=== PATIENT | female | born 1985 | race Caucasian/White ===

== ENCOUNTER 2023-07-28 20:56 | Observation (INO) ==
[2023-07-28] MEDS: SODIUM CHLORIDE 0.9% 1,000 ML IV SCH (21:16)
[2023-07-28 21:44] LABS: Basophils # (auto) 0.07 K/uL (0.00-0.20); Basophils % (auto) 0.7 %; Eosinophils # (auto) 0.03 K/uL (0.00-0.50); Eosinophils % (auto) 0.3 %; Hematocrit (blood only) 46.3 % (37.0-47.0); Hemoglobin 15.8 g/dl (12.0-16.0); Immature Granulocytes # (auto) 0.03 K/uL (0.01-0.20); Immature Granulocytes % (auto) 0.3 %; Lymphocytes # (auto) 2.48 K/uL (1.20-3.40); Lymphocytes % (auto) 24.8 %; Mean Corpuscular Hemoglobin 28.6 pg (25.0-34.0); Mean Corpuscular Hgb Conc 34.1 g/dL (32.0-36.0); Mean Corpuscular Volume 83.9 fL (80.0-100.0); Mean Platelet Volume 11.1 fL (9.4-12.4); Monocytes # (auto) 0.72 K/uL (0.11-0.59); Monocytes % (auto) 7.2 %; Neutrophils # (auto) 6.68 K/uL (1.40-6.50); Neutrophils % (auto) 66.7 %; Platelet Count 379 K/uL (130-400); RDW Coefficient of Variation 11.9 % (11.5-14.5); RDW Standard Deviation 36.1 fL (36.4-46.3); Red Blood Count 5.52 M/uL (4.20-5.40); White Blood Count 10.01 K/ul (4.8-10.8)
[2023-07-28 21:52] LABS: Pregnancy Test, Serum Negative (Negative)
[2023-07-28 21:56] LABS: Albumin Globulin Ratio 1.3 (0.9-2); Albumin Level 4.5 gm/dl (3.4-5.0); BUN Creatinine Ratio 8.9 (10-20); Bilirubin,Total 1.5 mg/dl (0.2-1.0); Calcium 9.7 mg/dl (8.6-10.3); Creatinine Clr Calc Pharmacy 82.9 ml/min; Est GFR (African American) 82.4 ml/min; Est GFR (Non-African American) 71.1 ml/min; Globulin 3.5 gm/dl (2.5-4.0); Potassium 3.5 mmol/L (3.5-5.1)
[2023-07-28] MEDS: ONDANSETRON INJ 2 MG/ML 2 ML VIAL IV STA (22:04)
[2023-07-28] MEDS: LACTATED RINGER'S 1,000 ML IV ONE (23:13)
[2023-07-28] MEDS: diphenhydrAMINE 50 MG/ML VIAL IV STA (23:13)
[2023-07-28] MEDS: METOCLOPRAMIDE HCL INJ 5 MG/ML 2 ML VIAL IV STA (23:13)
--- NOTE | 2023-07-28 23:13 | Emergency Department Note ---
Impression & Plan Nausea & vomiting, Acute epigastric pain, H/O gastric sleeve ED Provider Note Provider: Wei Herrera MD DATE OF SERVICE: 07/28/2023 CHIEF COMPLAINT: Recurrent nausea and vomiting, slight upper abdominal HISTORY OF PRESENT ILLNESS: Patient is a 38-year-old female past medical history of hypothyroidism and gastric sleeve presenting here with family today for evaluation of ongoing issues with recurrent nausea and vomiting. States he had her first episode about a month ago on June 28. He just started several days prior Wegovtyler. States had her last weekly injection this past Sunday. The initial event in June was seen at [facility] acquired medication but was able to go home. Followed up with GI on Sunday and put together that her symptoms were likely secondary to the medication. Seen at [facility] on Sunday and given multiple medications including Zofran, Reglan, and Compazine by her report. Had abdominal ultrasound possibly with some pancreatic inflammation. Low potassium this was repleted and she was sent home. Last several days she was using Zofran but minimally effective. Continues to vomit. Thus came here for evaluation today. Little bit of epigastric discomfort. Denies chest pain. Lightheaded and weak. No diarrhea. No blood in the vomit has been having some chills. PAST MEDICAL HISTORY: As noted above MEDICATIONS: Reviewed home medications SOCIAL HISTORY: No tobacco use reported. PHYSICAL EXAM: GENERAL: alert and oriented in no acute distress on stretcher Head: normocephalic and atraumatic EYES: No injection, discharge or icterus. NECK: Trachea midline. ENT: Mucous membranes pink and moist. LUNGS: Airway patent. No retractions. Breath sounds clear with good air entry bilaterally. HEART: Regular rate and rhythm. No chest wall tenderness ABDOMEN: Soft very slight deep epigastric tenderness. No guarding. No peritonitis. No lower abdominal tenderness. SKIN: Acyanotic, warm, dry, without rashes EXTREMITIES: Without swelling, tenderness or deformity NEUROLOGICAL: No focal deficits. No aphasia. No facial droop or slurred speech. EK bpm. Normal sinus rhythm. No PVC or PAC. No acute ST segment elevation or depression with a QTc of 434. CONTINUOUS CARDIAC MONITORING: was ordered and showed a heart rate of 70s to 80s bpm in normal sinus rhythm 1 view chest x-ray per my interpretation: No evidence of free air. No pneumonia or pneumothorax. Normal cardiac silhouette. Patient's laboratory studies and imaging reviewed. Differential includes Appendicitis, infections, diverticulitis, UTI, obstruction, mesenteric ischemia, aortic pathology, inflammatory bowel disease, renal colic, PUD, pancreatitis, biliary pathology, hernia, volvulus, constipation, as well as other pathologies. IMPRESSION/MEDICAL DECISION MAKING: Blood work from triage obtained. Negative . Evidence of hepatitis or pancreatitis. Slight anion gap likely dehydrational but no evidence of severe hypokalemia or hyponatremia. No leukocytosis. No anemia. Very slight deep tenderness but given her history of gastric sleeve will obtain a CT abdomen pelvis. Given some IV fluid here. Zofran minimally effective for nausea after dose here and will try some Reglan and Benadryl which has been more effective by her report. Seems likely this is secondary to Wegovy and not having diarrheal symptoms. Some of the tremor she reports likely more from dehydration and the continued vomiting. Do not feel antibiotics are indicated. CT of the abdomen pelvis completed and review of report without significant abnormality noted. She has had mild improvement with Reglan. Will bring into the hospital given her failure of outpatient therapy with antiemetics. Patient in agreement this plan. Hospitalist contacted. DIAGNOSIS: Intractable nausea and vomiting, history of gastric sleeve DISPOSITION: Hospitalist will evaluate Patient was agreeable with this plan. Past Med/Surg History Social History Smoking Status: Never smoker Preferred Language: Montserratian Feels Safe at Home: Yes Allergies Allergies Allergy/AdvReac Type Severity Reaction Status Date / Time semaglutide [From Wegovy] AdvReac Severe Vomiting Verified 07/29/23 00:19 Home Meds Home Medications Medication Instructions Recorded Confirmed cyanocobalamin (vitamin B-12) 1,000 mcg IM MONTHLY 07/29/23 07/29/23 1,000 mcg/mL injection solution fluoxetine 20 mg capsule 20 mg PO HS 07/29/23 07/29/23 gabapentin 300 mg capsule 300 mg PO [facility] 07/29/23 07/29/23 levothyroxine 50 mcg tablet 50 mcg PO DAILYBB 07/29/23 07/29/23 norethindrone (contraceptive) 0.35 0.35 mg PO HS 07/29/23 07/29/23 mg tablet omeprazole 40 mg capsule,delayed 40 mg PO [facility] 07/29/23 07/29/23 release ondansetron 4 mg disintegrating 4 mg PO Q8 PRN Nausea 07/29/23 07/29/23 tablet spironolactone 50 mg tablet 50 mg PO HS 07/29/23 07/29/23 Results & Data (ED) Vital Signs Vital Signs - 24 hr 07/28/23 20:59 07/28/23 21:13 07/28/23 21:13 Temperature 36.8 C Temperature Source Temporal Artery Scan Pulse Rate 97 H Respiratory Rate 18 Respiratory Effort / Characteristics Non-Labored Spontaneous Respiratory Depth Normal Respiratory Pattern Regular Blood Pressure 157/83 H Blood Pressure Mean 107 Pulse Oximetry 99 Oxygen Delivery Method Room Air Room Air Sepsis Recent Fever Within 48 Hours No Sepsis New/Unexplained Change in Mental Status No Sepsis Action Taken by Nursing No Action Required 07/28/23 21:13 Temperature Temperature Source Pulse Rate 87 Respiratory Rate Respiratory Effort / Characteristics Respiratory Depth Respiratory Pattern Blood Pressure Blood Pressure Mean Pulse Oximetry Oxygen Delivery Method Sepsis Recent Fever Within 48 Hours Sepsis New/Unexplained Change in Mental Status Sepsis Action Taken by Nursing Laboratory Data 07/28/23 21:14 07/28/23 21:14 Lab Results 07/28/23 Range/Units 21:14 WBC 10.01 (4.8-10.8) K/ul RBC 5.52 H (4.20-5.40) M/uL Hgb 15.8 (12.0-16.0) g/dl Hct 46.3 (37.0-47.0) % MCV 83.9 (80.0-100.0) fL MCH 28.6 (25.0-34.0) pg MCHC 34.1 (32.0-36.0) g/dL RDW Std Deviation 36.1 L (36.4-46.3) fL RDW Coeff of Marycarmen 11.9 (11.5-14.5) % Plt Count 379 (130-400) K/uL MPV 11.1 (9.4-12.4) fL Immature Gran % (Auto) 0.3 % Neut % (Auto) 66.7 % Lymph % (Auto) 24.8 % [place] % (Auto) 7.2 % Eos % (Auto) 0.3 % Baso % (Auto) 0.7 % Neut # (Auto) 6.68 H (1.40-6.50) K/uL Lymph # (Auto) 2.48 (1.20-3.40) K/uL [place] # (Auto) 0.72 H (0.11-0.59) K/uL Eos # (Auto) 0.03 (0.00-0.50) K/uL Baso # (Auto) 0.07 (0.00-0.20) K/uL Immature Gran # (Auto) 0.03 (0.01-0.20) K/uL Sodium 137 (136-145) mmol/L Potassium 3.5 (3.5-5.1) mmol/L Chloride 104 (98-107) mmol/L Carbon Dioxide 20 L (21-32) mmol/L Anion Gap 13 H (3-11) BUN 9 (6-23) mg/dl Creatinine 1.01 (0.6-1.2) mg/dl Est Cr Clr Drug Dosing 82.9 ml/min Est GFR ( Amer) 82.4 ml/min Est GFR (Non-Af Amer) 71.1 ml/min BUN/Creatinine Ratio 8.9 L (10-20) Glucose 98 (70-99(Fasting)) mg/dl Calcium 9.7 (8.6-10.3) mg/dl Total Bilirubin 1.5 H (0.2-1.0) mg/dl AST 14 (13-39) U/L ALT 6 L (7-52) U/L Alkaline Phosphatase 59 (34-104) U/L Total Protein 8.0 (6.0-8.3) gm/dl Albumin 4.5 (3.4-5.0) gm/dl Globulin 3.5 (2.5-4.0) gm/dl Albumin/Globulin Ratio 1.3 (0.9-2) Lipase 51 (11-82) U/L HCG, Qual Negative (Negative) Administered Medications Discontinued Medications Diphenhydramine HCl (Diphenhydramine 50 Mg/Ml Vial) 25 mg IV NOW STA Stop: 07/28/23 22:59 Last Admin: 07/28/23 23:13 Dose: 25 mg Documented By: [facility] Sodium Chloride (Nss) 1,000 mls @ 999 mls/hr IV .Q1H1M VIOLET Stop: 07/28/23 22:15 Last Infusion: 07/28/23 22:32 Dose: Infused Documented By: [facility] Admin: 07/28/23 21:16 Dose: 999 mls/hr Documented By: Burt Lactated Ringer's (Lr) 1,000 mls @ 999 mls/hr IV .Q1H1M ONE Stop: 07/28/23 23:58 Last Infusion: 07/29/23 00:41 Dose: Infused Documented By: Admin: 07/28/23 23:13 Dose: 999 mls/hr Documented By: ELYSIA Ioversol (Optiray 320 500ml) 88 ml IV ONCE ONE Stop: 07/28/23 23:29 Last Admin: 07/28/23 23:28 Dose: 88 ml Documented By: BONNY Metoclopramide HCl (Metoclopramide Hcl Inj 5 Mg/Ml 2 Ml Vial) 10 mg IV NOW STA Stop: 07/28/23 22:59 Last Admin: 07/28/23 23:13 Dose: 10 mg Documented By: ELYSIA Ondansetron HCl (Ondansetron Inj 2 Mg/Ml 2 Ml Vial) 4 mg IV NOW STA Stop: 07/28/23 22:00 Last Admin: 07/28/23 22:04 Dose: 4 mg Documented By: [facility] Imaging Data Radiologist's Impression: Abdomen/Pelvis CT 07/28/23 22:58 Exam(s): CT ABDOMEN + PELVIS With Contrast IV Amt: 88 ML EXAM: CT Abdomen and Pelvis With Intravenous Contrast CLINICAL HISTORY: Reason for exam: epigastric pain, n/v, hx gastric sleeve. TECHNIQUE: Axial computed tomography images of the abdomen and pelvis with intravenous contrast. CTDI is 26 mGy and DLP is 1309 mGy-cm. Automated exposure control was utilized for the study. A dose lowering technique was utilized adhering to the principles of ALARA. CONTRAST: Patient received 88 ML of IV contrast COMPARISON: No relevant prior studies available. FINDINGS: Mediastinum: Small hiatal hernia. ABDOMEN: Liver: Unremarkable. Gallbladder and bile ducts: Unremarkable. Pancreas: Unremarkable. Spleen: Unremarkable. Adrenals: Unremarkable. Kidneys and ureters: Unremarkable. No obstructing stones. No hydronephrosis. Stomach and bowel: Status post sleeve gastrectomy without acute abnormality. PELVIS: Appendix: No findings to suggest acute appendicitis. Bladder: Unremarkable. Reproductive: Unremarkable as visualized. ABDOMEN and PELVIS: Intraperitoneal space: Unremarkable. No free air. No significant fluid collection. Bones/joints: No acute fracture. Soft tissues: Unremarkable. Vasculature: Unremarkable. Lymph nodes: Unremarkable. IMPRESSION: 1. No acute abnormality. 2. Status post sleeve gastrectomy without acute abnormality. 3. Small hiatal hernia. Electronically signed by: Kerwin Yepez MD 07/28/23 23:56 PM Discharge Plan Visit Data Chief Complaint: Shortness of Breath/Dyspnea Stated Complaint: VOMITING SINCE SUNDAY, SOB, LIGHTHEADED ED Provider: Wei Herrera Discharge Problem: Nausea & vomiting, Acute epigastric pain, H/O gastric sleeve Patient Disposition: Being Evaluated by Hospitalist Forms Stand Alone Forms: [facility] Prescriptions Prescriptions: No Action omeprazole 40 mg capsule,delayed release(DR/EC) 40 mg PO [facility] levothyroxine 50 mcg tablet 50 mcg PO DAILYBB gabapentin 300 mg capsule 300 mg PO [facility] cyanocobalamin (vitamin B-12) 1,000 mcg/mL solution 1,000 mcg IM MONTHLY fluoxetine 20 mg capsule 20 mg PO HS norethindrone (contraceptive) 0.35 mg tablet 0.35 mg PO HS ondansetron 4 mg tablet,disintegrating 4 mg PO Q8 PRN (Reason: Nausea) spironolactone 50 mg tablet 50 mg PO HS Referrals Referrals: PCP,NO [Physician] -
[2023-07-28] MEDS: OPTIRAY 320 500ml IV ONE (23:28)
--- NOTE | 2023-07-28 23:57 | CT Scan Report ---
Exam(s): CT ABDOMEN + PELVIS With Contrast IV Amt: 88 ML EXAM: CT Abdomen and Pelvis With Intravenous Contrast CLINICAL HISTORY: Reason for exam: epigastric pain, n/v, hx gastric sleeve. TECHNIQUE: Axial computed tomography images of the abdomen and pelvis with intravenous contrast. CTDI is 26 mGy and DLP is 1309 mGy-cm. Automated exposure control was utilized for the study. A dose lowering technique was utilized adhering to the principles of ALARA. CONTRAST: Patient received 88 ML of IV contrast COMPARISON: No relevant prior studies available. FINDINGS: Mediastinum: Small hiatal hernia. ABDOMEN: Liver: Unremarkable. Gallbladder and bile ducts: Unremarkable. Pancreas: Unremarkable. Spleen: Unremarkable. Adrenals: Unremarkable. Kidneys and ureters: Unremarkable. No obstructing stones. No hydronephrosis. Stomach and bowel: Status post sleeve gastrectomy without acute abnormality. PELVIS: Appendix: No findings to suggest acute appendicitis. Bladder: Unremarkable. Reproductive: Unremarkable as visualized. ABDOMEN and PELVIS: Intraperitoneal space: Unremarkable. No free air. No significant fluid collection. Bones/joints: No acute fracture. Soft tissues: Unremarkable. Vasculature: Unremarkable. Lymph nodes: Unremarkable. IMPRESSION: 1. No acute abnormality. 2. Status post sleeve gastrectomy without acute abnormality. 3. Small hiatal hernia. Electronically signed by: Kerwin Yepez MD 07/28/23 23:56 PM
[2023-07-29 01:20] LABS: Influenza A virus by PCR Negative (Neg); Influenza B virus by PCR Negative (Neg); RSV by PCR Negative (Neg); SARS CoV2 RNA(COVID-19) Ceph NEGATIVE (Negative)
--- NOTE | 2023-07-29 03:30 | History & Physical Report ---
Date of Service July 29, 2023 Assessment & Plan (1) Nausea & vomiting: Plan: 38-year-old female with past med history significant for GERD, iron deficiency anemia following bariatric surgery, depression, presents with persistent nausea vomiting since last Sunday. Patient states having nausea vomiting since last 1 month but persistent since last Sunday. Saw GI last Sunday and her symptoms thought to be from Wegvoy and it was stopped. Last dose of wegvoy was last Sunday and she is taking it since last January. She also was in the [facility] ER on Sunday and was given fluids and Zofran and Reglan. Patient said Reglan worked better for her. And she did okay and was discharged. Patient says again since last Sunday she is having persistent nausea vomiting and yesterday she could not eat anything and came back to the ER . Has mild abdominal discomfort. [place] shortness of breath earlier but that resolved now. Denies any chest pain. No fevers. No headache. No runny nose or sore throat. No cough. Normal bowel movements. Normal bladder movements. Resting comfortably currently. Persistent nausea vomiting Thought to be from wegvoy which is currently stopped CT abdomen pelvis okay Lipase is okay Will place her on n.p.o., IV fluids, IV antiemetics as needed IV Pepcid Consult GI in a.m. for further recommendations Hypothyroidism On Synthyroid Depression On paroxetine DVT prophylaxis Lovenox Disposition Observation medical floor Full code History of Present Illness Chief Complaint: Persistent nausea and vomiting Primary Care Provider: Wei Laughlin PA-C 38-year-old female with past med history significant for GERD, iron deficiency anemia following bariatric surgery, depression, presents with persistent nausea vomiting since last Sunday. Patient states having nausea vomiting since last 1 month but persistent since last Sunday. Saw GI last Sunday and her symptoms thought to be from Wegvoy and it was stopped. Last dose of wegvoy was last Sunday and she is taking it since last January. She also was in the [facility] ER on Sunday and was given fluids and Zofran and Reglan. Patient said Reglan worked better for her. And she did okay and was discharged. Patient says again since last Sunday she is having persistent nausea vomiting and yesterday she could not eat anything and came back to the ER . Has mild abdominal discomfort. [place] shortness of breath earlier but that resolved now. Denies any chest pain. No fevers. No headache. No runny nose or sore throat. No cough. Normal bowel movements. Normal bladder movements. Resting comfortably currently. Past medical history. As mentioned above Past surgical history. EGD. Injection of lumbosacral spine. Laparoscopic sleeve gastrectomy Social history. No smoking. No alcohol use. No drug use. Family history. Paternal grandfather had bone cancer. Skin cancer. Paternal grandmother had breast cancer. Bladder cancer. Father has hypertension. Allergies Allergy/AdvReac Type Severity Reaction Status Date / Time semaglutide [[facility]] AdvReac Severe Vomiting Verified 07/29/23 00:19 Home Medications Medication Instructions Recorded Confirmed Type cyanocobalamin (vitamin B-12) 1,000 mcg IM MONTHLY 07/29/23 07/29/23 History 1,000 mcg/mL injection solution fluoxetine 20 mg capsule 20 mg PO HS 07/29/23 07/29/23 History gabapentin 300 mg capsule 300 mg PO [facility] 07/29/23 07/29/23 History levothyroxine 50 mcg tablet 50 mcg PO DAILYBB 07/29/23 07/29/23 History norethindrone (contraceptive) 0.35 0.35 mg PO HS 07/29/23 07/29/23 History mg tablet omeprazole 40 mg capsule,delayed 40 mg PO [facility] 07/29/23 07/29/23 History release ondansetron 4 mg disintegrating 4 mg PO Q8 PRN Nausea 07/29/23 07/29/23 History tablet spironolactone 50 mg tablet 50 mg PO HS 07/29/23 07/29/23 History Past Med/Surg History Social History Smoking Status: Never smoker Second Hand Exposure: No; Do You Dip or Chew Tobacco: No; Hx Alcohol Use: No Hx Substance Use: No Preferred Language: Slovak Communication Ability: Effective Maintenance Chief Required: No Beliefs That Will Affect Care: None Current Living Situation: Alone Other Information That Helps Us Care for You: No Feels Safe at Home: Yes Safety Concerns: Feels Safe At This Time Assistive Devices: None Review of Systems Review of Systems: All systems reviewed & are unremarkable except as noted in HPI & below Physical Exam Physical Exam: General- Not in distress Head- atraumatic Eyes- PERRL. ENT- oropharynx clear Neck- supple, no JVD. Lungs- clear to auscultation no wheezing or crackles. Heart- regular rhythm; no murmur, no gallop. Abdomen- normal bowel sounds, soft, nontender, no distension Extremities- no pretibial edema, no erythema Neuro- alert, oriented PERRL, no facial palsy; no dysarthria; moves extremities. Results & Data Results & Data Vital Signs (Past 12 Hours) Vital Signs Temp Pulse Resp BP Pulse Ox O2 Del Method 07/29/23 01:15 85 07/29/23 00:00 76 13 136/76 98 Room Air 07/28/23 22:00 75 16 140/97 98 Room Air 07/28/23 21:13 87 07/28/23 21:13 Room Air 07/28/23 20:59 36.8 C 97 H 18 157/83 H 99 Room Air Diagnostic Findings Laboratory Results WBC 10.01 K/ul (4.8-10.8) 07/28/23 21:14 RBC 5.52 M/uL (4.20-5.40) H 07/28/23 21:14 Hgb 15.8 g/dl (12.0-16.0) 07/28/23 21:14 Hct 46.3 % (37.0-47.0) 07/28/23 21:14 MCV 83.9 fL (80.0-100.0) 07/28/23 21:14 MCH 28.6 pg (25.0-34.0) 07/28/23 21:14 MCHC 34.1 g/dL (32.0-36.0) 07/28/23 21:14 RDW Std Deviation 36.1 fL (36.4-46.3) L 07/28/23 21:14 RDW Coeff of Marycarmen 11.9 % (11.5-14.5) 07/28/23 21:14 Plt Count 379 K/uL (130-400) 07/28/23 21:14 MPV 11.1 fL (9.4-12.4) 07/28/23 21:14 Immature Gran % (Auto) 0.3 % 07/28/23 21:14 Neut % (Auto) 66.7 % 07/28/23 21:14 Lymph % (Auto) 24.8 % 07/28/23 21:14 [place] % (Auto) 7.2 % 07/28/23 21:14 Eos % (Auto) 0.3 % 07/28/23 21:14 Baso % (Auto) 0.7 % 07/28/23 21:14 Neut # (Auto) 6.68 K/uL (1.40-6.50) H 07/28/23 21:14 Lymph # (Auto) 2.48 K/uL (1.20-3.40) 07/28/23 21:14 [place] # (Auto) 0.72 K/uL (0.11-0.59) H 07/28/23 21:14 Eos # (Auto) 0.03 K/uL (0.00-0.50) 07/28/23 21:14 Baso # (Auto) 0.07 K/uL (0.00-0.20) 07/28/23 21:14 Immature Gran # (Auto) 0.03 K/uL (0.01-0.20) 07/28/23 21:14 Sodium 137 mmol/L (136-145) 07/28/23 21:14 Potassium 3.5 mmol/L (3.5-5.1) 07/28/23 21:14 Chloride 104 mmol/L (98-107) 07/28/23 21:14 Carbon Dioxide 20 mmol/L (21-32) L 07/28/23 21:14 Anion Gap 13 (3-11) H 07/28/23 21:14 BUN 9 mg/dl (6-23) 07/28/23 21:14 Creatinine 1.01 mg/dl (0.6-1.2) 07/28/23 21:14 Est Cr Clr Drug Dosing 82.9 ml/min 07/28/23 21:14 Est GFR ( Amer) 82.4 ml/min 07/28/23 21:14 Est GFR (Non-Af Amer) 71.1 ml/min 07/28/23 21:14 BUN/Creatinine Ratio 8.9 (10-20) L 07/28/23 21:14 Glucose 98 mg/dl (70-99(Fasting)) 07/28/23 21:14 Calcium 9.7 mg/dl (8.6-10.3) 07/28/23 21:14 Total Bilirubin 1.5 mg/dl (0.2-1.0) H 07/28/23 21:14 AST 14 U/L (13-39) 07/28/23 21:14 ALT 6 U/L (7-52) L 07/28/23 21:14 Alkaline Phosphatase 59 U/L (34-104) 07/28/23 21:14 Total Protein 8.0 gm/dl (6.0-8.3) 07/28/23 21:14 Albumin 4.5 gm/dl (3.4-5.0) 07/28/23 21:14 Globulin 3.5 gm/dl (2.5-4.0) 07/28/23 21:14 Albumin/Globulin Ratio 1.3 (0.9-2) 07/28/23 21:14 Lipase 51 U/L (11-82) 07/28/23 21:14 HCG, Qual Negative (Negative) 07/28/23 21:14 SARS-CoV-2 (PCR) NEGATIVE (Negative) 07/29/23 Unknown Influenza Type A (PCR) Negative (Neg) 07/29/23 Unknown Influenza Type B (PCR) Negative (Neg) 07/29/23 Unknown RSV (RT-PCR) Negative (Neg) 07/29/23 Unknown Impressions Abdomen/Pelvis CT 07/28/23 22:58 Exam(s): CT ABDOMEN + PELVIS With Contrast IV Amt: 88 ML EXAM: CT Abdomen and Pelvis With Intravenous Contrast CLINICAL HISTORY: Reason for exam: epigastric pain, n/v, hx gastric sleeve. TECHNIQUE: Axial computed tomography images of the abdomen and pelvis with intravenous contrast. CTDI is 26 mGy and DLP is 1309 mGy-cm. Automated exposure control was utilized for the study. A dose lowering technique was utilized adhering to the principles of ALARA. CONTRAST: Patient received 88 ML of IV contrast COMPARISON: No relevant prior studies available. FINDINGS: Mediastinum: Small hiatal hernia. ABDOMEN: Liver: Unremarkable. Gallbladder and bile ducts: Unremarkable. Pancreas: Unremarkable. Spleen: Unremarkable. Adrenals: Unremarkable. Kidneys and ureters: Unremarkable. No obstructing stones. No hydronephrosis. Stomach and bowel: Status post sleeve gastrectomy without acute abnormality. PELVIS: Appendix: No findings to suggest acute appendicitis. Bladder: Unremarkable. Reproductive: Unremarkable as visualized. ABDOMEN and PELVIS: Intraperitoneal space: Unremarkable. No free air. No significant fluid collection. Bones/joints: No acute fracture. Soft tissues: Unremarkable. Vasculature: Unremarkable. Lymph nodes: Unremarkable. IMPRESSION: 1. No acute abnormality. 2. Status post sleeve gastrectomy without acute abnormality. 3. Small hiatal hernia. Electronically signed by: Kerwin Yepez MD 07/28/23 23:56 PM ECG Additional Comments: ECG. Normal sinus rhythm rate of 73. No acute ST changes seen. Code Status & VTE Plan VTE Prophylaxis Plan VTE Prophylaxis will be ordered: Yes
--- OUTSIDE RECORDS SUMMARY | 2023-07-29 04:48 | External Medical Summary | Summary of Care ---
Author Name Unknown Organization [facility] Address [address] [place] [address] Phone [phone] Care Team Providers Care Rail Equipment Operator Name Role Phone Wei Laughlin PA-C Primary Care Provider [phone] Reason for Visit * Reason Comments Vomiting * Auth/Cert Specialty Diagnoses / Procedures Referred By Conttiffany t Referred To Contact [facility] [address] [place] [address] Phone: [phone] Emergency Medicine [facility] [address] [place] [address] Referral ID Status Reason Start Date Expiration Date Visits Re quested Visits Authorized [id number] Encounter Details Date Type Department Care Team (Late st Contact Info) Description 07/25/2023 8:23 AM EST - 07/25/2023 2:52 PM [facility] Emergency [facility] ([facility]) [address] [facility] [place] [address] Kevin Davidson, DO [address] [place] [address] Nausea and vomiting, unspecified vomiting type (Primary Dx); Weakness; Dehydration Discharge Disposition: Home - Self Care Allergies No known active allergiesdocumented as of this encounter (statuses as of 07/26/2023) Medications Medication Sig Dispensed Refills Start Date End Date Status Clindamycin Phosphate 1 % External Lotion Apply to face every morning 180 mL 3 09/09/2021 Active valACYclovir HCl 500 MG Oral Tablet (Valtrex) TAKE 1 TAB BY MOUTH DAILY. UNTIL FINISHED INDICATIONS: NEEDED FOR COLD SORES. 30 Tablet 5 10/12/2021 Active Tretinoin 0.025 % External CreamIndications:Acn e vulgaris Apply to clean and moisturized face every other night x 2-3 weeks and then increase to nightly as tolerated; apply to dry skin 135 g 3 04/19/2022 Active tiZANidine HCl 4 MG Oral Tablet (Zanaflex)Indication s:Myofascial pain syndrome, cervical Take 1 Tablet by mouth every 8 hours as needed for Muscle spasms. 90 Tablet 3 09/18/2022 Active Additional Information Patient not taking.Reported on 07/24/2023 Gabapentin 300 MG Oral Capsule (Neurontin) Take by mouth 1 Capsule in by mouth 2 times per day 180 Capsule 3 10/03/2022 Active Omeprazole 40 MG Oral Capsule Delayed Release (PriLOSEC)Indication s:Gastroesophageal reflux disease without esophagitis TAKE 1 CAPSULE BY MOUTH IN THE MORNING AND 1 CAPSULE BEFORE BEDTIME 180 Capsule 3 10/03/2022 Active FLUoxetine HCl 20 MG Oral Capsule (PROzac)Indications: Depression with anxiety Take 1 Capsule by mouth in the morning. 90 Capsule 3 10/03/2022 Active Levothyroxine Sodium 50 MCG Oral Tablet (Levoxyl) Take 1 Tablet by mouth in the morning. 90 Tablet 3 10/03/2022 Active Spironolactone 50 MG Oral Tablet (Aldactone)Indicatio ns:Acne vulgaris Take 1 Tablet by mouth in the morning. 90 Tablet 1 10/30/2022 Active Syringe Luer Lock 25G X 5/8" 3 MLIndications:Intest inal postoperative nonabsorption For vitamin B12 injections 50 Each 0 01/16/2023 Active NovoFine 32G X 6 MM (NOVOFINE 32G PEN NEEDLE)Indications:O besity, Class II, BMI 35-39.9, isolated Use with Saxenda pen 50 Each 2 01/17/2023 Active Additional Information Patient not taking.Reported on 07/24/2023 Cyanocobalamin 1000 MCG/ML Injection Solution (Cyanocobalamin)Sanna cations:Vitamin B12 deficiency (dietary) anemia Inject 1,000 mcg into a large muscle every 30 days. 1 mL 11 01/22/2023 Active traMADol HCl 50 MG Oral Tablet (Ultram)Indications: Kidney stone Take 1 Tablet by mouth every 8 hours as needed for Pain, Severe. 15 Tablet 0 02/28/2023 Active Phenazopyridine HCl 200 MG Oral Tablet (Pyridium)Indication s:Acute cystitis with hematuria Take 1 Tablet by mouth 3 times a day as needed for Pain, Moderate. After meals for pain with urination 10 Tablet 0 03/08/2023 Active Additional Information Patient not taking.Reported on 07/24/2023 Norethindrone 0.35 MG Oral TabletIndications:Me norrhagia with irregular cycle,Primary dysmenorrhea,Encount er for surveillance of contraceptive pills Take 1 Tablet by mouth every evening. 84 Tablet 4 05/07/2023 Active Ondansetron 4 MG Oral Tablet Disintegrating (Zofran) Place 1 Tablet on tongue every 8 hours as needed for Nausea. dissolve on tongue. 2 Tablet 0 2023 Active Ondansetron HCl 4 MG Oral Tablet Take 1 Tablet by mouth every 8 hours as needed for Nausea. 12 Tablet 0 2023 Active Wegovy 1.7 MG/0.75ML Subcutaneous Solution Auto-injector (Semaglutide-Weight Management) Inject 1.7 mg (1 pen) under the skin once a week for 28 days. 4 mL 0 07/24/2023 4 Active Ondansetron 4 MG Oral Tablet Disintegrating (Zofran) Place 1 Tablet on tongue every 8 hours as needed for Nausea or Vomiting for up to 15 doses. dissolve on tongue. 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 Possibly increased risk of point development of Malignant Melanoma within such a lesion Although the true risk is likely low Prophylactic excision is a consideration But would probably be quite mutilating Could have evaluated and get opinion from Plastic Surgeon Jamie Reynolds MD 01/12/2016 11:26 PM Family history of breast cancer 01/09/2012 Family history of bladder cancer 01/09/2012 documented as of this encounter (statuses as of 07/26/2023) Resolved Problems Problem Noted Date Diagnosed Date Resolved Date Chronic obstructive pulmonary disease 08/25/2021 12/16/2021 Major depressive disorder, r ecurrent episode, moderate 06/26/2020 06/26/2020 Overview: per PCP notes Opioid dependence, uncomplicated 07/18/2018 07/18/2018 Paronychia 06/26/2016 09/05/2019 Pneumonia due to organism 01/09/2011 Overview: ICD-10 update of inactive term Body mass index (BMI) of 45.0-49.9 in adult 09/28/2010 03/07/2017 Overview: ICD-10 update of inactive term Major depressive disorder 09/28/2010 Overview: ICD-10 update of inactive term Calculus of kidney 12/15/2008 Overview: 12/10/08: bilat renal stones Other specified adjustment reaction 01/07/2008 03/07/2016 documented as of this encounter (statuses as of 07/26/2023) Immunizations Name Administration Dates Next Due H1N1 2009 Influenza, IM 06/22/2009 HPV Vaccine, 4-Valent 01/14/2008,09/16/2007,06/28 Seasonal Influenza, PF, 6 M & above, IM , (FluLaval or Fluzone) 04/17/2023,04/12/2022,03/22/2021 Seasonal Influenza, Quadriva lent, No Preserve, IM 05/07/2020,04/14/2020,03/17/2019 Seasonal Influenza, Split, I IV3, With Preserve, Inj 04/17/2014,02/03/2013,03/08/2012,2009,04/15/2008 TD, Preservative Free 03/17/2019 TDAP (age 11 and older)(Adacel) 11/21/2007 documented as of this encounter Social History Tobacco Use Types Packs/Day Years Used Date Smoking Tobacco: Never Smokeless Tobacco: Never Alcohol Use Standard Drinks/Week Comments No 0 (1 standard drink = 0.6 oz pur e alcohol) PHQ-2 Answer Date Recorded PHQ Adult Total Score 0 11/06/2022 Hunger Vital Sign Answer Date Recorded Within the past 12 months, y ou worried that your food would run out before you got the money to buy more. Never true 11/07/19 23 Within the past 12 months, t he food you bought just didn't last and you didn't have money to get more. Never true 11/06/2022 Sex and Gender Information Value Date Recorded Sex Assigned at Female 06/10/2019 11:01 AM EST Gender Identity Female 06/10/2019 11:01 AM EST Sexual Orientation Straight 06/10/2019 11 :01 AM EST Job Start Date Occupation Industry Not on file Not on file Not on file documented as of this encounter Last Filed Vital Signs Vital Sign Reading Time Taken Comments Blood Pressure 127/74 07/25/2023 2:30 PM EST Pulse 81 07/25/2023 2:30 PM EST Temperature 36.5 C (97.7 F) 07/25/2023 8:20 AM ES T Respiratory Rate 20 07/25/2023 2:30 PM EST Oxygen Saturation 98% 07/25/2023 8:20 AM EST Inhaled Oxygen Concentration - - Weight - - Height - - Body Mass Index - - documented in this encounter Discharge Instructions * Discharge Instructions* Kevin Davidson DO - 07/25/2023 2:34 PM EST Your labs revealed signs of dehydration. You improved here in the ER. Please take the Zofran as prescribed and follow-up with your GI doctors and your primary care doctor. It is likely that medication is causing your symptoms. Please discuss a different medication to take instead of that 1. If you develop any new or concerning symptoms such as chest pain, difficulty breathing, fevers, persistent nausea/vomiting, inability to tolerate oral hydration, severe abdominal pain, or any other concerning symptoms please return to the emergency department for evaluation. documented in this encounter ED Notes * Kevin Davidson, - 07/25/2023 11:17 AM EST HISTORY OF PRESENT ILLNESS Trisha Arias is a 38 year old female who presents to the ED for evaluation of Vomiting. The patient was seen at 07/25/23 0917. 38-year-old female with a history of reflux, gastric sleeve, presenting to the emergency department with nausea and vomiting. She denies any abdominal pain. She denies any abnormal bowel movements or urine output. She only feels short of breath because she has chills. She denies any chest pain. She feels weak and ill. They believe it is the Wegovy shots she is gettingthat are contributing as she saw GI on Sunday when she started having the nausea and vomiting. It has persisted and worsened. The Zofran at home has not helped. She did have an episode about a week ago but thought she may have had food poisoning and now does believe it is the medication as well. History provided by: patient clinical specialist vascular used: No Vomiting Review of Systems Gastrointestinal: Positive for vomiting. The patient's allergies, past history, and medications were reviewed. PHYSICAL EXAM Initial Vitals (see all): BP 154/79 | Pulse 75 | Resp 24 | Temp 97.7 | O2 98 %Weight 85.73 kg | Height 165.1 cm | BMI 31.45 kg/m2 Initial Pain Assessment (see all): 0 (no pain)/10 ([facility] Adult Scale 0-10) Physical Exam Vitals and nursing note reviewed. Constitutional: General: She is not in acute distress. Appearance: Normal appearance. She is well-developed. She is ill-appearing. She is not diaphoretic. HENT: Head: Normocephalic and atraumatic. Nose: Nose normal. Mouth/Throat: Mouth: Mucous membranes are moist. Pharynx: Oropharynx is clear. Eyes: Extraocular Movements: Extraocular movements intact. Cardiovascular: Rate and Rhythm: Normal rate and regular rhythm. Pulmonary: Effort: Pulmonary effort is normal. No respiratory distress. Breath sounds: Normal breath sounds. No wheezing or rales. Abdominal: General: Bowel sounds are normal. There is no distension. Palpations: Abdomen is soft. Tenderness: There is no abdominal tenderness. There is no guarding. Musculoskeletal: General: Normal range of motion. Cervical back: Normal range of motion. Skin: General: Skin is warm. Neurological: General: No focal deficit present. Mental Status: She is alert. PROCEDURES AND TREATMENTS ED Orders | ED Results MEDICAL DECISION MAKING Nursing notes and vital signs were reviewed. ED Course as of 07/25/23 1437 Wed Jul 25, 2023 1137 Lactate is 4.3 and this is after a fluid bolus. Patient's lipase is 78. I have ordered an ultrasound. I have also added on a direct bilirubin which is normal. She did start to have more nausea but for a time had improved after the Reglan. I gave her Tigan and I am going to evaluate an EKG to be sure her QT segment is not prolonging. [AT] 1144 Patient's EKG reveals normal intervals. I am going to order her more antiemetics if needed. [AT] 1424 Patient is feeling better. Her lactate has improved. No acute findings on ultrasound. I will send her a prescription for Zofran. Since her lactate is cleared I am going to discharge her with return precautions and follow-up to her doctors. She understands she may need to return if her symptomscome back. [AT] ED Course User Index [AT] Kevin Davidson, Differential Diagnoses Based on my history, physical exam, and evaluation, the differential includes, but is not limited, to the following diagnoses: Dehydration, electrolyte abnormality, medication side effect, pancreatitis, cholecystitis, choledocholithiasis, peptic ulcer disease, reflux, gastritis, bowel obstruction less likely, UTI less likely, viral illness, food poisoning. 38-year-old female presenting to the emergency department with persistent nausea and vomiting. Likely a side effect from her Wegovy injections. Patient appears ill and tired. Her vitals are overall reassuring thankfully. She does have a leukocytosis on labs ordered from triage. She also has hypokalemia. An anion gap and decreased bicarb. I will send a lactate. She is being provided fluids. She has not responded to the Zofran. I will give her a dose of Reglan. She has no tenderness on exam. Amount and/or Complexity of Data Reviewed Labs: ordered. Radiology: ordered. ECG/medicine tests: ordered. Risk Prescription drug management. Clinical Impressions Nausea and vomiting, unspecified vomiting type Dehydration Disposition Discharged. The patient's condition at disposition was: stable. Discharge Medications Disp Refills Start End Ondansetron 4 MG Oral Tablet Disintegrating (Zofran) 15 Tablet 0 07/25/2023 -- Sig - Route: Place 1 Tablet on tongue every 8 hours as needed for Nausea or Vomiting for up to 15 doses. dissolve on tongue. - On Tongue Class: ePrescribing Renewals Renewal requests to authorizing provider (Kevin Davidson DO) <b>prohibited</b> Kevin Davidson * Jo Ann Givens RN - 07/25/2023 8:21 AM EST Patient comes in with vomiting and dry heaving since Sunday. Was recently started on who told her to come to Ed if it continued. documented in this encounter Miscellaneous Notes * ED Inspector Motor Vehicles Note - Ritesh Santamaria RN - 07/25/2023 2:52 PM EST Discharge instructions provided and pt verbalized understanding. Pt to take medication as prescribed and f/u with PCP. * Pt Handout (on AVS) - Kevin Davidson DO - 07/25/2023 2:36 PM EST Images from the original note were not included. [id number] Dehydration The human body is comprised largely of water. If you lose more fluids than you take in, you can become dehydrated. This means there is not enough fluid in your body for it to function right. Mild dehydration can cause thirst, fatigue, weakness, confusion, and muscle cramps. In severe cases, it can lead to kidney damage, brain damage, and even . That's why getting treatment right away is crucial. Risk factors Anyone can become dehydrated. But babies, children, and older adults are at the greatest risk. Older adults who must stay in one place are at especially high risk. They are unable to get up to get something to drink. It can be a bigger problem if they can't communicate. You are most likely to lose fluids with severe vomiting, diarrhea, or a fever. Exercising or working hard?especially in hot weather?can also cause extra fluid loss. Using certain medicines such as water pills (diuretics) that make you pee more can also raise your risk. The risk can be higher in thehot summer months. What to do Drinking liquids is the best way to prevent dehydration. Water is best. But juice or frozen pops can also help. For adults, don't drink liquids that contain caffeine or alcohol to rehydrate. These drinks will cause you to pee more. This raises your risk for more fluid loss. Your healthcare providermay suggest drinking electrolyte solutions. These put back electrolytes that may be lost along withthe fluid. When to go to the emergency room (ER) Go to an ER right away for these symptoms: Adults Very dark urine and little or no urine output Dizziness, weakness, confusion, or fainting Children Sunken eyes For babies, sunken soft spot (fontanelle) on the head Little or no urine output. For babies, no wet diaper in 8 hours. Very dark urine Skin that doesn't bounce back quickly when pinched Crying without tears Lethargy, decreased activity, or increased sleepiness What to expect in the ER Your blood pressure, temperature, and heart rate will be checked. You may have blood or urine testsdone. The main treatment for dehydration is fluids. You may be given these to drink. Or you may getthem through a vein in your arm. You also may be treated for diarrhea, vomiting, or a high fever. Last Reviewed Date: 12/26/202119996474-2698 [employer]. All rights reserved. This information is not intended as a substitute for professional medical care. Always follow your healthcare professional's instructions. documented in this encounter Plan of Treatment Upcoming Encounters Date Type Department Care Team (Late st Contact Info) Description 10/09/2023 4:[address] PM [address] [place] [phone] Wei Laughlin PA-C [address] [place] [address] 10/24/2023 10:00 AM EDT Nutrition Services Nutrition & Weight Management, [facility] [address] [facility] [place] [address] Lorelei Munoz RDN [address] [facility] [place] [address] 11/13/2023 1:10 PM EDT Office Visit Dermatology [facility] [place] [address] [place] [address] Ruth Ann Teran PA-C [address] [facility] [address] 02/06/2024 11:20 AM EDT Office Visit Nutrition & Weight Management, [facility] [address] [facility] [place] [address] Rachele Mike PA-C [address] [facility] [place] [address] 05/08/2024 9:20 AM EST Office Visit [place] [address] [place] [address] Stefanie Avila PA-C [address] [place] [address] [place] [id number] Scheduled Orders Name Type Priority Associated Diagnoses Orde r Schedule URINALYSIS, REFLEX TO MICROSCOPIC Lab STAT One Time for 1 Occurrences starting 07/25/2023 until 07/25/2023 Health Maintenance Due Date Last Done Comments Hepatitis B (1 of 3 - 19+ 3-dose series) 2005 COVID-19 Vaccine ( - 2022-24 season) 2023 TSH 09/27/2023 09/26/2022, 08/26, 08/31/2020, Additional history exists Depression Screening 11/07/2023 11/06/2022 Pap Smear 05/07/2026 05/07/2023, 02/0 11/2018, 01/26/2015, Additional history exists Diabetes Screening 07/25/2026 07/25/2023, 0 07/25/2023, 07/24/2023, Additional history exists Cervical Cancer Screening 05/07/2028 HPV/Co-Test 05/07/2028 05/07/2023 DTaP,Tdap,and Td Vaccines (3 - Td or Tdap) 03/17/2029 03/17/2019, 11/21/2007 GARDASIL-HPV IMMUNIZATION SERIES Completed 01/14/2008, 09/16/2007, 07/16/2007 Influenza Vaccine (FLU shot) Completed , 04/12/2022, 03/22/2021, Additional history exists MENINGOCOCCAL (MENACTRA/MENVEO) Aged Out No longer eligible based on patient's age to complete this topic Pneumococcal Vaccine: Pediatrics (0 to 5 Years) and At-Risk Patients (6 to 64 Years) Aged Out No longer eligible based on patient's age to complete this topic documented as of this encounter Medical Devices Not on filedocumented as of this encounter Procedures Procedure Name Priority Date/Time Associated Diagnosis Comments US ABDOMEN LIMITED STAT 07/25/2023 1: 47 PM EST LACTATE STAT 07/25/2023 1:45 PM EST RESPIRATORY PATHOGEN PANEL, PCR STAT 07/25/2023 10:58 AM EST LACTATE WITH REFLEX IF ABNORMAL STAT 07/25/2023 10:09 AM EST BETA-HCG, QUANTITATIVE STAT 10:09 AM EST XR CHEST 1 VIEW STAT 07/25/2023 10:06 AM EST GLUCOSE METER, POINT OF CARE KIMBERLY 07/25/2023 8:42 AM EST DIFFERENTIAL, AUTOMATED STAT 07/25/2023 8:38 AM EST TROPONIN T, HIGH SENSITIVITY STAT 07/25/2023 8:38 AM EST BILIRUBIN, DIRECT Add-on 07/25/2023 8:3 8 AM EST COMPREHENSIVE METABOLIC PANEL STAT 07/25/2023 8:38 AM EST CBC STAT 07/25/2023 8:38 AM EST LIPASE Add-on 07/25/2023 8:38 AM EST CBC STAT 07/25/2023 8:38 AM EST documented in this encounter Results * US ABDOMEN LIMITED (07/25/2023 1:47 PM EST) Anatomical Region Laterality Modality Abdomen, Body Ultrasound 07/25/2023 1:04 PM EST Impressions 07/25/2023 2:03 PM EST IMPRESSION: 1.8 cm simple appearing cyst upper pole right kidney for which no follow-up is required. Otherwise unremarkable right upper quadrant ultrasound. THIS DOCUMENT HAS BEEN ELECTRONICALLY SIGNED BY CAT FINE MD Narrative 07/25/2023 2:03 PM EST PROCEDURE INFORMATION: Exam: US Abdomen, Limited; Right Upper Quadrant Exam date and time: 07/25/2023 1:04 PM Age: 38 years old Clinical indication: Nausea and vomiting; Additional info: Evaluate for cholelcystitis TECHNIQUE: Imaging protocol: Real time ultrasound of the abdomen with image documentation. Limited exam focused on the right upper quadrant. COMPARISON: CT ABD/PELVIS W IV CONTRAST - WO ORAL CONTRAST 06/28/2023 9:59 PM FINDINGS: Liver: Normal. No masses. Gallbladder: The gallbladder is seen and unremarkable. Biliary ducts: The common bile duct measures 3 mm. Pancreas: Visualized pancreas is unremarkable. Right kidney: The right kidney measures 11.6 x 4.9 x 3.6 cm. No evidence of hydronephrosis or stones. 1.8 cm simple appearing cyst upper pole right kidney. Procedure Note Cat Fine MD - 07/25/2023 PROCEDURE INFORMATION: Exam: US Abdomen, Limited; Right Upper Quadrant Exam date and time: 07/25/2023 1:04 PM Age: 38 years old Clinical indication: Nausea and vomiting; Additional info: Evaluate for cholelcystitis TECHNIQUE: Imaging protocol: Real time ultrasound of the abdomen with imagedocumentation. Limited exam focused on the right upper quadrant. COMPARISON: CT ABD/PELVIS W IV CONTRAST - WO ORAL CONTRAST 06/28/2023 9:59 PM FINDINGS: Liver: Normal. No masses. Gallbladder: The gallbladder is seen and unremarkable. Biliary ducts: The common bile duct measures 3 mm. Pancreas: Visualized pancreas is unremarkable. Right kidney: The right kidney measures 11.6 x 4.9 x 3.6 cm. No evidenceof hydronephrosis or stones. 1.8 cm simple appearing cyst upper pole rightkidney. IMPRESSION IMPRESSION: 1.8 cm simple appearing cyst upper pole right kidney for which nofollow-up is required. Otherwise unremarkable right upper quadrant ultrasound. THIS DOCUMENT HAS BEEN ELECTRONICALLY SIGNED BY CAT FINE MD Kevin Davidson RAD ULTRASOUND * LACTATE (07/25/2023 1:45 PM EST) Pathologist [facility] [place] Lactate 1.9 0.4 - 2.0 mmol/L 07/25/2023 2:[address] [facility] Blood Venous blood specimen / Unknown Venipuncture / Unknown 07/25/2023 1:45 PM EST 07/25/2023 1:51 PM EST [facility] S LABORATORY [address] [address] * RESPIRATORY PATHOGEN PANEL, PCR (07/25/2023 10:58 AM EST) Adenovirus by PCR Negative Negative 024 12:[address] [facility] Coronavirus 229E by PCR Negative Negative 07/25/2023 12:[address] [facility] Coronavirus HKU1 by PCR Negative Negative 07/25/2023 12:[address] [facility] Coronavirus NL63 by PCR Negative Negative 07/25/2023 12:[address] [facility] Coronavirus OC43 by PCR Negative Negative 07/25/2023 12:[address] [facility] Coronavirus SARS-CoV-2 by PCR Negative Negative 07/25/2023 12:[address] [facility] Human Metapneumovirus by PCR Negative Negative 07/25/2023 12:[address] [facility] Rhinovirus/Enterovi chelsi by PCR Negative Negative 07/25/2023 12:14 PM EST LABORATORY [facility] Influenza A Virus by PCR Negative Negative 07/25/2023 12:[address] [facility] Influenza B Virus by PCR Negative Negative 07/25/2023 12:[address] [facility] Parainfluenza Virus 1 by PCR Negative Negative 07/25/2023 12:[address] [facility] Parainfluenza Virus 2 by PCR Negative Negative 07/25/2023 12:[address] [facility] Parainfluenza Virus 3 by PCR Negative Negative 07/25/2023 12:[address] [facility] Parainfluenza Virus 4 by PCR Negative Negative 07/25/2023 12:[address] [facility] [place] Respiratory Syncytial Virus by PCR Negative Negative 07/25/2023 12:[address] [facility] Bordetella pertussis by PCR Negative Negative 07/25/2023 12:[address] [facility] Chlamydia pneumoniae by PCR Negative Negative 07/25/2023 12:[address] [facility] Mycoplasma pneumoniae by PCR Negative Negative 07/25/2023 12:[address] [facility] [place] Bordetella parapertussis by PCR Negative Negative 07/25/2023 12:[address] [facility] Comment: The primers that detect Rhinovirus may cross react with some Enterorviruses. The validation of bronchial specimens, tracheal aspirates, and throats for this assay was developed and performance characteristics determined by [employer] The validation of alternate specimen types has not been cleared or approved by the U.S. Food and Drug Administration (FDA). It has been determined that such clearance or approval is not necessary. Upper Respiratory Mid-turbinate nasal swab / Unknown Non-blood Collection / Unknown 07/25/2023 10:58 AM EST 07/25/2023 11:02 AM EST Kevin MORALES MICRO - GENERAL ORDERABLES Performing Organization Address [facility] Co de Phone Number LABORATORY [address] [address] * (ABNORMAL) LACTATE WITH REFLEX IF ABNORMAL (07/25/2023 10:09 AM EST) Pathologist [facility] [place] Lactate 4.3(HH) 0.4 - 2.0 mmol/L 07/25/2023 10:[address] [facility] [place] Blood Venous blood specimen / Unknown Venipuncture / Unknown 07/25/2023 10:09 AM EST 07/25/2023 10:12 AM EST Kevin Adams [facility] LAB BLOOD ORDERABLE S Performing Organization Address [facility] de Phone Number LABORATORY [address] [address] * BETA-HCG, QUANTITATIVE (07/25/2023 10:09 AM EST) [facility] Beta-HCG, Quantitative <0.1 <=1.0 mIU/mL 07/25/2023 10:[address] [facility] [place] Blood Venous blood specimen / Unknown Venipuncture / Unknown 07/25/2023 10:09 AM EST 07/25/2023 10:12 AM EST Narrative [facility]ATORY [facility] [place] - 07/25/2023 10:49 AM EST hCG can serve as a screening assay for . However, early may not give a positive hCG test result. In addition, some non- women may have a hCG result slightly higher than the reference limit. Careful interpretation of the hCG with clinical history is required to determine whether the patient may be . Kevin Adams [facility] LAB BLOOD ORDERABLE S Performing Organization Address [facility] Co de Phone Number LABORATORY [address] [address] * XR CHEST 1 VIEW (07/25/2023 10:06 AM EST) Anatomical Region Laterality Modality Chest Digital Radiogra phy 07/25/2023 9:56 AM EST Impressions 07/25/2023 10:29 AM EST IMPRESSION: 1. No evidence of active cardiopulmonary disease. 2. Small hiatal hernia. THIS DOCUMENT HAS BEEN ELECTRONICALLY SIGNED BY ANA ROSA PERRY MD Narrative 07/25/2023 10:29 AM EST PROCEDURE INFORMATION: Exam: XR Chest Exam date and time: 07/25/2023 9:56 AM Age: 38 years old Clinical indication: Other: Chills, SOB, vomiting; Additional info: SOB due to chills TECHNIQUE: Imaging protocol: Radiologic exam of the chest. Views: 1 view. COMPARISON: CT ABD/PELVIS W IV CONTRAST - WO ORAL CONTRAST 06/28/2023 9:59 PM FINDINGS: Lungs: Unremarkable. No consolidation. Pleural spaces: Unremarkable. No pleural effusion. No pneumothorax. Heart/Mediastinum: Small hiatal hernia. Bones/joints: Unremarkable. Procedure Note Ana Rosa Perry MD - 07/25/2023 PROCEDURE INFORMATION: Exam: XR Chest Exam date and time: 07/25/2023 9:56 AM Age: 38 years old Clinical indication: Other: Chills, SOB, vomiting; Additional info: SOBdue to chills TECHNIQUE: Imaging protocol: Radiologic exam of the chest. Views: 1 view. COMPARISON: CT ABD/PELVIS W IV CONTRAST - WO ORAL CONTRAST 06/28/2023 9:59 PM FINDINGS: Lungs: Unremarkable. No consolidation. Pleural spaces: Unremarkable. No pleural effusion. No pneumothorax. Heart/Mediastinum: Small hiatal hernia. Bones/joints: Unremarkable. IMPRESSION IMPRESSION: 1. No evidence of active cardiopulmonary disease. 2. Small hiatal hernia. THIS DOCUMENT HAS BEEN ELECTRONICALLY SIGNED BY ANA ROSA PERRY MD [facility] RADIOLOGY (RAD GENE RAL) * GLUCOSE METER, POINT OF CARE (07/25/2023 8:42 AM EST) Glucose Meter 115 70 - 120 mg/dL 07/25/2023 8:43 AM EST [facility] Blood Whole blood specimen / Unknown 07/25/2023 8:42 AM EST 07/25/2023 8:43 AM EST No Physician Data Unknown LAB POINT OF C ARE TEST DOCKED DEVICE UNSOLICITED RESULTS [facility] [address] [place] [address] * BILIRUBIN, DIRECT (07/25/2023 8:38 AM EST) Bilirubin, Direct 0.2 0.0 - 0.3 mg/dL 07/25/2023 10:[address] [facility] [place] Blood Venous blood specimen / Unknown Venipuncture / Unknown 07/25/2023 8:38 AM EST 07/25/2023 8:45 AM EST [facility] ORDER[facility] S Performing Organization Address City/[facility]/ZIP Co de Phone Number LABORATORY [facility] [place] [address] [place] [address] * (ABNORMAL) LIPASE (07/25/2023 8:38 AM EST) Lipase 78(H) 13 - 60 U/L 07/25/2023 10:[address] [facility] [place] Blood Venous blood specimen / Unknown Venipuncture / Unknown 07/25/2023 8:38 AM EST 07/25/2023 8:45 AM EST [facility] S Performing Organization Address City/[facility]/ZIP Co de Phone Number LABORATORY [address] [address] * (ABNORMAL) DIFFERENTIAL, AUTOMATED (07/25/2023 8:38 AM EST) WBC 12.72(H) 4.00 - 10.80 K/uL 07/25/2023 8:57 AM EST LABORATORY GL Neutrophils % 76.8(H) 40.0 - 75.0 % 07/25/2023 8:57 AM EST LABORATORY GL Lymphocytes % 15.7(L) 18.0 - 42.0 % 07/25/2023 8:57 AM EST LABORATORY GL Monocytes % 6.8 1.0 - 11.0 % 07/25/2023 8:57 AM EST LABORATORY [facility] Eosinophils % 0.1 0.0 - 6.0 % 07/25/2023 8:57 AM EST LABORATORY [facility] Basophils % 0.4 0.0 - 2.0 % 07/25/2023 8:57 AM EST LABORATORY GL Immature Granulocytes % 0.2 0.0 - 2.0 % 07/25/2023 8:57 AM EST LABORATORY GL Absolute Neutrophils 9.76(H) 1.80 - 7.70 K/uL 07/25/2023 8:57 AM EST LABORATORY GL Absolute Lymphocytes 2.00 1.00 - 4.80 K/ul 07/25/2023 8:57 AM EST LABORATORY GL Absolute Monocytes 0.87 0.00 - 1.10 K/uL 07/25/2023 8:57 AM EST LABORATORY GL Absolute Eosinophils 0.01 0.00 - 0.70 K/uL 07/25/2023 8:57 AM EST LABORATORY GL Absolute Basophils 0.05 0.00 - 0.20 K/uL 07/25/2023 8:57 AM EST LABORATORY GL Absolute Immature Granulocytes 0.03 0.00 - 0.20 K/uL 07/25/2023 8:57 AM EST LABORATORY GL Blood Venous blood specimen / Unknown Venipuncture / Unknown 07/25/2023 8:38 AM EST 07/25/2023 8:45 AM EST Kevin Davidson LAB BLOOD ORDERABLE S Performing Organization Address City/State/[facility] Co de Phone Number LABORATORY [address] [address] * (ABNORMAL) CBC (07/25/2023 8:38 AM EST) Pathologist [facility] [place] WBC 12.72(H) 4.00 - 10.80 K/uL 07/25/2023 8:57 AM EST LABORATORY [facility] RBC 5.49 3.85 - 5.15 M/uL 07/25/2023 8:57 AM EST LABORATORY GL HGB 16.1(H) 12.0 - 15.3 g/dL 07/25/2023 8:57 AM EST LABORATORY GL HCT 46.3(H) 36.0 - 45.2 % 07/25/2023 8:[address] [facility] MCV 84.3 81.5 - 97.5 fL 07/25/2023 8:[address] [facility] MCH 29.3 27.0 - 34.0 pg 07/25/2023 8:[address] [facility] MCHC 34.8 32.0 - 36.0 g/dL 07/25/2023 8:[address] [facility] RDW 12.2 11.5 - 15.5 % 07/25/2023 8:[address] [facility] PLT 385 140 - 400 K/uL 07/25/2023 8:[address] [facility] MPV 11.0 6.6 - 11.1 fL 07/25/2023 8:[address] [facility] nRBCs 0 <=0 /100 WBCs 07/25/2023 8:[address] [facility] [place] Blood Venous blood specimen / Unknown Venipuncture / Unknown 07/25/2023 8:38 AM EST 07/25/2023 8:45 AM EST Kevin Adams [facility] LAB BLOOD ORDERABLE S Performing Organization Address City/[facility]/ZIP Co de Phone Number LABORATORY [address] [address] * TROPONIN T, HIGH SENSITIVITY (07/25/2023 8:38 AM EST) Troponin T, High Sensitivity <6 <=14 ng/L 07/25/2023 9:[address] [facility] Blood Venous blood specimen / Unknown Venipuncture / Unknown 07/25/2023 8:38 AM EST 07/25/2023 8:45 AM EST Kevin [facility] LAB BLOOD ORDERABLE S Performing Organization Address City/[facility]/ZIP Co de Phone Number LABORATORY [address] [phone] * (ABNORMAL) COMPREHENSIVE METABOLIC PANEL (07/25/2023 8:38 AM EST) BUN 26(H) 6 - 20 mg/dL 07/25/2023 9:12 AM EST LABORATORY [facility] Creatinine 1.3(H) 0.5 - 1.0 mg/dL 07/25/2023 9:12 AM EST LABORATORY [facility] Estimated Glomerular Filtration Rate 55(L) >=60 mL/min 07/25/2023 9:12 AM EST LABORATORY [facility] Comment:eGFR is calculated b ased on the CKD-EPI 2020 equation Sodium 135 135 - 146 mmol/L 07/25/2023 9:12 AM EST LABORATORY [facility] Potassium 3.3(L) 3.5 - 5.1 mmol/L 07/25/2023 9:12 AM EST LABORATORY [facility] Chloride 100 98 - 107 mmol/L 07/25/2023 9:12 AM EST LABORATORY [facility] CO2 16(L) 22 - 32 mmol/L 07/25/2023 9:12 AM EST LABORATORY [facility] Anion Gap 19(H) 7 - 15 mmol/L 07/25/2023 9:12 AM EST LABORATORY [facility] Glucose 108 70 - 120 mg/dL 07/25/2023 9:12 AM EST LABORATORY [facility] Albumin 4.5 3.8 - 5.0 g/dL 07/25/2023 9:12 AM EST LABORATORY [facility] AST 23 10 - 35 U/L 07/25/2023 9:12 AM EST LABORATORY [facility] Alkaline Phosphatase 68 35 - 130 U/L 07/25/2023 9:12 AM EST LABORATORY [facility] Bilirubin, Total 1.5(H) <=1.2 mg/dL 07/25/2023 9:12 AM EST LABORATORY [facility] Calcium 9.8 8.4 - 10.2 mg/dL 07/25/2023 9:12 AM EST LABORATORY [facility] Protein 8.2 6.0 - 8.3 g/dL 07/25/2023 9:12 AM EST LABORATORY [facility] ALT 7(L) 10 - 35 U/L 07/25/2023 9:12 AM EST LABORATORY [facility] Blood Venous blood specimen / Unknown Venipuncture / Unknown 07/25/2023 8:38 AM EST 07/25/2023 8:45 AM EST Kevin Davidson DO LAB BLOOD ORDERABLE S LABORATORY [facility] [address] [place] [address] documented in this encounter Visit Diagnoses Diagnosis Nausea and vomiting, unspecified vomiting type- Primary Weakness Other malaise and fatigue Dehydration documented in this encounter Administered Medications Inactive Administered Medications - up to 3 most recent administrations Medication Order MAR Action Action Date Dose Rate Site diphenhydrAMINE (Benadryl) inj 25 mg 25 mg, Intravenous, ONCE, On Sun07/25/23 at 1230, For 1 dose Given 07/25/2023 11:56 AM EST 25 mg droPERidol (Inapsine) inj 1.25 mg 1.25 mg, IV Push, ONCE, On Sun07/25/23 at 1230, For 1 dose Given 07/25/2023 11:57 AM EST 1.25 mg metoclopramide (Reglan) inj 10 mg 10 mg, IV Push, ONCE, On Sun07/25/23 at 1030, For 1 dose Given 07/25/2023 9:56 AM EST 10 mg NSS 0.9% 1,000 mL bolus infusion Intravenous, at 1,000 mL/hr Administer over 60 Minutes, Wide open, This infusion may be completed in less than 1 hour, since it will be a wide open rate, ONCE, 1 dose, On Sun07/25/23 at 0900 New Bag 07/25/2023 8:38 AM EST 1,000 mL 1000 mL/hr NSS 0.9% 1,000 mL bolus infusion Peripheral IV, at 1,000 mL/hr Administer over 60 Minutes, Administer entire volume within 60 minutes or less. Warm fluids, ONCE, 1 dose, On Sun07/25/23 at 1030 New Bag 07/25/2023 9:56 AM EST 1,000 mL 1000 mL/hr NSS 0.9% 500 mL bolus infusion Peripheral IV, at 500 mL/hr Administer over 60 Minutes, Administer entire volume within 60 minutes or less., ONCE, 1 dose, On Sun07/25/23 at 1230 New Bag 07/25/2023 12:05 PM EST 500 mL 500 mL/hr ondansetron (Zofran) inj 4 mg 4 mg, IV Push, ONCE, On Sun07/25/23 at 0900, For 1 dose Given 07/25/2023 8:37 AM EST 4 mg potassium chloride 10 mEq in 100 mL ivpb LOCKED DOSE 10 mEq, Peripheral IV, Q1H, 2 doses, First dose on Sun07/25/23 at 1030, Last dose on Sun07/25/23 at 1200, Administer over 60 Minutes, Standard infusion duration is 60 minutes. Restarted 07/25/2023 12:03 PM EST 10 mEq/hr 100 mL/hr New Bag 07/25/2023 11:02 AM EST 10 mEq 100 mL/hr New Bag 07/25/2023 10:00 AM EST 10 mEq 100 mL/hr potassium chloride ER tab 40 mEq 40 mEq, Oral, ONCE, On Sun07/25/23 at 1230, For 1 dose, This med should NOT be Crushed or Chewed Given 07/25/2023 2:50 PM EST 40 mEq trimethobenzamide (Tigan) inj 100 mg 100 mg, Intramuscular, ONCE, On Sun07/25/23 at 1200, For 1 dose Given 07/25/2023 11:23 AM EST 100 mg Deltoid Right Upper documented in this encounter Active and Recently Administered Medications Times are shown in EST. Scheduled Medication Order 07/23/2023 07/24/2023 07/25/2023 diphenhydrAMINE (Benadryl) inj 25 mg (COMPLETED) 25 mg, Intravenous, ONCE, On Sun07/25/23 at 1230, For 1 dose 1156 (Given - Provid er: Ritesh Santamaria RN) droPERidol (Inapsine) inj 1.25 mg (COMPLETED) 1.25 mg, IV Push, ONCE, On Sun07/25/23 at 1230, For 1 dose 1157 (Given - Provid er: Ritesh Santamaria RN) metoclopramide (Reglan) inj 10 mg (COMPLETED) 10 mg, IV Push, ONCE, On Sun07/25/23 at 1030, For 1 dose 0956 (Given - Provid er: Ritesh Santamaria RN) NSS 0.9% 1,000 mL bolus infusion (COMPLETED) Intravenous, at 1,000 mL/hr Administer over 60 Minutes, Wide open, This infusion may be completed in less than 1 hour, since it will be a wide open rate, ONCE, 1 dose, On Sun07/25/23 at 0900 0838 (New Bag - Prov ider: Jo Ann Givens RN)0952 (Stopped - Provider: Ritesh Santamaria RN) NSS 0.9% 1,000 mL bolus infusion (COMPLETED) Peripheral IV, at 1,000 mL/hr Administer over 60 Minutes, Administer entire volume within 60 minutes or less. Warm fluids, ONCE, 1 dose, On Sun07/25/23 at 1030 0956 (New Bag - Prov ider: Ritesh Santamaria RN)1208 (Stopped - Provider: Ritesh Santamaria RN) NSS 0.9% 500 mL bolus infusion (COMPLETED) Peripheral IV, at 500 mL/hr Administer over 60 Minutes, Administer entire volume within 60 minutes or less., ONCE, 1 dose, On Sun07/25/23 at 1230 1205 (New Bag - Prov ider: Ritesh Santamaria RN)1309 (Stopped - Provider: Ritesh Santamaria RN) ondansetron (Zofran) inj 4 mg (COMPLETED) 4 mg, IV Push, ONCE, On Sun07/25/23 at 0900, For 1 dose 0837 (Given - Provid er: Jo Ann Givens RN) potassium chloride 10 mEq in 100 mL ivpb LOCKED DOSE (COMPLETED) 10 mEq, Peripheral IV, Q1H, 2 doses, First dose on Sun07/25/23 at 1030, Last dose on Sun07/25/23 at 1200, Administer over 60 Minutes, Standard infusion duration is 60 minutes. 1000 (New Bag - Prov ider: Ritesh Santamaria RN)1059 (Paused - Provider: Ritesh Santamaria RN)1102 (New Bag - Provider: Ritesh Santamaria RN)1159 (Paused - Provider: Ritesh Santamaria RN)1203 (Restarted - Provider: Ritesh Santamaria RN)1209 (Stopped - Provider: Ritesh Santamaria RN) potassium chloride ER tab 40 mEq (COMPLETED) 40 mEq, Oral, ONCE, On Sun07/25/23 at 1230, For 1 dose, This med should NOT be Crushed or Chewed 1450 (Given - Provid er: Ritesh Santamaria RN) trimethobenzamide (Tigan) inj 100 mg (COMPLETED) 100 mg, Intramuscular, ONCE, On Sun07/25/23 at 1200, For 1 dose 1123 (Given - Provid er: Ritesh Santamaria RN) documented in this encounter Additional Health Concerns Infection Onset Date Last Indicated Resolved Time Respiratory Rule-Out 07/25/2023 07/25/2023 024 12:14 PM EST COVID-19 Rule-Out 07/25/2023 07/25/2023 07/25/2023 12:14 PM EST documented as of this encounter Care Teams Rail Equipment Operator Relationship Specialty Start Date End Date Wei Laughlin PA-C [address] [phone] PCP - General Physician Jewel Bearing Broacher 03/07/16 documented as of this encounter
--- OUTSIDE RECORDS SUMMARY | 2023-07-29 04:49 | External Medical Summary ---
Author Name Unknown Address Unknown Organization [id number]:LABORATORY [facility] - [address] [place] [address] Laboratory Report Ordering Provider Test Date Status KATE HARO 07/24/2023 11:48:38 Final Deficient: <20 ng/mL
Ins ufficient: 20-29 ng/mL
Recommended/Optimum:30-50 ng/mL

Vitamin D intoxication is rare. If suspicious of Vitamin D toxicity, evaluation of serum Calcium and PTH is recommended. Observation Date Value Abnormality Reference (Units ) Status 25-OH Vitamin D total 07/24/2023 11:48:38 45 >19 (ng/mL) Final Performing Location LABORATORY C - [address] [place] [address]
--- OUTSIDE RECORDS SUMMARY | 2023-07-29 04:49 | External Medical Summary ---
Author Name Unknown Address Unknown Organization [id number]:LABORATORY [facility] [address] - [address] [place] [address] Laboratory Report Ordering Provider Test Date Status KAET HARO 07/24/2023 11:48:38 Final Observation Date Value Abnormality Reference (Units ) Status WBC, Total 07/24/2023 11:48:38 12.24 Above high normal 4 .00-10.80 (K/uL) Final RBC 07/24/2023 11:48:38 5.14 3.85-5.15 (M/uL) Final Hemoglobin 07/24/2023 11:48:38 15.1 12.0-15.3 (g/dL) Final HCT 07/24/2023 11:48:38 45.0 36.0-45.2 (%) Final MCV 07/24/2023 11:48:38 87.5 81.5-97.5 (fL) Final MCH 07/24/2023 11:48:38 29.4 27.0-34.0 (pg) Final MCHC 07/24/2023 11:48:38 33.6 32.0-36.0 (g/dL) Final RDW 07/24/2023 11:48:38 13.0 11.5-15.5 (%) Final Platelets 07/24/2023 11:48:38 361 140-400 (K /uL) Final MPV 07/24/2023 11:48:38 11.2 6.6-11.1 ( fL) Final Performing Location LABORATORY [facility] [place] [address] - [address] [place] [address]
--- OUTSIDE RECORDS SUMMARY | 2023-07-29 04:49 | External Medical Summary ---
Author Name Unknown Address Unknown Organization [id number]:LABORATORY [facility] - [address] [place] [address] Laboratory Report Ordering Provider Test Date Status [place] 07/25/2023 10:09:00 Final hCG can serve as a screening assay for . However, early may not give a positive hCG test result. In addition, some non- women may have a hCG result slightly higher than the reference limit. Careful interpretation of the hCG with clinical history is required to determine whether the patient may be . Observation Date Value Abnormality Reference (Units ) Status Choriogonadotropin.intact +Beta subunit [Units/volume] in Serum or Plasma 07/25/2023 10:09:00 <0.1 <=1.0 (mIU/mL) Final Performing Location LABORATORY [facility] - [address] [place] [address]
--- OUTSIDE RECORDS SUMMARY | 2023-07-29 04:49 | External Medical Summary | Summary of Care ---
Author Name Unknown Organization [facility] Address [address] [address] Phone [phone] Care Team Providers Care Vp Business Development Name Role Phone Wei Laughlin PA-C Primary Care Provider [phone] Reason for Referral * Evaluate & Treat - Unlimited Visits (Within 10 days (routine)) - Pending Review Specialty Diagnoses / Procedures Referred By Yuliana t Referred To Contact Gastroenterology Diagnoses Nausea and vomiting, unspecified vomiting type Wei Lee PA-C [address] [place] [address] Referral ID Status Reason Start Date Expiration Date Visits Requested Visits Authorized [id number] Pending Review Specialty Services Required [phone] Question Answer Referral Priority Within 10 days (routine) Where should this appointment be scheduled? [facility] For what condition is the patient being referred? All Gastro Conditions Comments Discharge Order Reason for Visit * Reason Comments Vomiting * Auth/Cert Specialty Diagnoses / Procedures Referred By Contac t Referred To Contact Referral ID Status Reason Start Date Expiration Date Visits Re quested Visits Authorized [id number] Encounter Details Date Type Department Care Team (Late st Contact Info) Description 06/28/2023 8:23 PM EST - 2023 12:46 AM EST Emergency [facility] [address] [facility] [place] [address] Ricky Stubbs [facility] [address] [facility] [address] Nausea and vomiting, unspecified vomiting type (Primary Dx) Discharge Disposition: Home - Self Care Allergies No known active allergiesdocumented as of this encounter (statuses as of 2023) Medications Medication Sig Dispensed Refills Start Date End Date Status Clindamycin Phosphate 1 % External Lotion Apply to face every morning 180 mL 3 09/09/2021 Active valACYclovir HCl 500 MG Oral Tablet (Valtrex) TAKE 1 TAB BY MOUTH DAILY. UNTIL FINISHED INDICATIONS: NEEDED FOR COLD SORES. 30 Tablet 5 10/12/2021 Active Tretinoin 0.025 % External CreamIndications:Ac ne vulgaris Apply to clean and moisturized face every other night x 2-3 weeks and then increase to nightly as tolerated; apply to dry skin 135 g 3 04/19/2022 Active tiZANidine HCl 4 MG Oral Tablet (Zanaflex)Indicatio ns:Myofascial pain syndrome, cervical Take 1 Tablet by mouth every 8 hours as needed for Muscle spasms. 90 Tablet 3 09/18/2022 Active Gabapentin 300 MG Oral Capsule (Neurontin) Take by mouth 1 Capsule in by mouth 2 times per day 180 Capsule 3 10/03/2022 Active Omeprazole 40 MG Oral Capsule Delayed Release (PriLOSEC)Indicatio ns:Gastroesophageal reflux disease without esophagitis TAKE 1 CAPSULE BY MOUTH IN THE MORNING AND 1 CAPSULE BEFORE BEDTIME 180 Capsule 3 10/03/2022 Active FLUoxetine HCl 20 MG Oral Capsule (PROzac)Indications :Depression with anxiety Take 1 Capsule by mouth in the morning. 90 Capsule 3 10/03/2022 Active Levothyroxine Sodium 50 MCG Oral Tablet (Levoxyl) Take 1 Tablet by mouth in the morning. 90 Tablet 3 10/03/2022 Active Spironolactone 50 MG Oral Tablet (Aldactone)Indicati ons:Acne vulgaris Take 1 Tablet by mouth in the morning. 90 Tablet 1 10/30/2022 Active Syringe Luer Lock 25G X 5/8" 3 MLIndications:Intes tinal postoperative nonabsorption For vitamin B12 injections 50 Each 0 01/16/2023 Active NovoFine 32G X 6 MM (NOVOFINE 32G PEN NEEDLE)Indications: Obesity, Class II, BMI 35-39.9, isolated Use with Saxenda pen 50 Each 2 01/17/2023 Active Cyanocobalamin 1000 MCG/ML Injection Solution (Cyanocobalamin)Ind ications:Vitamin B12 deficiency (dietary) anemia Inject 1,000 mcg into a large muscle every 30 days. 1 mL 11 01/22/2023 Active traMADol HCl 50 MG Oral Tablet (Ultram)Indications :Kidney stone Take 1 Tablet by mouth every 8 hours as needed for Pain, Severe. 15 Tablet 0 02/28/2023 Active Phenazopyridine HCl 200 MG Oral Tablet (Pyridium)Indicatio ns:Acute cystitis with hematuria Take 1 Tablet by mouth 3 times a day as needed for Pain, Moderate. After meals for pain with urination 10 Tablet 0 03/08/2023 Active Norethindrone 0.35 MG Oral TabletIndications:M enorrhagia with irregular cycle,Primary dysmenorrhea,Encoun ter for surveillance of contraceptive pills Take 1 [...] for Nausea. 12 Tablet 0 2023 Active Ondansetron 4 MG Oral Tablet Disintegrating (Zofran) Place 1 Tablet on tongue every 8 hours as needed for Nausea. dissolve on tongue. 20 Tablet 0 02/14/2023 06/29/19 24 Discontinu ed(Medicat ion/Dose Changed) documented as of this encounter (statuses as of 2023) Active Problems Problem Noted Date Diagnosed Date [...] and get opinion from Plastic Surgeon Jamie Reynodls MD 01/12/2016 11:26 PM Family history of breast cancer 01/09/2012 Family history of bladder cancer 01/09/2012 documented as of this encounter (statuses as of 2023) Resolved Problems Problem Noted Date Diagnosed Date [...] as of this encounter (statuses as of 2023) Immunizations Name Administration Dates Next Due H1N1 [...] Sign Reading Time Taken Comments Blood Pressure 129/76 2023 12:00 AM EST Pulse 73 2023 12:00 AM EST Temperature 36.3 C (97.3 F) 06/28/2023 8:30 PM ES T Respiratory Rate 18 2023 12:00 AM EST Oxygen Saturation 100% 06/28/2023 8:21 PM EST Inhaled Oxygen Concentration - - Weight 90.7 kg (200 lb) 06/28/2023 8:21 PM EST Height 165.1 cm (5' 5") 06/28/2023 8:21 PM EST Body Mass Index 33.28 06/28/2023 8:21 PM EST documented in this encounter Discharge Instructions * Discharge Instructions* Wei Lee PA-C - 2023 12:18 AM EST Patient was seen on 06/28/2023 for nausea and vomiting. At this time no acute cause for her nausea and vomiting could be identified. Patient was given nausea and pain medication in the emergency department which did improve her symptoms. Patient should monitor symptoms and return back to the ER if they are not managed at home, worsen. Patient was given to go Zofran in the emergency department. Prescription sent to her pharmacy for Zofran as well. Patient uses as needed for any nausea at home. Encouraged patient to eat soft foods such as bananas, rice, applesauce, pudding, chicken broth, soups, mashed potatoes into her symptoms improved. Patient should avoid spicy foods, coffee, smoking. GI referral was placed for the patient. Patient should follow up with him on outpatient basis. documented in this encounter ED Notes * Ricky Stubbs MD - 06/28/2023 8:28 PM EST HISTORY OF PRESENT ILLNESS Trisha Arias is a 37 year old female who presents to the ED for evaluation of Vomiting. The patient was seen at 06/28/232025. Patient is a 37-year-old female who is currently menstruating with a past medical history of sleeve gastrectomy, GERD, COPD, iron deficiency anemia presenting today with vomiting. Patient reports she ate a hoagie around 4:00 p.m. today and then at 5:30 p.m. she began tofeel nauseous. She states that she has been vomiting consistently since 5:30 p.m. this evening. Shestates that she was visiting friends in [place] and has been in the car for the last 2 hours. She denies any blood in the vomit. She states that no one else around her who ate similar food felt nauseous or had episodes of vomiting. She states that yesterday evening she did have 1 episode of right flank pain which went away within minutes. She states that she does have a history of kidney stones and states that she has had similar symptoms to what she has now then. She denies trying anything forher symptoms.. Patient denies any chest pain, shortness of breath, abdominal pain, diarrhea, constip ation, urinary symptoms such as urinary frequency, pain with urination, blood in the urine. She denies any vaginal bleeding, vaginal discharge, vaginal orders. Vomiting Review of Systems Gastrointestinal: Positive for vomiting. The patient's allergies, past history, and medications were reviewed. PHYSICAL EXAM Initial Vitals (see all): BP 132/86 | Pulse 85 | Resp 18 | Temp 97.3 | O2 100 %Weight 90.72 kg | Height 165.1 cm | BMI 33.28 kg/m2 Initial Pain Assessment (see all): 0 (no pain)/10 ([facility] Adult Scale 0-10) Physical Exam Vitals reviewed. Constitutional: General: She is not in acute distress. Appearance: Normal appearance. She is diaphoretic. She is not ill-appearing or toxic-appearing. HENT: Head: Normocephalic and atraumatic. Mouth/Throat: Pharynx: Oropharynx is clear. No oropharyngeal exudate or posterior oropharyngeal erythema. Eyes: Extraocular Movements: Extraocular movements intact. Conjunctiva/sclera: Conjunctivae normal. Pupils: Pupils are equal, round, and reactive to light. Cardiovascular: Rate and Rhythm: Normal rate and regular rhythm. Heart sounds: Normal heart sounds. Pulmonary: Effort: Pulmonary effort is normal. No respiratory distress. Breath sounds: Normal breath sounds. No wheezing, rhonchi or rales. Abdominal: General: Bowel sounds are normal. Palpations: Abdomen is soft. Tenderness: There is no abdominal tenderness. There is no right CVA tenderness or left CVA tenderness. Musculoskeletal: General: No tenderness. Normal range of motion. Cervical back: Normal range of motion. No rigidity. Right lower leg: No edema. Left lower leg: No edema. Lymphadenopathy: Cervical: No cervical adenopathy. Skin: General: Skin is warm. Capillary Refill: Capillary refill takes less than 2 seconds. Coloration: Skin is pale. Skin is not jaundiced. Findings: No erythema or rash. Neurological: General: No focal deficit present. Mental Status: She is alert and oriented to person, place, and time. Sensory: No sensory deficit. Motor: No weakness. Psychiatric: Mood and Affect: Mood normal. Behavior: Behavior normal. PROCEDURES AND TREATMENTS ED Orders | ED Results MEDICAL DECISION MAKING Nursing notes and vital signs were reviewed. ED Course as of 06/29/23 0055 Noris Jun 28, 20232052 CBC with WBC Differential(!) New leukocytosis [BK] 2052 Was alerted by the nursing staff with the patient did not have any relief of her nausea with Zofran. I will put an order in for Compazine at this time [BK] 2129 Lactate(!!): 5.1 [BK] 2130 Procalcitonin [BK] 2130 Beta-hCG, Quantitative [BK] 213 Lipase(!): 102 [BK] 2155 Respiratory Pathogen Panel, PCR [BK] 2214 Upon re-evaluation of the patient, patient reports her nausea has somewhat improved. She stillcontinues to deny any abdominal pain. She did finish 1 L bolus normal saline. I will order another bolus due to elevated lactate [BK] 2243 CT Abd/Pelvis with IV contrast - without oral contrast IMPRESSION: 1. No hydronephrosis .There is no evidence of renal or ureteral calcifications. 2. Nonobstructive bowel gas pattern 3. Stable postoperative changes of the epigastric region. 4. Overall nonobstructive bowel gas pattern. 5. Bilateral ovarian cyst, if further imaging required consider ultrasound [BK] 2310 Nursing staff alerted me that the patient ran twice for concerns for continual nausea. For this reason, we will try droperidol [BK] 2315 Urinalysis, Reflex to Culture(!) [BK] 2316 Upon change of shift, patient's care has been transitioned to Wei Lee who has been updated on the patient's case. [BK] 2327 Acute onset of nausea, vomiting today while eating a hoagie. Patient has associated chills, night sweats. 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 EGD done 2 years ago to hiatal hernia. No abdominal pain, tender to palpation epigastric area. No guarding, rigidity, rebound tenderness. No active vomiting but nausea is still present. Given patient's droperidol, repeat lactate pending. [AL] 2347 Repeat lactate pending [MM] SunJun 29, 2023 0014 Lactate(!): 3.7 [MM] ED Course User Index [AL] Wei Lee PA-C [BK] Sofia Hernandez PA-C [MM] Ricky Stubbs MD Differential Diagnoses Based on my history, physical exam, and evaluation, the differential includes, but is not limited, to the following diagnoses: Viral syndrome, viral gastroenteritis, food-borne illness. Patient is a 37 year old female presenting with vomiting that began at 5:30 p.m. this evening. Labsreviewed, and significant for elevated lactate, elevated lipase, leukocytosis, decreased phosphorus, slightly hypokalemic. Neck negative respiratory panel. Urinalysis shows bacteriuria but no nitrates, esterase, pyuria.. CT of the abdomen and pelvis was ordered due to concern for possible nephrolithiasis or evidence of pancreatitis, which demonstrated bilateral ovarian cysts, nonobstructive bowelgas pattern, no hydronephrosis or evidence of renal or ureteral calcifications as interpreted by myself/Radiology. IV Zofran was given for nausea which did not improve her nausea. She continues to dry heave. For this reason I gave Compazine, Benadryl which did not improve her nausea. For this reason I trialed Tigan for her nausea. I allowed about an hour to let this medication try to work and shecontinued to report nausea and dry heaving. I discussed this with Dr. Stubbs who is comfortable trialing droperidol. She received 2 L of IV fluids and I am awaiting for that to finish and then we willrepeat lactate. Upon change of shift, patient's care has been transitioned to Wei Lee PA-C. He has been made aware of the patient's case. Patient was signed out to me by Sofia Hernandez. My assessment/physical exam described above. Patient was given droperidol and another L of normal saline. Repeat lactate is downtrending. Patient's nausea and pain did improve after administration of droperidol. At this time she is agreeing for outpatient management and she will return back to the ER if her nausea returns. Patient was given to goZofran in the emergency department in addition to a prescription to her pharmacy. Patient was able to eat crackers and drink water in the emergency department before leaving GI referral placed for the patient due to her history of hiatal hernia and gastric bypass. Patient will follow up with them on an outpatient basis. Patient is agreeing with the plan, I answered all questions, stable be discharged home at this time. Amount and/or Complexity of Data Reviewed Labs: ordered. Decision-making details documented in ED Course. Radiology: ordered. Decision-making details documented in ED Course. Risk Prescription drug management. Clinical Impressions Nausea and vomiting, unspecified vomiting type Disposition Discharged. The patient's condition at disposition was: stable. Discharge Medications Disp Refills Start End Ondansetron 4 MG Oral Tablet Disintegrating (Zofran) 2 Tablet 0 2023 -- Sig - Route: Place 1 Tablet on tongue every 8 hours as needed for Nausea. dissolve on tongue. - On Tongue Class: Site Administration Renewals Renewal requests to authorizing provider (Wei Lee PA-C) <b>prohibited</b> Ondansetron HCl 4 MG Oral Tablet 12 Tablet 0 2023 -- Sig - Route: Take 1 Tablet by mouth every 8 hours as needed for Nausea. - Oral Class: ePrescribing Renewals Renewal requests to authorizing provider (Wei Lee PA-C) <b>prohibited</b> I have personally dispensed to go medications to the patient for home use. These to go mediations are listed above with a class of site administration. These medications were labeled with the patient's name and instructions for use. Ricky Stubbs was the attending physician who supervised the care of this patient. Sofia Hernandez PA-C ATTENDING ATTESTATION I was readily available and reviewed care of this patient. I was available for immediate [id number] consultation and assistance. I have reviewed the care of the patient with the provider listed above. * Yasmeen Perez RN - 06/28/2023 8:18 PM EST Pt states that she ate at 1600 and at 1730 developed n/v. Denies diarrhea. States that she ate a hoagie at a restaurant, no one else that was with her got sick. documented in this encounter Miscellaneous Notes * ED Pocket Secretary Assembler Note - Elisabet Peterson RN - 2023 12:44 AM EST Reviewed patient discharge instructions with patient who verbalized understanding. Patient denies any needs at this time. Ambulated to the exit without difficulty. * Pt Handout (on AVS) - Wei Lee PA-C - 2023 12:25 AM EST [id number] Vomiting (Adult) Vomiting is a common symptom that may be due to different causes. These include gastroenteritis (stomach flu), food poisoning, and gastritis. Other more serious causes of vomiting may be hard to diagnose early in the illness. That's why it's important to watch for the warning signs listed below. The main danger from repeated vomiting is dehydration. This is because of the loss of water and minerals from the body. When this occurs, your body fluids must be replaced. Home care If symptoms are severe, rest at home for the next 24 hours. Because your symptoms may be from an infection, wash your hands often and well. Use soap and clean, running water or alcohol-based sorter operator to keep from spreading the infection to others. Wash your hands for at least 20 seconds. Scrub all surfaces of your hands, including between your fingers and under your fingernails each time you wash. Humming the Happy Birthday song twice whileyou wash is an easy way to make sure you've washed for 20 seconds. Wash your hands after using the toilet, before and after preparing food, before eating food, after changing a diaper, cleaning a wound, caring for a sick person, and blowing your nose, coughing, or sneezing. You should also wash your hands after caring for someone who is sick, touching pet food,or treats, and touching an animal, or animal waste. You may use acetaminophen or NSAID medicines such as ibuprofen or naproxen to control fever, unless another medicine was prescribed. Talk with your provider before using these medicines if you have chronic liver or kidney disease or ever had a stomach ulcer or digestive bleeding. Never give aspirin to anyone younger than 18 who is ill with a fever. It may cause severe liver damage. Don't use NS AID medicines if you are already taking one for another condition such as arthritis or take aspirinfor heart disease or after a stroke. Don't use tobacco or drink alcohol. These may make your symptoms worse. If you have trouble stopping either substance, ask your provider for treatment resources. If medicines for vomiting were prescribed, take as directed. Tell your provider if they don't work within the expected time period. Once vomiting stops, then follow these guidelines: During the first 12 to 24 hours, follow the diet below: Fruit juices. Apple, grape juice, clear fruit drinks, and electrolyte replacement drinks. Beverages. Water, soft drinks without caffeine; mineral water (plain or flavored), and decaffeinated tea and coffee. Soups. Clear broth and bouillon. Desserts. Plain gelatin, ice pops, and fruit juice bars. As you feel better, you may add 6 to 8 ounces of yogurt per day. During the next 24 hours you may add the following to the above: Hot cereal, plain toast, bread, rolls, and crackers Plain noodles, rice, mashed potatoes, and chicken noodle or rice soup Unsweetened canned fruit such as applesauce, bananas. Don't have pineapple or citrus. Limit caffeine and chocolate. No spices or seasonings except salt. During the next 24 hours: Gradually go back to your normal diet, as you feel better and your symptoms lessen. Follow-up care Follow up with your healthcare provider as advised. When to seek medical advice Call your healthcare provider right away if any of these occur: Constant right-sided lower belly pain or increasing general belly pain Continued vomiting (unable to keep liquids down) for 24 hours Vomiting blood or what looks like coffee grounds Swollen belly Frequent diarrhea (more than 5 times a day), or blood (red or black color) or mucus in diarrhea Peeing less than usual or extreme thirst Weakness, dizziness, or fainting Unusually drowsy or confused Fever of 100.4F (38C) oral or higher, or as directed by your provider Yellow color of the eyes or skin Other symptoms get worse or you have new symptoms Last Reviewed Date: 03/28/202119994756-4626 [employer]. All rights reserved. This information is not intended as a substitute for professional medical care. Always follow your healthcare professional's instructions. * ED Pocket Secretary Assembler Note - Jocelin Flanagan RN - 06/28/2023 9:09 PM EST Pt states that she ate around 1600. Around 1700 she started vomiting. Pt reports that she has not stopped vomiting since. Pt states that she also feels very cold. Pt is pale. Respirations even and unlabored. Abdomen is soft, non-tender, bowel sounds hyperactive in all quadrants. Skin is cool and wet to touch. 2052: Pt continues to vomit. ANGY Black made aware. New orders placed. documented in this encounter Plan of Treatment Upcoming Encounters Date Type Department Care Team (Late st Contact Info) Description 07/10/2023 3:15 PM EST Appointment Radiology, [place] [address] [place] [id number] 07/24/2023 11:00 AM EST Office Visit Nutrition & Weight Management, [facility] [address] [facility] [place] [address] Rachele Mike PA-C [address] [facility] [place] [address] 10/09/2023 4:20 PM EDT Office Visit [place] [address] [place] [phone] Wei Laughlin PA-C [address] [place] [address] 11/13/2023 1:10 PM EDT Office Visit Dermatology [facility] [address] [place] [address] Ruth Ann Teran PA-C [address] [place] [address] 05/08/2024 9:20 AM EST Office Visit [place] [address] [address] [place] [address] Stefanie Avila PA-C [facility] [address] [place] [address] Pending Results Name Type Priority Associated Diagnoses Date /Time CULTURE, URINE, QUANTITATIVE Lab STAT 06/28/2023 10:30 PM EST Scheduled Orders Name Type Priority Associated Diagnoses Orde r Schedule CULTURE, URINE, QUANTITATIVE Lab STAT One Time for 1 Occurrences starting 06/28/2023 until 06/28/2023 Scheduled Referrals Name Type Priority Associated Diagnoses Order Schedule ADULT GASTROENTEROLOGY REFERRAL OP Referral Within 10 days (routine) Nausea and vomiting, unspecified vomiting type Ordered: 2023 Health Maintenance Due Date Last Done Comments Hepatitis B (1 of 3 - 3-dose series) 1985 COVID-19 Vaccine (#1) 1985 TSH 09/27/2023 09/26/2022, 08/26, 08/31/2020, Additional history exists Depression Screening 11/07/2023 11/06/2022 Pap Smear 05/07/2026 05/07/2023, 11/2018, 01/26/2015, Additional history exists Diabetes Screening 06/28/2026 06/28/2023, 0 01/16/2023, 01/16/2023, Additional history exists Cervical Cancer Screening 05/07/2028 [...] Procedure Name Priority Date/Time Associated Diagnosis Comments LACTATE STAT 06/28/2023 11:46 PM EST URINALYSIS, REFLEX TO CULTURE STAT 06/28/2023 10:30 PM EST URINALYSIS, REFLEX TO CULTURE (CUP ONLY) STAT 06/28/2023 10:30 PM EST URINALYSIS, REFLEX TO CULTURE (NOT FOR NEUTROPENIC PATIENTS) STAT 06/28/2023 10:[address] ABD/PELVIS W IV CONTRAST - WO ORAL CONTRAST STAT 06/28/2023 10:08 PM EST RESPIRATORY PATHOGEN PANEL, PCR STAT 06/28/2023 8:52 PM EST DIFFERENTIAL, AUTOMATED STAT 06/28/2023 8:45 PM EST PROCALCITONIN STAT 06/28/2023 8:45 PM EST BETA-HCG, QUANTITATIVE STAT 8:45 PM EST COMPREHENSIVE METABOLIC PANEL STAT 06/28/2023 8:45 PM EST CBC STAT 06/28/2023 8:45 PM EST PHOSPHORUS STAT 06/28/2023 8:45 PM EST LIPASE STAT 06/28/2023 8:45 PM EST LACTATE STAT 06/28/2023 8:45 PM EST CBC STAT 06/28/2023 8:45 PM EST MAGNESIUM STAT 06/28/2023 8:45 PM EST documented in this encounter Results * (ABNORMAL) LACTATE (06/28/2023 11:46 PM EST) Lactate 3.7(H) 0.4 - 2.0 mmol/L 2023 12:05 AM EST LABORATORY [facility] Blood Venous blood specimen / Unknown Venipuncture / Unknown 06/28/2023 11:46 PM EST 06/28/2023 11:49 PM EST Wei Lee PA-C LAB BLOOD ORDERA [facility] [address] [place] [address] * (ABNORMAL) URINALYSIS, REFLEX TO CULTURE (06/28/2023 10:30 PM EST) Color, Urine Yellow Light Yellow, Yellow, Dark Yellow 06/28/2023 11:00 PM EST LABORATORY [facility] Clarity, Urine Clear Clear 06/28/2023 11:00 PM EST LABORATORY [facility] Glucose, Urine Negative Negative mg/dL 06/28/2023 11:00 PM EST LABORATORY GL Bilirubin, Urine Negative Negative 06/28/2023 11:00 PM EST LABORATORY GL Ketone, Urine >=80(A) Negative mg/dL 06/28/2023 11:00 PM EST LABORATORY GL Specific [place], Urine 1.058(H) 1.003 - 1.030 06/28/2023 11:00 PM EST LABORATORY GL Blood, Urine Large(A) Negative 06/28/2023 11:00 PM EST LABORATORY GL pH, Urine 6.0 5.0 - 7.5 Units 06/28/2023 11:00 PM EST LABORATORY GL Protein, Urine Trace(A) Negative mg/dL 06/28/2023 11:00 PM EST LABORATORY GL Urobilinogen, Urine 0.2 0.2, 1.0 mg/dL 06/28/2023 11:00 PM EST LABORATORY GL Nitrite, Urine Negative Negative 06/28/2023 11:00 PM EST LABORATORY GL Esterase, Urine Negative Negative 06/28/2023 11:00 PM EST LABORATORY GL RBC, Urine 20-29(A) 0 - 2 /HPF 06/28/2023 11:00 PM EST LABORATORY GL WBC, Urine 0-2 0 - 2 /HPF 06/28/2023 11:00 PM EST LABORATORY GL Bacteria, Urine 26-50(A) 0 - 25 /HPF 06/28/2023 11:00 PM EST LABORATORY GL Squamous Epithelial Cells, Urine Many(A) None /HPF 06/28/2023 11:00 PM EST LABORATORY GL Culture, Urine 06/28/2023 11:00 PM EST LABORATORY [facility] Comment:Quantitative urine c ulture to be performed Urine Urine specimen obtained by clean catch procedure / Unknown Non-blood Collection / Unknown 06/28/2023 10:30 PM EST 06/28/2023 10:36 PM EST Sofia Hernandez PA-C LAB URINE O RDERABLES Performing Organization Address [facility] Co de Phone Number LABORATORY [address] [address] * URINALYSIS, REFLEX TO CULTURE (CUP ONLY) (06/28/2023 10:30 PM EST) Urinalysis, Reflex to Culture Specimen Specimen collected and received 2023 12:01 AM EST LABORATORY [facility] Urine Urine specimen obtained by clean catch procedure / Unknown Non-blood Collection / Unknown 06/28/2023 10:30 PM EST 06/28/2023 10:36 PM EST Sofia Hernandez PA-C LAB URINE O RDERABLES Performing Organization Address [facility] de Phone Number LABORATORY [address] [address] * CT ABD/PELVIS W IV CONTRAST - WO ORAL CONTRAST (06/28/2023 10:08 PM EST) Anatomical Region Laterality Modality Body, Abdomen, Pelvis Computed T omography 06/28/2023 9:59 PM EST Impressions 06/28/2023 10:38 PM EST IMPRESSION: 1. No hydronephrosis .There is no evidence of renal or ureteral calcifications. 2. Nonobstructive bowel gas pattern 3. Stable postoperative changes of the epigastric region. 4. Overall nonobstructive bowel gas pattern. 5. Bilateral ovarian cyst, if further imaging required consider ultrasound THIS DOCUMENT HAS BEEN ELECTRONICALLY SIGNED BY BETO KISER MD Narrative 06/28/2023 10:38 PM EST PROCEDURE INFORMATION: Exam: CT Abdomen And Pelvis With Contrast Exam date and time: 06/28/2023 9:59 PM Age: 37 years old Clinical indication: Abdominal pain; Generalized; Patient HX: Elevated lipase, one episode of right flank pain yesterday, HX of kidney stones. Neg preg test in er TECHNIQUE: Imaging protocol: Computed tomography of the abdomen and pelvis with contrast. Radiation optimization: All CT scans at this facility use at least one of these dose optimization techniques: automated exposure control; mA and/or kV adjustment per patient size (includes targeted exams where dose is matched to clinical indication); or iterative reconstruction. Contrast material: OPTIRAY 350; Contrast volume: 100 ml; Contrast route: INTRAVENOUS (IV); COMPARISON: CT ABD/PELVIS WO IV/ORAL CONTRAST 03/06/2023 3:43 PM FINDINGS: Lungs: No acute abnormality. Liver: Normal. No mass. Gallbladder and bile ducts: Normal. No calcified stones. No ductal dilation. Pancreas: Normal. No ductal dilation. Spleen: Normal. No splenomegaly. Adrenal glands: Normal. No mass. Kidneys and ureters: 1.7 cm cyst upper pole right kidney grossly stable.Scarring and cortical thinning of both kidneys. 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 There is no evidence of renal or ureteral calcifications. Stomach and bowel: Stable postoperative changes of the paraesophageal region and stomach. Fluid-filled nonspecific loops of small bowel. Appendix: No evidence of appendicitis. Intraperitoneal space: Unremarkable. No free air. No significant fluid collection. Vasculature: Unremarkable. No abdominal aortic aneurysm. Lymph nodes: There are multiple nonspecific nonpathologic but prominent lymph nodes in the mesentery. There are no mesenteric lymph nodes of pathologic dimensions. Urinary bladder: Unremarkable as visualized. Reproductive: Small bilateral ovarian cysts. Bones/joints: Unremarkable. No acute fracture. Soft tissues: Unremarkable. Procedure Note Beto Kiser MD - 06/28/2023 PROCEDURE INFORMATION: Exam: CT Abdomen And Pelvis With Contrast Exam date and time: 06/28/2023 9:59 PM Age: 37 years old Clinical indication: Abdominal pain; Generalized; Patient HX: Elevatedlipase, one episode of right flank pain yesterday, HX of kidney stones. Neg pregtest in er TECHNIQUE: Imaging protocol: Computed tomography of the abdomen and pelvis withcontrast. Radiation optimization: All CT scans at this facility use at least one ofthese dose optimization techniques: automated exposure control; mA and/or kV adjustment per patient size (includes targeted exams where dose is matchedto clinical indication); or iterative reconstruction. Contrast material: OPTIRAY 350; Contrast volume: 100 ml; Contrast route: INTRAVENOUS (IV); COMPARISON: CT ABD/PELVIS WO IV/ORAL CONTRAST 03/06/2023 3:43 PM FINDINGS: Lungs: No acute abnormality. Liver: Normal. No mass. Gallbladder and bile ducts: Normal. No calcified stones. No ductaldilation. Pancreas: Normal. No ductal dilation. Spleen: Normal. No splenomegaly. Adrenal glands: Normal. No mass. Kidneys and ureters: 1.7 cm cyst upper pole right kidney grossly stable.Scarring and cortical thinning of both kidneys. 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 There is no evidence of renal or ureteral calcifications. Stomach and bowel: Stable postoperative changes of the paraesophagealregion and stomach. Fluid-filled nonspecific loops of small bowel. Appendix: No evidence of appendicitis. Intraperitoneal space: Unremarkable. No free air. No significant fluid collection. Vasculature: Unremarkable. No abdominal aortic aneurysm. Lymph nodes: There are multiple nonspecific nonpathologic but prominentlymph nodes in the mesentery. There are no mesenteric lymph nodes of pathologic dimensions. Urinary bladder: Unremarkable as visualized. Reproductive: Small bilateral ovarian cysts. Bones/joints: Unremarkable. No acute fracture. Soft tissues: Unremarkable. IMPRESSION IMPRESSION: 1. No hydronephrosis .There is no evidence of renal or ureteral calcifications. 2. Nonobstructive bowel gas pattern 3. Stable postoperative changes of the epigastric region. 4. Overall nonobstructive bowel gas pattern. 5. Bilateral ovarian cyst, if further imaging required considerultrasound THIS DOCUMENT HAS BEEN ELECTRONICALLY SIGNED BY BETO KISER MD Sofia Hernadnez PA-C RAD CT * RESPIRATORY PATHOGEN PANEL, PCR (06/28/2023 8:52 PM EST) Adenovirus by PCR Negative Negative 024 9:44 PM EST LABORATORY [facility] Coronavirus 229E by PCR Negative Negative 06/28/2023 9:44 PM EST [facility] Coronavirus HKU1 by PCR Negative Negative 06/28/2023 9:44 PM EST [facility] Coronavirus NL63 by PCR Negative Negative 06/28/2023 9:44 PM EST LABORATORY [facility] Coronavirus OC43 by PCR Negative Negative 06/28/2023 9:44 PM EST LABORATORY [facility] Coronavirus SARS-CoV-2 by PCR Negative Negative 06/28/2023 9:44 PM EST LABORATORY [facility] Human Metapneumovirus by PCR Negative Negative 06/28/2023 9:44 PM EST LABORATORY [facility] Rhinovirus/Enterovi chelsi by PCR Negative Negative 06/28/2023 9:44 PM EST LABORATORY [facility] Influenza A Virus by PCR Negative Negative 06/28/2023 9:44 PM EST LABORATORY [facility] Influenza B Virus by PCR Negative Negative 06/28/2023 9:44 PM EST LABORATORY [facility] Parainfluenza Virus 1 by PCR Negative Negative 06/28/2023 9:44 PM EST LABORATORY [facility] Parainfluenza Virus 2 by PCR Negative Negative 06/28/2023 9:44 PM EST LABORATORY [facility] Parainfluenza Virus 3 by PCR Negative Negative 06/28/2023 9:44 PM EST LABORATORY [facility] Parainfluenza Virus 4 by PCR Negative Negative 06/28/2023 9:44 PM EST LABORATORY [facility] Respiratory Syncytial Virus by PCR Negative Negative 06/28/2023 9:44 PM EST LABORATORY [facility] Bordetella pertussis by PCR Negative Negative 06/28/2023 9:44 PM EST LABORATORY [facility] Chlamydia pneumoniae by PCR Negative Negative 06/28/2023 9:44 PM EST LABORATORY [facility] Mycoplasma pneumoniae by PCR Negative Negative 06/28/2023 9:44 PM EST LABORATORY [facility] Bordetella parapertussis by PCR Negative Negative 06/28/2023 9:44 PM EST LABORATORY [facility] Comment: The primers that detect Rhinovirus may cross react with some Enterorviruses. The validation of bronchial specimens, tracheal aspirates, and throats for this assay was developed and performance characteristics determined by [employer] The validation of alternate specimen types has not been cleared or approved by the U.S. Food and Drug Administration (FDA). It has been determined that such clearance or approval is not necessary. Upper Respiratory Mid-turbinate nasal swab / Unknown Non-blood Collection / Unknown 06/28/2023 8:52 PM EST 06/28/2023 8:55 PM EST Sofia Hernandez PA-C LAB MICRO - GENERAL ORDERABLES LABORATORY [facility] [address] [place] [address] * (ABNORMAL) DIFFERENTIAL, AUTOMATED (06/28/2023 8:45 PM EST) WBC 18.07(H) 4.00 - 10.80 K/uL 06/28/2023 8:52 PM EST LAB[facility]ATORY [facility] Neutrophils % 83.2(H) 40.0 - 75.0 % 06/28/2023 8:52 PM EST LAB[facility] Lymphocytes % 11.4(L) 18.0 - 42.0 % 06/28/2023 8:52 PM EST LAB[facility] Monocytes % 4.4 1.0 - 11.0 % 06/28/2023 8:52 PM EST LAB[facility] Eosinophils % 0.1 0.0 - 6.0 % 06/28/2023 8:52 PM EST LAB[facility] Basophils % 0.5 0.0 - 2.0 % 06/28/2023 8:52 PM EST LAB[facility] Immature Granulocytes % 0.4 0.0 - 2.0 % 06/28/2023 8:52 PM EST LAB[facility] Absolute Neutrophils 15.03(H) 1.80 - 7.70 K/uL 06/28/2023 8:52 PM EST LAB[facility] Absolute Lymphocytes 2.06 1.00 - 4.80 K/ul 06/28/2023 8:52 PM EST LAB[facility] Absolute Monocytes 0.80 0.00 - 1.10 K/uL 06/28/2023 8:52 PM EST [facility] Absolute Eosinophils 0.02 0.00 - 0.70 K/uL 06/28/2023 8:52 PM EST [facility] Absolute Basophils 0.09 0.00 - 0.20 K/uL 06/28/2023 8:52 PM EST LAB[facility] Absolute Immature Granulocytes 0.07 0.00 - 0.20 K/uL 06/28/2023 8:52 PM EST [facility] Blood Venous blood specimen / Unknown Venipuncture / Unknown 06/28/2023 8:45 PM EST 06/28/2023 8:49 PM EST Sofia Hernandez PA-C LAB BLOOD O RDERABLES LABORATORY [address] [address] * (ABNORMAL) CBC (06/28/2023 8:45 PM EST) WBC 18.07(H) 4.00 - 10.80 K/uL 06/28/2023 8:52 PM EST LABORATORY GL RBC 5.49 3.85 - 5.15 M/uL 06/28/2023 8:52 PM EST LAB[facility] HGB 16.2(H) 12.0 - 15.3 g/dL 06/28/2023 8:52 PM EST LAB[facility] HCT 47.4(H) 36.0 - 45.2 % 06/28/2023 8:52 PM EST LABORATORY GL MCV 86.3 81.5 - 97.5 fL 06/28/2023 8:52 PM EST LAB[facility] MCH 29.5 27.0 - 34.0 pg 06/28/2023 8:52 PM EST LABORATORY GL MCHC 34.2 32.0 - 36.0 g/dL 06/28/2023 8:52 PM EST LABORATORY GL RDW 12.6 11.5 - 15.5 % 06/28/2023 8:52 PM EST LABORATORY GL PLT 383 140 - 400 K/uL 06/28/2023 8:52 PM EST LABORATORY GL MPV 10.8 6.6 - 11.1 fL 06/28/2023 8:52 PM EST LAB[facility] nRBCs 0 <=0 /100 WBCs 06/28/2023 8:52 PM EST [facility] Blood Venous blood specimen / Unknown Venipuncture / Unknown 06/28/2023 8:45 PM EST 06/28/2023 8:49 PM EST Sofia Hernandez PA-C LAB BLOOD O RDERABLES LABORATORY [address] [address] * PROCALCITONIN (06/28/2023 8:45 PM EST) Procalcitonin <0.02 <0.10 ng/mL 06/28/2023 9:20 PM EST LABORATORY [facility] Blood Venous blood specimen / Unknown Venipuncture / Unknown 06/28/2023 8:45 PM EST 06/28/2023 8:49 PM EST Narrative LABORATORY [facility] - 06/28/2023 9:20 PM EST Less than 0.5 ng/mL: Low risk for progression to sepsis. Review patients condition for localized infections. 0.5 to 2.0 ng/mL: Intermediate risk for progresion to sepsis. Review underlying conditions. Recommend repeat PCT after 6 hours has elapsed. Greater than 2.0 ng/mL: high risk for progression to sepsis unless other causes are known. Sofia Hernandez PA-C LAB BLOOD O RDWILSON Performing Organization Address City/[facility]/ZIP Co de Phone Number LABORATORY [address] [address] * (ABNORMAL) PHOSPHORUS (06/28/2023 8:45 PM EST) Pathologist [facility] Phosphorus 1.7(L) 2.5 - 4.8 mg/dL 06/28/2023 9:32 PM EST LABORATORY [facility] Blood Venous blood specimen / Unknown Venipuncture / Unknown 06/28/2023 8:45 PM EST 06/28/2023 8:49 PM EST Sofia Hernandez PA-C LAB BLOOD O RDERABRYAN LABORATORY [address] [address] * MAGNESIUM (06/28/2023 8:45 PM EST) Pathologist [facility] Magnesium 1.8 1.5 - 2.6 mg/dL 06/28/2023 9:32 PM EST LABORATORY [facility] Blood Venous blood specimen / Unknown Venipuncture / Unknown 06/28/2023 8:45 PM EST 06/28/2023 8:49 PM EST Sofia Hernandez PA-C LAB BLOOD O RDERABLES Performing Organization Address [facility]/ZIP Co de Phone Number LABORATORY [address] [address] * (ABNORMAL) LIPASE (06/28/2023 8:45 PM EST) Lipase 102(H) 13 - 60 U/L 06/28/2023 9:32 PM EST LABORATORY [facility] Blood Venous blood specimen / Unknown Venipuncture / Unknown 06/28/2023 8:45 PM EST 06/28/2023 8:49 PM EST Sofia Hernandez PA-C LAB BLOOD O RDERABLES Performing Organization Address [facility] Co de Phone Number LABORATORY [address] [address] * (ABNORMAL) LACTATE (06/28/2023 8:45 PM EST) Lactate 5.1(HH) 0.4 - 2.0 mmol/L 06/28/2023 9:14 PM EST LABORATORY [facility] Blood Venous blood specimen / Unknown Venipuncture / Unknown 06/28/2023 8:45 PM EST 06/28/2023 8:49 PM EST Sofia Hernandez PA-C LAB BLOOD O RDERABLES Performing Organization Address [facility]/ZIP Co de Phone Number LABORATORY [address] [address] * (ABNORMAL) COMPREHENSIVE METABOLIC PANEL (06/28/2023 8:45 PM EST) BUN 12 6 - 20 mg/dL 06/28/2023 9:32 PM EST LABORATORY GL Creatinine 0.9 0.5 - 1.0 mg/dL 06/28/2023 9:32 PM EST LABORATORY GL Estimated Glomerular Filtration Rate 86 >=60 mL/min 06/28/2023 9:32 PM EST LAB[facility] Comment:eGFR is calculated b ased on the CKD-EPI 2020 equation Sodium 137 135 - 146 mmol/L 06/28/2023 9:32 PM EST LAB[facility] Potassium 3.3(L) 3.5 - 5.1 mmol/L 06/28/2023 9:32 PM EST [facility] Chloride 99 98 - 107 mmol/L 06/28/2023 9:32 PM EST [facility] CO2 14(L) 22 - 32 mmol/L 06/28/2023 9:32 PM EST [facility] Anion Gap 24(H) 7 - 15 mmol/L 06/28/2023 9:32 PM EST [facility] Glucose 140(H) 70 - 120 mg/dL 06/28/2023 9:32 PM EST [facility] Albumin 4.5 3.8 - 5.0 g/dL 06/28/2023 9:32 PM EST [facility] AST 28 10 - 35 U/L 06/28/2023 9:32 PM EST [facility] Comment:Result may be falsel y elevated due to hemolysis. Alkaline Phosphatase 76 35 - 130 U/L 06/28/2023 9:32 PM EST [facility] Bilirubin, Total 1.2 <=1.2 mg/dL 06/28/2023 9:32 PM EST [facility] Calcium 10.1 8.4 - 10.2 mg/dL 06/28/2023 9:32 PM EST [facility] Protein 8.3 6.0 - 8.3 g/dL 06/28/2023 9:32 PM EST [facility] ALT 8(L) 10 - 35 U/L 06/28/2023 9:32 PM EST [facility] Blood Venous blood specimen / Unknown Venipuncture / Unknown 06/28/2023 8:45 PM EST 06/28/2023 8:49 PM EST Sofia Hernandez PA-C LAB BLOOD O RDERABLES LAB[facility] [address] [place] [address] * BETA-HCG, QUANTITATIVE (06/28/2023 8:45 PM EST) Beta-HCG, Quantitative <0.1 <=1.0 mIU/mL 06/28/2023 9:16 PM EST LABORATORY [facility] Blood Venous blood specimen / Unknown Venipuncture / Unknown 06/28/2023 8:45 PM EST 06/28/2023 8:49 PM EST [facility] LABORATORY [facility] - 06/28/2023 9:16 PM EST hCG can serve as a screening assay for . However, early may not give a positive hCG test result. In addition, some non- women may have a hCG result slightly higher than the reference limit. Careful interpretation of the hCG with clinical history is required to determine whether the patient may be . Sofia Hernandez PA-C LAB BLOOD O RDERABLES LABORATORY [address] [address] documented in this encounter Visit Diagnoses Diagnosis Nausea and vomiting, unspecified vomiting type- Primary documented in this encounter Administered Medications Inactive Administered Medications - up to 3 most recent administrations Medication Order MAR Action Action Date Dose Rate Site diphenhydrAMINE (Benadryl) inj 25 mg 25 mg, IV Push, ONCE, On Sun06/28/23 at 2215, For 1 dose Given 06/28/2023 9:40 PM EST 25 mg droPERidol (Inapsine) inj 0.625 mg 0.625 mg, IV Push, ONCE, On Sun06/28/23 at 2345, For 1 dose Given 06/28/2023 11:24 PM EST 0.625 mg Ioversol (Optiray 350) 74 % inj 100 mL 100 mL, Intravenous, ONCE, On Noris 06/28/23 at 2245, For 1 dose, Radiology Medication Routing (Non-IR) Given 06/28/2023 10:45 PM EST 100 mL NSS 0.9% 1,000 mL bolus infusion IV Piggyback, at 1,000 mL/hr Administer over 60 Minutes, Administer entire volume within 60 minutes or less., ONCE, 1 dose, On Sun06/28/23 at 2115 Restarted 06/28/2023 8:59 PM EST 1000 mL/hr New Bag 06/28/2023 8:52 PM EST 1,000 mL 1000 mL/hr NSS 0.9% 1,000 mL bolus infusion IV Piggyback, at 1,000 mL/hr Administer over 60 Minutes, Administer entire volume within 60 minutes or less., ONCE, 1 dose, On Noris 06/28/23 at 2245 New Bag 06/28/2023 10:35 PM EST 1,000 mL 1000 mL/hr ondansetron (Zofran) inj 4 mg 4 mg, Intravenous, ONCE, On Noris 06/28/23 at 2115, For 1 dose Given 06/28/2023 8:45 PM EST 4 mg prochlorperazine (Compazine) inj 5 mg 5 mg, IV Push, ONCE, On Noris 06/28/23 at 2130, For 1 dose Given 06/28/2023 9:01 PM EST 5 mg trimethobenzamide (Tigan) inj 100 mg 100 mg, Intramuscular, ONCE, On Noris 06/28/23 at 2215, For 1 dose Given 06/28/2023 9:39 PM EST 100 mg Deltoid Left Upper documented in this encounter Active and Recently Administered Medications Times are shown in EST. Scheduled Medication Order 06/27/2023 06/28/2023 2023 diphenhydrAMINE (Benadryl) inj 25 mg (COMPLETED) 25 mg, IV Push, ONCE, On Noris 06/28/23 at 2215, For 1 dose 2140 (Given - Provider: Marlena Peterson RN) droPERidol (Inapsine) inj 0.625 mg (COMPLETED) 0.625 mg, IV Push, ONCE, On Noris 06/28/23 at 2345, For 1 dose 2324 (Given - Provider: Marlena Peterson RN) Ioversol (Optiray 350) 74 % inj 100 mL (COMPLETED) 100 mL, Intravenous, ONCE, On Noris 06/28/23 at 2245, For 1 dose, Radiology Medication Routing (Non-IR) 2245 (Given - Provider: Desmond Elias, RT) NSS 0.9% 1,000 mL bolus infusion (COMPLETED) IV Piggyback, at 1,000 mL/hr Administer over 60 Minutes, Administer entire volume within 60 minutes or less., ONCE, 1 dose, On Noris 06/28/23 at 2115 2051 (New Bag - Provider: Jocelin Flanagan RN)2056 (Paused - Provider: Elisabet Peterson, PATRICIA)2058 (Restarted - Provider: Elisabet Peterson, RN)2153 (Stopped - Provider: Elisabet Peterson, RN) NSS 0.9% 1,000 mL bolus infusion (COMPLETED) IV Piggyback, at 1,000 mL/hr Administer over 60 Minutes, Administer entire volume within 60 minutes or less., ONCE, 1 dose, On Noris 06/28/23 at 2245 2235 (New Bag - Provider: Bruna Peterson, PATRICIA)2333 (Stopped - Provider: Elisabet Peterson, PATRICIA) ondansetron (Zofran) inj 4 mg (COMPLETED) 4 mg, Intravenous, ONCE, On Noris 06/28/23 at 211, For 1 dose 2044 (Given - Provider: Maricarmen Flanagan RN) prochlorperazine (Compazine) inj 5 mg (COMPLETED) 5 mg, IV Push, ONCE, On Noris 06/28/23 at 2130, For 1 dose 2100 (Given - Provider: Maricarmen Flanagan RN) trimethobenzamide (Tigan) inj 100 mg (COMPLETED) 100 mg, Intramuscular, ONCE, On Noris 06/28/23 at 2215, For 1 dose 2138 (Given - Provider: Marlena Peterson RN) documented in this encounter Additional Health Concerns Infection Onset Date Last Indicated Resolved Time Respiratory Rule-Out 06/28/2023 06/28/2023 024 9:44 PM EST COVID-19 Rule-Out 06/28/2023 06/28/2023 06/28/2023 9:44 PM EST documented as of this encounter Care Teams V[employer] Business [employer] Relationship Specialty Start Date End Date Wei Laughlin PA-C [address] [id number] PCP - General Physician [employer] 03/07/16 documented as of this encounter
--- OUTSIDE RECORDS SUMMARY | 2023-07-29 04:49 | External Medical Summary ---
Author Name Unknown Address Unknown Organization K1F:LAB[facility]ATORY [facility] - [address] [place] [address] Laboratory Report Ordering Provider Test Date Status ALEXANDRIA RAMOS 07/25/2023 08:38:49 Final Observation Date Value Abnormality Reference (Units ) Status BUN 07/25/2023 08:38:49 26 Above high normal 6-20 (mg/dL) Final Creatinine 07/25/2023 08:38:49 1.3 Above high normal 0.5-1.0 (mg/dL) Final Glomerular filtration rate/1.73 sq M.predicted [Volume Rate/Area] in Serum, Plasma or Blood by Creatinine-based formula (CKD-EPI) 07/25/2023 08:38:49 55 Below low normal >=60 (mL/min) Final eGFR is calculated based on the CKD-EPI 2020 equation SODIUM 07/25/2023 08:38:49 135 135-146 (m mol/L) Final Potassium 07/25/2023 08:38:49 3.3 Below low normal 3.5 -5.1 (mmol/L) Final Cl 07/25/2023 08:38:49 100 98-107 (mm ol/L) Final CO2 07/25/2023 08:38:49 16 Below low normal 22- 32 (mmol/L) Final Anion gap 07/25/2023 08:38:49 19 Above high normal 7- 15 (mmol/L) Final Glucose 07/25/2023 08:38:49 108 70-120 (mg /dL) Final Albumin 07/25/2023 08:38:49 4.5 3.8-5.0 (g /dL) Final AST (Aspartate aminotransferase) 07/25/2023 08:38:49 23 10-35 (U/L) Fin al Alk Phos 07/25/2023 08:38:49 68 35-130 (U/ L) Final Bilirubin, Total 07/25/2023 08:38:49 1.5 Above high no rmal <=1.2 (mg/dL) Final Calcium 07/25/2023 08:38:49 9.8 8.4-10.2 ( mg/dL) Final Protein 07/25/2023 08:38:49 8.2 6.0-8.3 (g /dL) Final ALT (Alanine aminotransferase) 07/25/2023 08:38:49 7 Below low normal 10-35 (U/L) Final Performing Location LABORATORY [facility] - [facility] [address] [place] [address]
--- OUTSIDE RECORDS SUMMARY | 2023-07-29 04:49 | External Medical Summary ---
Author Name Unknown Address Unknown Organization K01:LABORATORY [facility] [place] - [address] [place] [address] Laboratory Report Ordering Provider Test Date Status KATE HARO 07/24/2023 11:48:38 Final Observation Date Value Abnormality Reference (Units ) Status Lipase 07/24/2023 11:48:38 36 13-60 (U/L ) Final Performing Location LAB[facility]ATORY [facility] [place] [facility] [address] [place] [address]
--- OUTSIDE RECORDS SUMMARY | 2023-07-29 04:49 | External Medical Summary ---
Author Name Unknown Address Unknown Organization K1F:LABORATORY [facility] - [address] [place] [address] Laboratory Report Ordering Provider Test Date Status ALEXANDRIA RAMOS 07/25/2023 10:09:00 Final Observation Date Value Abnormality Reference (Units ) Status Lactic Acid 07/25/2023 10:09:00 4.3 Above upper panic limits 0.4-2.0 (mmol/L) Final Performing Location LAB[facility]ATORY [facility] - [address] [place] [address]
--- OUTSIDE RECORDS SUMMARY | 2023-07-29 04:49 | External Medical Summary ---
Author Name Unknown Address Unknown Organization K01:LABORATORY [facility] – [place], [place] - [address] [place] [address] Laboratory Report Ordering Provider Test Date Status JERROD GODOY 07/24/2023 11:48:38 Final Observation Date Value Abnormality Reference (Units ) Status MYCODE SPECIMEN-SST 07/24/2023 11:48:38 Freezing of extracted DNA, whole blood and/or serum. Final Performing Location LABORATORY C - [address] [place] [address]
--- OUTSIDE RECORDS SUMMARY | 2023-07-29 04:49 | External Medical Summary ---
Author Name Unknown Address Unknown Organization K1F:LABORATORY [facility] - [address] [facility] [place] [address] Laboratory Report Ordering Provider Test Date Status ALEXANDRIA RAMOS 07/25/2023 10:58:11 Final ADMITTED patient Observation Date Value Abnormality Reference (Units ) Status Adenovirus DNA [Presence] in Nasopharynx by KIMBERLY with non-probe detection 07/25/2023 10:58:11 Negative Negative Final Human coronavirus 229E RNA [Presence] in Nasopharynx by KIMBERLY with non-probe detection 07/25/2023 10:58:11 Negative Negative Final Human coronavirus HKU1 RNA [Presence] in Nasopharynx by KIMBERLY with non-probe detection 07/25/2023 10:58:11 Negative Negative Final Human coronavirus NL63 RNA [Presence] in Nasopharynx by KIMBERLY with non-probe detection 07/25/2023 10:58:11 Negative Negative Final Human coronavirus OC43 RNA [Presence] in Nasopharynx by KIMBERLY with non-probe detection 07/25/2023 10:58:11 Negative Negative Final SARS-CoV-2 (COVID-19) RNA [Presence] in Nasopharynx by KIMBERLY with non-probe detection 07/25/2023 10:58:11 Negative Negative Final Human metapneumovirus RNA [Presence] in Nasopharynx by KIMBERLY with non-probe detection 07/25/2023 10:58:11 Negative Negative Final Rhinovirus+Enterovirus RNA [Presence] in Nasopharynx by KIMBERLY with non-probe detection 07/25/2023 10:58:11 Negative Negative Final Influenza virus A RNA [Presence] in Nasopharynx by KIMBERLY with non-probe detection 07/25/2023 10:58:11 Negative Negative Final Influenza virus B RNA [Presence] in Nasopharynx by KIMBERLY with non-probe detection 07/25/2023 10:58:11 Negative Negative Final Parainfluenza virus 1 RNA [Presence] in Nasopharynx by KIMBERLY with non-probe detection 07/25/2023 10:58:11 Negative Negative Final Parainfluenza virus 2 RNA [Presence] in Nasopharynx by KIMBERLY with non-probe detection 07/25/2023 10:58:11 Negative Negative Final Parainfluenza virus 3 RNA [Presence] in Nasopharynx by KIMBERLY with non-probe detection 07/25/2023 10:58:11 Negative Negative Final Parainfluenza virus 4 RNA [Presence] in Nasopharynx by KIMBERLY with non-probe detection 07/25/2023 10:58:11 Negative Negative Final Respiratory syncytial virus RNA [Presence] in Nasopharynx by KIMBERLY with non-probe detection 07/25/2023 10:58:11 Negative Negative Final Bordetella pertussis.pertussis toxin promoter region [Presence] in Nasopharynx by KIMBERLY with non-probe detection 07/25/2023 10:58:11 Negative Negative Final Chlamydophila pneumoniae DNA [Presence] in Nasopharynx by KIMBERLY with non-probe detection 07/25/2023 10:58:11 Negative Negative Final Mycoplasma pneumoniae DNA [Presence] in Nasopharynx by KIMBERLY with non-probe detection 07/25/2023 10:58:11 Negative Negative Final Bordetella parapertussis [id number] DNA [Presence] in Nasopharynx by KIMBERLY with non-probe detection 07/25/2023 10:58:11 Negative Negative Final
The primers that detect Rhinovirus may cross react with some Enterorviruses. The validation of bronchial specimens, tracheal aspirates, and throats for this assay was developed and performance characteristics determined by [employer] [facility] [employer]. The validation of alternate specimen types has not been cleared or approved by the U.S. Food and Drug Administration (FDA). It has been determined that such clearance or approval is not necessary. [facility] GL - [address] [facility] [address] [facility] [address]
--- OUTSIDE RECORDS SUMMARY | 2023-07-29 04:49 | External Medical Summary ---
Author Name Unknown Address Unknown Organization K01:LABORATORY [facility] – [place], [place] - [address] [place] [facility] Laboratory Report Ordering Provider Test Date Status TIFFANY DERAS 06/28/2023 22:30:08 Final Observation Date Value Abnormality Reference (Units) Status Bacteria identified in Specimen by Culture 06/28/2023 22:30:08 No significant growth Final Test: Culture, Urine, Quanti tative
Specimen Source: Urine, Clean Catch
Specimen Type: Urine
Specimen Date: 06/28/2023 10:30 PM
Result Date: 06/30/2023 9:57 AM
Result Status: Final result
Resulting Lab: LABORATORY [facility] – [place], [place]
[address] [place]
[place] [address]

CULTURE

No significant growth

null Performing Location LABORATORY [facility] – [place], [place] - [address] [place] [address]
--- OUTSIDE RECORDS SUMMARY | 2023-07-29 04:49 | External Medical Summary ---
Author Name Unknown Address Unknown Organization K1F:LABORATORY [facility] - [address] [place] [address] Laboratory Report Ordering Provider Test Date Status ALEXANDRIA RAMOS 07/25/2023 08:38:49 Final Observation Date Value Abnormality Reference (Units ) Status WBC, Total 07/25/2023 08:38:49 12.72 Above high normal 4.00-10.80 (K/uL) Final RBC 07/25/2023 08:38:49 5.49 3.85-5.15 (M/uL) Final Hemoglobin 07/25/2023 08:38:49 16.1 Above high normal 12.0-15.3 (g/dL) Final HCT 07/25/2023 08:38:49 46.3 Above high normal 36.0-45.2 (%) Final MCV 07/25/2023 08:38:49 84.3 81.5-97.5 (fL) Final MCH 07/25/2023 08:38:49 29.3 27.0-34.0 (pg) Final MCHC 07/25/2023 08:38:49 34.8 32.0-36.0 (g/dL) Final RDW 07/25/2023 08:38:49 12.2 11.5-15.5 (%) Final Platelets 07/25/2023 08:38:49 385 140-400 (K/uL) Final MPV 07/25/2023 08:38:49 11.0 6.6-11.1 (fL) Final Nucleated erythrocytes/100 leukocytes [Ratio] in Blood by Automated count 07/25/2023 08:38:49 0 <=0 (/100 WBCs) Final Performing Location LABORATORY [facility] - [address] [place] [address]
--- OUTSIDE RECORDS SUMMARY | 2023-07-29 04:49 | External Medical Summary ---
Author Name Unknown Address Unknown Organization K01:LABORATORY C - [address] [place] [address] Laboratory Report Ordering Provider Test Date Status KATE HARO 07/24/2023 11:48:38 Final Observation Date Value Abnormality Reference (Units ) Status Ferritin 07/24/2023 11:48:38 71 13-150 (ng /mL) Final Performing Location LAB[facility]ATORY [facility] - [address] [place] [address]
--- OUTSIDE RECORDS SUMMARY | 2023-07-29 04:49 | External Medical Summary ---
Author Name Unknown Address Unknown Organization K0G:LABORATORY [place] [address] - [address] [place] [address] Laboratory Report Ordering Provider Test Date Status KATE HARO 07/24/2023 11:48:38 Final Observation Date Value Abnormality Reference (Units ) Status BUN 07/24/2023 11:48:38 23 Above high normal 6-20 (mg/dL) Final Creatinine 07/24/2023 11:48:38 1.3 Above high normal 0.5-1.0 (mg/dL) Final Glomerular filtration rate/1.73 sq M.predicted [Volume Rate/Area] in Serum, Plasma or Blood by Creatinine-based formula (CKD-EPI) 07/24/2023 11:48:38 52 Below low normal >=60 (mL/min) Final eGFR is calculated based on the CKD-EPI 2020 equation SODIUM 07/24/2023 11:48:38 135 135-146 (m mol/L) Final Potassium 07/24/2023 11:48:38 4.1 3.5-5.1 (m mol/L) Final Cl 07/24/2023 11:48:38 100 98-107 (mm ol/L) Final CO2 07/24/2023 11:48:38 20 Below low normal 22- 32 (mmol/L) Final Anion gap 07/24/2023 11:48:38 15 7-15 (mmol /L) Final Glucose 07/24/2023 11:48:38 86 70-120 (mg /dL) Final Albumin 07/24/2023 11:48:38 4.7 3.8-5.0 (g /dL) Final AST (Aspartate aminotransferase) 07/24/2023 11:48:38 17 10-35 (U/L) Fin al Alk Phos 07/24/2023 11:48:38 67 35-130 (U/ L) Final Bilirubin, Total 07/24/2023 11:48:38 1.4 Above high no rmal <=1.2 (mg/dL) Final Calcium 07/24/2023 11:48:38 10.1 8.4-10.2 ( mg/dL) Final Protein 07/24/2023 11:48:38 7.8 6.0-8.3 (g /dL) Final ALT (Alanine aminotransferase) 07/24/2023 11:48:38 8 Below low normal 10-35 (U/L) Final [facility] - [address] [facility] [address]
--- OUTSIDE RECORDS SUMMARY | 2023-07-29 04:49 | External Medical Summary ---
Author Name Unknown Address Unknown Organization K01:LABORATORY [facility] - [address] [place] [address] Laboratory Report Ordering Provider Test Date Status KATE HARO 07/24/2023 11:48:38 Final Observation Date Value Abnormality Reference (Units ) Status Phosphate 07/24/2023 11:48:38 4.2 2.5-4.8 (m g/dL) Final Performing Location LABORATORY [facility] - [address] [place] [address]
--- OUTSIDE RECORDS SUMMARY | 2023-07-29 04:49 | External Medical Summary ---
Author Name Unknown Address Unknown Organization : Laboratory Report Ordering Provider Test Date Status NO,UNKNOWN 07/25/2023 08:42:31 Final Observation Date Value Abnormality Reference (Units ) Status Glucose Point of Care 07/25/2023 08:42:31 115 70-120 (mg/dL) Final Performing Location
--- OUTSIDE RECORDS SUMMARY | 2023-07-29 04:49 | External Medical Summary ---
Author Name Unknown Address Unknown Organization K0G:LABORATORY [facility] [place] [address] - [address] [place] [address] Laboratory Report Ordering Provider Test Date Status KATE HARO 07/24/2023 11:48:38 Final Observation Date Value Abnormality Reference (Units ) Status SYNC LEUKOCYTES IN BLOOD BY AUTOMATED COUNT 07/24/2023 11:48:38 12.24 Above high normal 4.00-10.80 (K/uL) Final Segs 07/24/2023 11:48:38 71.3 40.0-75.0 (%) Final Lymphs % 07/24/2023 11:48:38 18.1 18.0-42.0 (%) Final Monos 07/24/2023 11:48:38 10.2 1.0-11.0 (%) Final Eosinophils 07/24/2023 11:48:38 0.2 0.0-6.0 (%) Final Basos 07/24/2023 11:48:38 0.2 0.0-2.0 (%) Final Absolute Segs 07/24/2023 11:48:38 8.72 Above high normal 1.80-7.70 (K/uL) Final Lymphs, absolute 07/24/2023 11:48:38 2.22 1.00-4.80 (K/ul) Final Monos, Abs 07/24/2023 11:48:38 1.25 Above high normal 0.00-1.10 (K/uL) Final Eos, Abs 07/24/2023 11:48:38 0.03 0.00-0.70 (K/uL) Final Basos, Abs 07/24/2023 11:48:38 0.02 0.00-0.20 (K/uL) Final Performing Location LABORATORY [facility] [place] [address] - [address] [place] [address]
--- OUTSIDE RECORDS SUMMARY | 2023-07-29 04:49 | External Medical Summary | Summary of Care ---
Author Name Unknown Organization [facility] Address [address] [facility] [place] [address] Phone [phone] Care Team Providers Care Mannequin Refinisher Name Role Phone Wei Laughlin PA-C Primary Care Provider [phone] Reason for Visit * Reason Comments Outpatient Testing Encounter Details Date Type Department Care Team (Late st Contact Info) Description 07/24/2023 11:50 AM EST Laboratory Laboratory, [facility] [address] [facility] [place] [phone] [facility] [place] [address] crossvertise Other*[id number]; Intestinal postoperative nonabsorption; Nausea and vomiting, unspecified vomiting type Allergies No known active allergiesdocumented as of this encounter (statuses as of 07/24/2023) Medications Medication Sig Dispensed Refills Start Date [...] Solution Auto-injector (Semaglutide-Weight Management) Inject 1.7 mg under the skin once a week for 28 days. 4 mL 0 07/24/2023 4 Active documented as of this encounter (statuses as of 07/24/2023) Active Problems Problem Noted Date Diagnosed Date [...] as of this encounter (statuses as of 07/24/2023) Resolved Problems Problem Noted Date Diagnosed Date [...] as of this encounter (statuses as of 07/24/2023) Immunizations Name Administration Dates Next Due H1N1 [...] on file documented as of this encounter Plan of Treatment Upcoming Encounters Date Type Department Care Team (Late st Contact Info) Description 07/25/2023 12:00 PM EST Office Visit Interventional [facility] Center, [facility] [place] [address] Taiwo Garcia CRNP [address] [facility] [address] 10/09/2023 4:20 PM EDT Office Visit [facility] [place] [phone] Wei Laughlin PA-C [facility] [address] 10/24/2023 10:00 AM EDT Nutrition Services Nutrition & Weight Management, [facility] [address] [facility] [place] [address] Lorelei Munoz RDN [address] [place] [address] 11/13/2023 1:10 PM EDT Office Visit Dermatology [facility] [address] [facility] [place] [address] Ruth Ann Teran PA-C [address] [facility] [place] [address] 02/06/2024 11:20 AM EDT Office Visit Nutrition & Weight Management, [facility] [address] [place] [address] Rachele Mike PA-C [address] [place] [address] 05/08/2024 9:20 AM EST Office Visit [facility], [place] [address] [place] [address] Stefanie Avila PA-C [address] [place] [address] Pending Results Name Type Priority Associated Diagnoses Date /Time MYCODE SUBSEQUENT ADULT Lab Routine [employer] Other*[id number] 07/24/2023 11:48 AM EST IRON SCREEN, INCLUDING TIBC Lab Routine Intestinal postoperative nonabsorption 07/24/2023 11:48 AM EST FERRITIN Lab Routine Intestinal postoperative nonabsorption 07/24/2023 11:48 AM EST 25-HYDROXY VITAMIN D Lab Routine Intestinal postoperative nonabsorption 07/24/2023 11:48 AM EST VITAMIN B12 Lab Routine Intestinal postoperative nonabsorption 07/24/2023 11:48 AM EST PHOSPHORUS Lab Routine Nausea and vomiting, unspecified vomiting type 07/24/2023 11:48 AM EST LIPASE Lab Routine Nausea and vomiting, unspecified vomiting type 07/24/2023 11:48 AM EST COMPREHENSIVE METABOLIC PANEL Lab Routine Nausea and vomiting, unspecified vomiting type 07/24/2023 11:48 AM EST MYCODE SST1 Lab Routine [employer] Other*[id number] 07/24/2023 11:48 AM EST MYCODE SST2 Lab Routine [employer] Other*[id number] 07/24/2023 11:48 AM EST Health Maintenance Due Date Last Done Comments Hepatitis B (1 of 3 - 19+ 3-dose series) 2005 COVID-19 Vaccine (2022-24 season) 2023 TSH 09/27/2023 09/26/2022, 0406/2021, 08/31/2020, Additional history exists Depression Screening 11/07/2023 [...] Procedure Name Priority Date/Time Associated Diagnosis Comments DIFFERENTIAL, AUTOMATED Routine 07/24/2023 11:48 AM EST Intestinal postoperative nonabsorption CBC Routine 07/24/2023 11:48 AM EST Intestinal postoperative nonabsorption CBC Routine 07/24/2023 11:48 AM EST Intestinal postoperative nonabsorption documented in this encounter Results * (ABNORMAL) DIFFERENTIAL, AUTOMATED (07/24/2023 11:48 AM EST) WBC 12.24(H) 4.00 - 10.80 K/uL 07/24/2023 12:03 PM EST LAB[facility]ATORY [place] [facility] Neutrophils % 71.3 40.0 - 75.0 % 07/24/2023 12:03 PM EST LAB[facility]ORY [place] [facility]10 Lymphocytes % 18.1 18.0 - 42.0 % 07/24/2023 12:03 PM EST LAB[facility] [place] [facility] Monocytes % 10.2 1.0 - 11.0 % 07/24/2023 12:03 PM EST [facility] [place] [facility] Eosinophils % 0.2 0.0 - 6.0 % 07/24/2023 12:03 PM EST [facility] [place] [facility] Basophils % 0.2 0.0 - 2.0 % 07/24/2023 12:03 PM EST LAB[facility]ORY [place] [facility] Absolute Neutrophils 8.72(H) 1.80 - 7.70 K/uL 07/24/2023 12:03 PM EST LAB[facility]ATORY [place] 57[facility] Absolute Lymphocytes 2.22 1.00 - 4.80 K/ul 07/24/2023 12:03 PM EST LAB[facility]ATORY [place] 57[facility] Absolute Monocytes 1.25(H) 0.00 - 1.10 K/uL 07/24/2023 12:03 PM EST LAB[facility]ATORY [place] 57[facility] Absolute Eosinophils 0.03 0.00 - 0.70 K/uL 07/24/2023 12:03 PM EST LAB[facility]ATORY [place] 57[place]10 Absolute Basophils 0.02 0.00 - 0.20 K/uL 07/24/2023 12:03 PM EST LAB[facility]ATORY [place]10 Blood Venous blood specimen / Unknown Venipuncture / Unknown 07/24/2023 11:48 AM EST 07/24/2023 11:48 AM EST Rachele Mike PA-C LAB BLOOD [facility] Organization Address City/State/ZIP Co de Phone Number [place] [phone] [place] [address] * (ABNORMAL) CBC (07/24/2023 11:48 AM EST) WBC 12.24(H) 4.00 - 10.80 K/uL 07/24/2023 12:03 PM EST LAB[facility]ATORY [place] RBC 5.14 3.85 - 5.15 M/uL 07/24/2023 12:03 PM EST LABORATORY [place] HGB 15.1 12.0 - 15.3 g/dL 07/24/2023 12:03 PM EST LABORATORY [place] 57-10 HCT 45.0 36.0 - 45.2 % 07/24/2023 12:03 PM EST LABORATORY [place] 57-10 MCV 87.5 81.5 - 97.5 fL 07/24/2023 12:03 PM EST LABORATORY [place] 57-10 MCH 29.4 27.0 - 34.0 pg 07/24/2023 12:03 PM EST LABORATORY [facility] [place] 57-10 MCHC 33.6 32.0 - 36.0 g/dL 07/24/2023 12:03 PM EST LABORATORY [facility] [place] 57-10 RDW 13.0 11.5 - 15.5 % 07/24/2023 12:03 PM EST [facility] PLT 361 140 - 400 K/uL 07/24/2023 12:03 PM EST [facility] MPV 11.2 6.6 - 11.1 fL 07/24/2023 12:03 PM EST [facility] Blood Venous blood specimen / Unknown Venipuncture / Unknown 07/24/2023 11:48 AM EST 07/24/2023 11:48 AM EST [place]ache[place] Mike PA-C [facility] Organization Address City/State/ZIP Co de Phone Number LABORATORY [facility] [place] [address] [place] [address] documented in this encounter Visit Diagnoses Diagnosis MyCode Research Other*[id number] Intestinal postoperative nonabsorption Other and unspecified postsurgical nonabsorption Nausea and vomiting, unspecified vomiting type documented in this encounter Care Teams Mannequin Refinisher Relationship Specialty Start Date End Date Wei Laughlin PA-C [address] [place] [phone] PCP - General Physician Nut Tightener 03/07/16 documented as of this encounter
--- OUTSIDE RECORDS SUMMARY | 2023-07-29 04:49 | External Medical Summary | Summary of Care ---
Author Name Unknown Organization [facility] Address [address] [facility] [address] [address] [place] [address] Phone [phone] Care Team Providers Care Division Toll Wire Chief Name Role Phone Wei Laughlin PA-C Primary Care Provider Reason for Visit * Reason Comments Weight Management History of sleeve 2013. Pt is on wegov Encounter Details Date Type Department Care Team (Late st Contact Info) Description 07/24/2023 11:00 AM EST Office Visit Nutrition & Weight Management, [facility] [address] [place] [address] Rachele Mike PA-C [address] [place] [address] Intestinal postoperative nonabsorption*; Nausea and vomiting, unspecified vomiting type Allergies No known active allergiesdocumented as of this encounter (statuses as of 07/24/2023) Medications Medication Sig Dispensed Refills Start Date End Date Status Clindamycin Phosphate 1 % External Lotion Apply to face every morning 180 mL 3 2 Active valACYclovir HCl 500 MG Oral Tablet (Valtrex) TAKE 1 TAB BY MOUTH DAILY. UNTIL FINISHED INDICATIONS: NEEDED FOR COLD SORES. 30 Tablet 5 2 Active Tretinoin 0.025 % External CreamIndications:Ac ne vulgaris Apply to clean and moisturized face every other night x 2-3 weeks and then increase to nightly as tolerated; apply to dry skin 135 g 3 2 Active tiZANidine HCl 4 MG Oral Tablet (Zanaflex)Indicatio ns:Myofascial pain syndrome, cervical Take 1 Tablet by mouth every 8 hours as needed for Muscle spasms. 90 Tablet 3 3 Active Additional Information Patient not taking.Reported on 07/24/2023 Gabapentin 300 MG Oral Capsule (Neurontin) Take by mouth 1 Capsule in by mouth 2 times per day 180 Capsule 3 3 Active Omeprazole 40 MG Oral Capsule Delayed Release (PriLOSEC)Indicatio ns:Gastroesophageal reflux disease without esophagitis TAKE 1 CAPSULE BY MOUTH IN THE MORNING AND 1 CAPSULE BEFORE BEDTIME 180 Capsule 3 3 Active FLUoxetine HCl 20 MG Oral Capsule (PROzac)Indications :Depression with anxiety Take 1 Capsule by mouth in the morning. 90 Capsule 3 3 Active Levothyroxine Sodium 50 MCG Oral Tablet (Levoxyl) Take 1 Tablet by mouth in the morning. 90 Tablet 3 3 Active Spironolactone 50 MG Oral Tablet (Aldactone)Indicati ons:Acne vulgaris Take 1 Tablet by mouth in the morning. 90 Tablet 1 3 Active Syringe Luer Lock 25G X 5/8" 3 MLIndications:Intes tinal postoperative nonabsorption For vitamin B12 injections 50 Each 0 3 Active NovoFine 32G X 6 MM (NOVOFINE 32G PEN NEEDLE)Indications: Obesity, Class II, BMI 35-39.9, isolated Use with Saxenda pen 50 Each 2 3 Active Additional Information Patient not taking.Reported on 07/24/2023 Cyanocobalamin 1000 MCG/ML Injection Solution (Cyanocobalamin)Ind ications:Vitamin B12 deficiency (dietary) anemia Inject 1,000 mcg into a large muscle every 30 days. 1 mL 11 3 Active traMADol HCl 50 MG Oral Tablet (Ultram)Indications :Kidney stone Take 1 Tablet by mouth every 8 hours as needed for Pain, Severe. 15 Tablet 0 3 Active Phenazopyridine HCl 200 MG Oral Tablet (Pyridium)Indicatio ns:Acute cystitis with hematuria Take 1 Tablet by mouth 3 times a day as needed for Pain, Moderate. After meals for pain with urination 10 Tablet 0 3 Active Additional Information Patient not taking.Reported on 07/24/2023 Norethindrone 0.35 MG Oral TabletIndications:M enorrhagia with irregular cycle,Primary dysmenorrhea,Encoun ter for surveillance of contraceptive pills Take 1 Tablet by mouth every evening. 84 Tablet 4 3 Active Ondansetron 4 MG Oral Tablet Disintegrating (Zofran) Place 1 Tablet on tongue every 8 hours as needed for Nausea. dissolve on tongue. 2 Tablet 0 4 Active Ondansetron HCl 4 MG Oral Tablet Take 1 Tablet by mouth every 8 hours as needed for Nausea. 12 Tablet 0 4 Active Wegovy 1.7 MG/0.75ML Subcutaneous Solution Auto-injector (Semaglutide-Weight Management) Inject 1.7 mg under the skin once a week for 28 days. 4 mL 0 4 08/21/19 24 Active Wegovy 2.4 MG/0.75ML Subcutaneous Solution Auto-injector INJECT 2.4 MG UNDER THE SKIN ONCE A WEEK 0 4 07/24/19 24 Discontinued documented as of this encounter (statuses as of 07/24/2023) Active Problems Problem Noted Date Diagnosed Date Moderate recurrent major depression 06/26/2020 DDD (degenerative disc disease), lumbar 11/19/19 Iron deficiency anemia following bariatric surge ry [...] of inactive term Calculus of kidney 12/15/2008 6 Overview: 12/10/08: bilat renal stones Other specified [...] Sign Reading Time Taken Comments Blood Pressure 122/70 07/24/2023 10:59 AM EST Pulse 94 07/24/2023 10:59 AM EST Temperature 36.4 C (97.5 F) 07/24/2023 10:[address] Respiratory Rate - - Oxygen Saturation - - Inhaled Oxygen Concentration - - Weight 85.7 kg (189 lb) 07/24/2023 10:59 AM EST Height 165.1 cm (5' 5") 07/24/2023 10:59 AM EST Body Mass Index 31.45 07/24/2023 10:59 AM EST documented in this encounter Progress Notes * Rachele Mike PA-C - 07/24/2023 11:06 AM EST [facility] Bariatric Surgery / Nutrition Post-operative Follow-Up s/p laprascopic Sleeve Gastrectomy Referring physician: Wei Laughlin PA-C Nursing Notes: Ebony King, MED ASSIST 07/24/23 1102 Sign at exiting of workspace Pt verified identity by last name and date. Chief Complaint Patient presents with Weight Management History of sleeve 11/2013. Pt is on chano Parker Hugo is a 38 year old female who presents in follow up to the comprehensive weight management clinic. 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 Velásquez on December 19, 2013 at [facility] - Weight at the time of the surgery 327 lbs -lowest weight after surgery 208 in 2017 Initial visit 02/09/22 235 Weight today 189 Weight has -35 pounds since last visit 01/16/23 Weight has decreased -46 pounds since initial visit - Wt Readings from Last 6 Encounters: 07/24/23 85.7 kg (189 lb) 06/28/23 90.7 kg (200 lb) 05/07/23 93.8 kg (206 lb 14.4 oz) 03/06/23 95.4 kg (210 lb 6.4 oz) 02/28/23 97 kg (213 lb 14.4 oz) 01/16/23 101.9 kg (224 lb 9.6 oz) - The patient is receiving dietary and physical activity instructions as part of their weight management treatment. 07/24/2023 -in clinic recheck wegovy 2.4 mg Valid auth start date: 06/11/23 Valid auth end date: 06/10/24 Was seen 06/28/23 in ED for vomiting Had vomiting again yesterday (lasted about 16 hours) 01/16/2023 -annual BOLD -on 3rd week of saxenda 3mg daily-- some nausea (started Saxenda 11/20/22) -doing really well 10/03/2022 -here for follow up -still having some reflux but she reports it is tolerable -she did have EGD 03/23/22 small hiatal hernia but otherwise okay -interested in starting wegovy-- she reports her insurance changed and she now has coverage Current recommended meal plan: Stage 4: Describes typical diet history/24 hr recall Breakfast:protein shake, tristanian yogurt, cream of wheat, scrambled egg Snacks: protein shake or tristanian yogurt, banana Lunch: chicken or turkey-- cooked, sometimes in a sandwich, apple, orage Snacks: raw veg, cheese, protein shake Dinner: meat, veg, baked potato Snacks: protein shake or yogurt with protein poweder Drinks: water Restaurant meals: once a week Patient is getting 60 grams of protein a day. Patient is getting 64 ounces of fluid a day. Compliance with meal plan: no Activity Level: limited currently Taking supplements as ordered for each of the following: MVI- bariatric advantage muti ea with iron Calcium- bariatric advantage 2 daily K10-eyipfji injections Vitamin D-none Vitamin B12 (pg/mL) Date Value 01/16/2023 436 11/19/2019 631 Psychosocial Adjustment Issues: No, no Issues with stress management Depression: Stable Taking medication Other Confirmed Mental Health Diagnosis: anxiety/panic disorder doing very well Alcohol Use: None Tobacco Use: Never Substance Abuse: None Patient Active Problem List Diagnosis Code Family history of breast cancer Z80.3 Family history of bladder cancer Z80.52 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 Anemia D64.9 Gastroesophageal reflux disease without esophagitis K21.9 Iron deficiency anemia following bariatric surgery K95.89, D50.8 DDD (degenerative disc disease), lumbar M51.36 Moderate recurrent major depression (HCC) F33.1 Hypertension: No BP Readings from Last 3 Encounters: 07/24/23 122/70 06/29/23 129/76 05/07/23 142/90 CHF: No CAD: No PVD: No Dyslipidemia: No CHOLESTEROL - [facility] Date/Time Value Ref Range Status 09/26/2022 12:30 PM 194 <200 mg/dL Final Comment: Total Cholesterol Reference Ranges (mg/dL): <200 Desirable 200-239 Borderline high >=240 High 02/14/2022 10:01 AM 201 (H) <200 mg/dL Final Comment: Total Cholesterol Reference Ranges (mg/dL): <200 Desirable 200-239 Borderline high >=240 High 09/06/2021 12:54 PM 183 <200 mg/dL Final Comment: Total Cholesterol Reference Ranges (mg/dL): <200 Desirable 200-239 Borderline high >=240 High 05/03/2018 01:58 PM 203 (H) <200 mg/dL Final Comment: TOTAL CHOLESTEROL REFERENCE RANGES(mg/dL) <200 DESIRABLE 200-239 BORDERLINE HIGH >239 HIGH 04/16/2013 01:16 PM 173 <200 mg/dL Final Comment: TOTAL CHOLESTEROL REFERENCE RANGES(mg/dL) <200 DESIRABLE 200-239 BORDERLINE HIGH >239 HIGH CHOLESTEROL-HDL RATIO - [facility] Date/Time Value Ref Range Status 05/03/2018 01:58 PM 4.2 Final 04/16/2013 01:16 PM 5.4 Final DVT/PE/ Coagulopathy: No Stroke: No Sleep Apnea: No Asthma: No COPD: No Polycystic Ovarian Syndrome: Yes Insulin Resistance: No Diabetes: No Lab Results Component Value Date/Time HEMOGLOBIN A1C - [facility] 4.9 01/16/2023 10:38 AM HEMOGLOBIN A1C - [facility] 5.2 05/03/2018 01:58 PM GERD: Yes: Requiring medications: Yes Liver Disease: NO History History of nephrolithiasis: Yes, multiple. Lab Results Component Value Date/Time CREATININE - [facility] 0.9 06/28/2023 08:45 PM CREATININE - [facility] 0.8 04/21/2019 12:17 PM CKD:No Osteoarthritis: Yes Musculoskeletal Disease: Yes, worse Patient has no known allergies. Current Outpatient Medications Medication Sig Dispense Refill Clindamycin Phosphate 1 % External Lotion Apply to face every morning 180 mL 3 valACYclovir HCl 500 MG Oral Tablet (Valtrex) TAKE 1 TAB BY MOUTH DAILY. UNTIL FINISHED INDICATIONS: NEEDED FOR COLD SORES. 30 Tablet 5 Tretinoin 0.025 % External Cream Apply to clean and moisturized face every other night x 2-3 weeks and then increase to nightly as tolerated; apply to dry skin 135 g 3 Gabapentin 300 MG Oral Capsule (Neurontin) Take by mouth 1 Capsule in by mouth 2 times per day 180 Capsule 3 Omeprazole 40 MG Oral Capsule Delayed Release (PriLOSEC) TAKE 1 CAPSULE BY MOUTH IN THE MORNING AND1 CAPSULE BEFORE BEDTIME 180 Capsule 3 FLUoxetine HCl 20 MG Oral Capsule (PROzac) Take 1 Capsule by mouth in the morning. 90 Capsule 3 Levothyroxine Sodium 50 MCG Oral Tablet (Levoxyl) Take 1 Tablet by mouth in the morning. 90 Tablet 3 Spironolactone 50 MG Oral Tablet (Aldactone) Take 1 Tablet by mouth in the morning. 90 Tablet 1 traMADol HCl 50 MG Oral Tablet (Ultram) Take 1 Tablet by mouth every 8 hours as needed for Pain, Severe. 15 Tablet 0 Norethindrone 0.35 MG Oral Tablet Take 1 Tablet by mouth every evening. 84 Tablet 4 Ondansetron 4 MG Oral Tablet Disintegrating (Zofran) Place 1 Tablet on tongue every 8 hours as needed for Nausea. dissolve on tongue. 2 Tablet 0 Ondansetron HCl 4 MG Oral Tablet Take 1 Tablet by mouth every 8 hours as needed for Nausea. 12 Tablet 0 Wegovy 2.4 MG/0.75ML Subcutaneous Solution Auto-injector INJECT 2.4 MG UNDER THE SKIN ONCE A WEEK tiZANidine HCl 4 MG Oral Tablet (Zanaflex) Take 1 Tablet by mouth every 8 hours as needed for Muscle spasms. (Patient not taking: Reported on 07/24/2023) 90 Tablet 3 Syringe Luer Lock 25G X 5/8" 3 ML For vitamin B12 injections 50 Each 0 NovoFine 32G X 6 MM (NOVOFINE 32G PEN NEEDLE) Use with Saxenda pen (Patient not taking: Reported on07/24/2023) 50 Each 2 Cyanocobalamin 1000 MCG/ML Injection Solution (Cyanocobalamin) Inject 1,000 mcg into a large muscleevery 30 days. 1 mL 11 Phenazopyridine HCl 200 MG Oral Tablet (Pyridium) Take 1 Tablet by mouth 3 times a day as needed for Pain, Moderate. After meals for pain with urination (Patient not taking: Reported on 07/24/2023) 10Tablet 0 No current facility-administered medications for this visit. REVIEW OF SYSTEMS: Review of Systems Constitutional: Positive for fatigue. Gastrointestinal: Positive for vomiting. Negative for abdominal pain, constipation and diarrhea. 2 episodes of vomiting 06/28/23 and yesterday-- no abdominal pain Psychiatric/Behavioral: Negative for dysphoric mood. The patient is not nervous/anxious. All other systems reviewed and are negative. Back Pain: Yes, Sxs requiring non-narcotic meds Functional Status: NO Impairment Reproductive Menstrual Cycle: Yes, menorrhagia Control: Yes OCPs--thinking about switching to iud; she does use condoms for contraception inaddition to OCPs PHYSICAL EXAMINATION: BP 122/70 | Pulse 94 | Temp 36.4 C (97.5 F) (Temporal Artery) | Ht 1.651 m (5' 5") | Wt 85.7 kg(189 lb) | LMP 06/28/2023 | BMI 31.45 kg/m | BSA 1.98 m Physical Exam Vitals and nursing note reviewed. Constitutional: Appearance: Normal appearance. Cardiovascular: Rate and Rhythm: Normal rate. Pulmonary: Effort: Pulmonary effort is normal. No respiratory distress. Neurological: Mental Status: She is alert and oriented to person, place, and time. Psychiatric: Mood and Affect: Mood normal. Assessment/Plan: S/P Sleeve Gastrectomy Surgery: Doing very well overall. Will continue with current meal plan. MVI- bariatric advantage muti ea with iron Calcium- bariatric advantage 2 daily U13-uaqwust injections Vitamin D-none-- getting sufficient vitamin D from bariatric advantage vitamins GOALS IMPORTANT DIETARY CHANGES WHEN TAKING INJECTABLE WEIGHT LOSS MEDICATION PROTEIN!! PROTEIN!! PROTEIN!! Not getting enough protein can contribute to hair thinning, hair loss, muscle loss and fatigue. -Minimum 60g protein per day -Aim for 20g protein per meal -Daily protein goal 60g-100g Work to eat small portions-- larger portions can lead to indigestion, nausea, vomiting, sulfur burps. - Do NOT skip meals--eat small frequent meals/snacks throughout the day - Eat slowly--take 20-30 minutes for each meal - Chew food thoroughly (to applesauce consistency) -Try eating and drinking by 30 min if struggling with intake Foods high in sugar and carbohydrates can lead to diarrhea. - Avoid sugar sweetened drinks including regular sodas, sweet tea, and fruit juice - Eat foods high in lean protein, vegetables, fruits, fiber, & whole grains - Limit processed foods, excess sugar, refined/white carbs, & fried foods Trisha was seen today for weight management. Diagnoses and all orders for this visit: Vomiting -2 episodes of vomiting 06/28/23-- was seen in the ED. Minimally elevated lipase, normal pancreas on imaging and no abdominal pin LFTs normal, GB normal on CT-- no abdominal pain ? Etiology of the vomiting Decrease wegovy to 1.7mg weekly Consider stopping if vomiting recurs or if any abdominal pain Recheck labs Patient advised of potential for pancreatitis, cholecystitis Obesity, Class II, BMI 35-39.9, isolated Decrease wegovy to 1.7mg weekly Intestinal postoperative nonabsorption Recheck labs due to fatigue Plan CBC with WBC Differential Iron Screen, Including TIBC Ferritin 25-Hydroxy Vitamin D Vitamin B12 Phosphorus Lipase Comprehensive Metabolic Panel Wegovy 1.7 MG/0.75ML Subcutaneous Solution Auto-injector (Semaglutide-Weight Management) Gastroesophageal reflux disease, unspecified whether esophagitis present -no longer taking NSAIDs -taking omeprazole -reflux has improved -had EGD Kidney stone Reports h/o multiple kidney stones Encouraged min 64 ounces non caffeinated beverages Saw stone clinic Iron deficiency anemia due to chronic blood loss Seeing hematology Has not needed transfusions Menses improved with the GLP-1 Getting iron from the MVI Recheck iron labs Moderate recurrent major depression (HCC) Continue fluoxetine Acquired hypothyroidism Continue levothyroxine TSH Results: Lab Results Component Value Date/Time TSH - [facility] 1.24 09/26/2022 12:30 PM TSH - [facility] 1.39 09/06/2021 12:54 PM TSH - [facility] 1.19 08/31/2020 11:34 AM TSH - [facility] 2.12 05/11/2020 04:04 PM TSH - [facility] 1.24 12/31/2018 04:24 PM TSH - [facility] 1.66 05/03/2018 01:58 PM The patient will return to the weight management clinic in [address], 6 months with me . She was instructed to call in the meantime with any concerns or questions prior to her next clinic visit. I spent a total of 31 minutes on the date of service in preparation, delivery, and documentation ofthe care provided to Trisha Arias excluding any time spent in the performance of separately billed services.This included but was no limited to providing counseling about the benefits of weight loss, about their nutritional status, detailed explanations about calorie count, types of nutrients to choose, and composition of the meals. Motivational interview provided in order to prepare the patient to achieve future goals. Rachele Mike PA-C, [facility] Nutrition and Weight Management [facility] ([facility]) documented in this encounter Nursing Notes * Ebony King MED ASSIST - 07/24/2023 11:02 AM EST Pt verified identity by last name and date. Chief Complaint Patient presents with Weight Management History of sleeve 11/2013. Pt is on wegovy documented in this encounter Plan of Treatment Upcoming Encounters Date Type Department Care Team (Late st Contact Info) Description 07/25/2023 12:00 PM EST Office Visit Interventional Pain Center, [facility] [address] [place] [address] Taiwo Garcia CRNP [address] [facility] [place] [address] 10/09/2023 4:20 PM EDT Office Visit [facility] [address] [facility] [place] [phone] Wei Laughlin PA-C [address] [facility] [address] 10/24/2023 10:00 AM EDT Nutrition Services Nutrition & Weight Management, [facility] [address] [place] [address] Lorelei Munoz RDN [address] [place] [address] 11/13/2023 1:10 PM EDT Office Visit Dermatology [facility] [place] [address] [place] [address] Ruth Ann Teran PA-C [address] [place] [address] 02/06/2024 11:20 AM EDT Office Visit Nutrition & Weight Management, [facility] [address] [place] [address] Rachele Mike PA-C [address] [place] [address] 05/08/2024 9:20 AM EST Office Visit [place] [address] [address] [place] [address] Stefanie Avila PAMaricel [address] [place], [place] [address] [address] [place] [address] Pending Results Name Type Priority Associated Diagnoses Date /Time IRON SCREEN, INCLUDING TIBC Lab Routine Intestinal [...] unspecified vomiting type 07/24/2023 11:48 AM EST Scheduled Orders Name Type Priority Associated Diagnoses Orde r Schedule IRON SCREEN, INCLUDING TIBC Lab Routine Intestinal postoperative nonabsorption Expected: 07/24/2023 (Approximate), Expires: 01/22/2024 FERRITIN Lab Routine Intestinal postoperative nonabsorption Expected: 07/24/2023 (Approximate), Expires: 01/22/2024 25-HYDROXY VITAMIN D Lab Routine Intestinal postoperative nonabsorption Expected: 07/24/2023 (Approximate), Expires: 01/22/2024 VITAMIN B12 Lab Routine Intestinal postoperative nonabsorption Expected: 07/24/2023 (Approximate), Expires: 01/22/2024 PHOSPHORUS Lab Routine Nausea and vomiting, unspecified vomiting type Expected: 07/24/2023, Expires: 07/24/2024 LIPASE Lab Routine Nausea and vomiting, unspecified vomiting type Expected: 07/24/2023, Expires: 07/24/2024 COMPREHENSIVE METABOLIC PANEL Lab Routine Nausea and vomiting, unspecified vomiting type Expected: 07/24/2023, Expires: 07/24/2024 Health Maintenance Due Date Last Done Comments Hepatitis B (1 of 3 - 19+ 3-dose series) 2005 COVID-19 Vaccine (2022- season) 2023 TSH 09/27/2023 09/26/2022, 08/26, 08/31/2020, [...] Not on filedocumented as of this encounter Visit Diagnoses Diagnosis Intestinal postoperative nonabsorption- Primary Other and unspecified postsurgical nonabsorption Nausea and vomiting, unspecified vomiting type documented in this encounter Care Teams Division Toll Wire Chief Relationship Specialty Start Date End Date Wei Laughlin PA-C [address] [place] [id number] PCP - General Physician Order Manager 03/07/16 documented as of this encounter
--- OUTSIDE RECORDS SUMMARY | 2023-07-29 04:49 | External Medical Summary ---
Author Name Unknown Address Unknown Organization K1F:[facility] - [address] [place] [address] Laboratory Report Ordering Provider Test Date Status ALEXANDRIA RAMOS 07/25/2023 08:38:49 Final Observation Date Value Abnormality Reference (Units ) Status SYNC LEUKOCYTES IN BLOOD BY AUTOMATED COUNT 07/25/2023 08:38:49 12.72 Above high normal 4.00-10.80 (K/uL) Final Segs 07/25/2023 08:38:49 76.8 Above high normal 40.0-75.0 (%) Final Lymphs % 07/25/2023 08:38:49 15.7 Below low normal 18.0-42.0 (%) Final Monos 07/25/2023 08:38:49 6.8 1.0-11.0 (%) Final Eosinophils 07/25/2023 08:38:49 0.1 0.0-6.0 (%) Final Basos 07/25/2023 08:38:49 0.4 0.0-2.0 (%) Final Immature Granulocyte, Percent 07/25/2023 08:38:49 0.2 0.0-2.0 (%) Final Absolute Segs 07/25/2023 08:38:49 9.76 Above high normal 1.80-7.70 (K/uL) Final Lymphs, absolute 07/25/2023 08:38:49 2.00 1.00-4.80 (K/ul) Final Monos, Abs 07/25/2023 08:38:49 0.87 0.00-1.10 (K/uL) Final Eos, Abs 07/25/2023 08:38:49 0.01 0.00-0.70 (K/uL) Final Basos, Abs 07/25/2023 08:38:49 0.05 0.00-0.20 (K/uL) Final Immature Granulocytes, Number 07/25/2023 08:38:49 0.03 0.00-0.20 (K/uL) Final Performing Location [facility] [address] [facility] [place] [id number]
--- OUTSIDE RECORDS SUMMARY | 2023-07-29 04:49 | External Medical Summary ---
Author Name Unknown Address Unknown Organization K1F:[facility] - [address] [place] [address] Laboratory Report Ordering Provider Test Date Status RADHA MENSAH 06/28/2023 23:46:29 Final Observation Date Value Abnormality Reference (Units ) Status Lactic Acid 06/28/2023 23:46:29 3.7 Above high normal 0.4-2.0 (mmol/L) Final Performing Location [facility] - [address] [place] [address]
--- OUTSIDE RECORDS SUMMARY | 2023-07-29 04:49 | External Medical Summary ---
Author Name Unknown Address Unknown Organization K1F:[facility] - [address] [place] [address] Laboratory Report Ordering Provider Test Date Status JUAN CARLOS RAMOSNEY 07/25/2023 08:38:49 Final Observation Date Value Abnormality Reference (Units ) Status Bilirubin, Direct 07/25/2023 08:38:49 0.2 0. 0-0.3 (mg/dL) Final Performing Location [facility] - [address] [place] [address]
--- OUTSIDE RECORDS SUMMARY | 2023-07-29 04:49 | External Medical Summary ---
Author Name Unknown Address Unknown Organization K1F:[facility] - [place] [address] Laboratory Report Ordering Provider Test Date Status JUAN CARLOS RAMOSNEY 07/25/2023 08:38:49 Final Observation Date Value Abnormality Reference (Units ) Status Troponin T 07/25/2023 08:38:49 <6 <=14 (ng/ L) Final Performing Location [facility] - [address] [place] [address]
--- OUTSIDE RECORDS SUMMARY | 2023-07-29 04:49 | External Medical Summary | Summary of Care ---
Author Name Unknown Organization [facility] Address [address] [address] Phone [phone] Care Team Providers Care Oil Heater Operator Name Role Phone Wei Laughlin PA-C Primary Care Provider [phone] Reason for Visit * Reason Onset Date Comments Med Request 07/04/2023 Cyanocobalamin 1 000 MCG/ML Injection to be refilled Encounter Details Date Type Department Care Team (Late st Contact Info) Description 07/04/2023 Telephone Hematology/Oncology, [address] [address] Collins Bales MD [address] [place] [address] Med Request (Cyanocobalamin 1000 MCG/ML In... Allergies No known active allergiesdocumented as of this encounter (statuses as of 07/04/2023) Medications Medication Sig Dispensed Refills Start Date [...] 01/17/2023 Active Cyanocobalamin 1000 MCG/ML Injection Solution (Cyanocobalamin)Sanna cations:Vitamin [...] 0 03/08/2023 Active Norethindrone 0.35 MG Oral TabletIndications:Me norrhagia with [...] for Nausea. 12 Tablet 0 2023 Active documented as of this encounter (statuses as of 07/04/2023) Active Problems Problem Noted Date Diagnosed Date [...] as of this encounter (statuses as of 07/04/2023) Resolved Problems Problem Noted Date Diagnosed Date [...] as of this encounter (statuses as of 07/04/2023) Immunizations Name Administration Dates Next Due H1N1 2009 Influenza, IM 06/22/2009 HPV Vaccine, 4-Valent 01/14/2008,09/16/2007,06/28 Seasonal Influenza, PF, 6 M & above, IM , (FluLaval or Fluzone) 04/17/2023,04/12/2022,03/22/2021 Seasonal Influenza, Quadriva lent, No Preserve, IM 05/07/2020,04/14/2020,03/17/2019 Seasonal Influenza, Split, I IV3, With Preserve, Inj 04/17/2014,02/03/2013,03/08/2012,2009,06/22/2009,04/15/2008 TD, Preservative Free 03/17/2019 TDAP (age 12 [...] on file documented as of this encounter Miscellaneous Notes * Telephone Encounter - Kimberley Lee LPN - 07/04/2023 3:32 PM EST Duplicate request. Previous script 01/22/23 with 11 refills * Telephone Encounter - Teri Chu OSA - 07/04/2023 3:16 PM EST Received refill request via fax from [facility] [place] Cyanocobalamin 1000 MCG/ML Injection documented in this encounter Plan of Treatment Upcoming Encounters Date Type Department Care Team (Late st Contact Info) Description 07/10/2023 3:15 PM EST Appointment Radiology, [place] [address] [address] 07/24/2023 11:00 AM EST Office Visit Nutrition & Weight Management, [facility] [place] [address] Rachele Mike PA-C 132 [facility] [place] [address] 10/09/2023 4:20 PM EDT Office Visit [facility] [address] [phone] Wei Laughlin PA-C [address] [address] 11/13/2023 1:10 PM EDT Office Visit Dermatology [facility] [place] [address] [facility] [place] [address] Ruth Ann Teran PA-C [address] [facility] [place] [address] 05/08/2024 9:20 AM EST Office Visit [address] [place] [address] Stefanie Avila PA-C [address] [facility] [address] [place] [address] Health Maintenance Due Date Last Done Comments [...] Not on filedocumented as of this encounter Care Teams Oil Heater Operator Relationship Specialty Start Date End Date Wei Laughlin PA-C [address] [address] PCP - General Physician Telephone Assembler 03/07/16 documented as of this encounter
--- OUTSIDE RECORDS SUMMARY | 2023-07-29 04:49 | External Medical Summary ---
Author Name Unknown Address Unknown Organization K01:LABORATORY [facility] - [address] [place] [address] Laboratory Report Ordering Provider Test Date Status KATE HARO 07/24/2023 11:48:38 Final Observation Date Value Abnormality Reference (Units ) Status Iron 07/24/2023 11:48:38 119 33-151 (ug /dL) Final Iron-binding capacity 07/24/2023 11:48:38 328 250-425 (ug/dL) Final Transferrin Sat % 07/24/2023 11:48:38 36 15 -55 (%) Final Performing Location LABORATORY C - [address] [place] [address]
--- OUTSIDE RECORDS SUMMARY | 2023-07-29 04:49 | External Medical Summary ---
Author Name Unknown Address Unknown Organization K1F:LABORATORY [facility] - [address] [place] [address] Laboratory Report Ordering Provider Test Date Status ALEXANDRIA RAMOS 07/25/2023 13:45:00 Final Observation Date Value Abnormality Reference (Units ) Status Lactic Acid 07/25/2023 13:45:00 1.9 0.4-2.0 (mmol/L) Final Performing Location LABORATORY [facility] - [address] [place] [address]
--- OUTSIDE RECORDS SUMMARY | 2023-07-29 04:49 | External Medical Summary | Summary of Care ---
Author Name Unknown Organization [facility] Address [address] [facility] [place] [address] Phone [phone] Care Team Providers Care Language And Literature Division Chair Name Role Phone Wei Laughlin PA-C Primary Care Provider [phone] Reason for Visit * Reason Onset Date Comments Medication Refill 2023 Encounter Details Date Type Department Care Team (Late st Contact Info) Description 2023 Refill Hematology/Oncology, [address] [address] Collins Bales MD [address] [place], [place] [id number] Vitamin B12 deficiency (dietary) anemia Allergies No known active allergiesdocumented as of [...] encounter Miscellaneous Notes * Telephone Encounter - Iva Stanley RN - 2023 8:49 AM ESTRefused Prescriptions: Disp Refills Cyanocobalamin 1000 MCG/ML Injection Solut*1 mL 11 Sig: Inject 1,000 mcg into a large muscle every 30 days.Refused By: IVA STANLEY MReason for Refusal: Duplicate Request * Telephone Encounter - Iva Stanley RN - 2023 8:48 AM EST Duplicate request. Previous script 01/22/23 with 11 refills * Telephone Encounter - Irma Rahman OSA - 2023 7:10 AM EST Did you pend patient's preferred pharmacy and medication before forwarding?yes Pharmacy: [id number] [address] [facility] Last Visit: 11/21/2022 (in office), Visit date not found (telemedicine) Next Visit: Visit date not found If no future appointments scheduled, and last appointment is greater than a year ago, please schedule patient for a follow-up appointment Last date the medication was ordered: 01/22/2023 Is this request for a controlled substance?No Urine Drug Screen:No results found for this or any previous visit. Patient Phone Numbers Labs: Lab Results Component Value Date/Time CREAT 0.9 06/28/2023 08:45 PM CREAT 0.8 04/21/2019 12:17 PM POTASSIUM 3.3 (L) 06/28/2023 08:45 PM POTASSIUM 4.3 04/21/2019 12:17 PM TSH 1.24 09/26/2022 12:30 PM TSH 2.12 05/11/2020 04:04 PM LDLCALC 126 09/26/2022 12:30 PM LDLCALC 133 (H) 05/03/2018 01:58 PM LDLDIRECT 113 03/07/2017 08:48 AM ALT 8 (L) 06/28/2023 08:45 PM ALT 5 (L) 04/21/2019 12:17 PM HGBA1C 4.9 01/16/2023 10:38 AM HGBA1C 5.2 05/03/2018 01:58 PM documented in this encounter Plan of Treatment Upcoming Encounters Date Type Department Care Team (Late st Contact Info) Description 07/10/2023 3:15 PM EST Appointment Radiology, [place] [address] [address] 07/24/2023 11:00 AM EST Office Visit Nutrition & Weight Management, [facility] 132 [facility] [place] [address] Rachele Mike PA-C 132 [facility] [place] [address] 10/09/2023 4:20 PM EDT Office Visit Family [facility], [place] [address] [phone] Wei Laughlin PA-C [address] [address] 11/13/2023 1:10 PM EDT Office Visit Dermatology [facility] [address] [facility] [place] [address] Ruth Ann Teran PA-C [address] [facility] [place] [address] 05/08/2024 9:20 AM EST Office Visit Family [place] [address] [address] [facility] [address] Stefanie Avila PA-C [address] [place] [address] Health Maintenance Due Date Last Done Comments [...] as of this encounter Visit Diagnoses Diagnosis Vitamin B12 deficiency (dietary) anemia Other vitamin B12 deficiency anemia documented in this encounter Care Teams Language And Literature Division Chair Relationship Specialty Start Date End Date Wei Laughlin PA-C [address] [phone] PCP - General Physician Nanotechnology Engineering Technician 03/07/16 documented as of this encounter
--- OUTSIDE RECORDS SUMMARY | 2023-07-29 04:49 | External Medical Summary ---
Author Name Unknown Address Unknown Organization K1F:LABORATORY [facility] - [address] [address] Laboratory Report Ordering Provider Test Date Status JUAN CARLOS RAMOSNEY 07/25/2023 08:38:49 Final Observation Date Value Abnormality Reference (Units ) Status Lipase 07/25/2023 08:38:49 78 Above high normal 13 -60 (U/L) Final Performing Location LABORATORY [facility] - [address] [address]
--- OUTSIDE RECORDS SUMMARY | 2023-07-29 04:49 | External Medical Summary | Summary of Care ---
Author Name Unknown Organization [facility] Address [address] [facility] [address] Phone [phone] Care Team Providers Care Mold Maker Apprentice Name Role Phone Wei Laughlin PA-C Primary Care Provider [phone] Reason for Visit * Reason Onset Date Comments Med Request 07/04/2023 Cyanocobalamin 1 000 MCG/ML Injection to be refilled Encounter Details Date Type Department Care Team (Late st Contact Info) Description 07/04/2023 Telephone Hematology/Oncology, [address] [address] Collins Bales MD [address] [place] [address] Med Request (Cyanocobalamin 1000 MCG/ML [...] EST Received refill request via fax from [facility] [place] Cyanocobalamin 1000 MCG/ML Injection documented in this encounter Plan of Treatment Upcoming Encounters Date Type Department Care Team (Late st Contact Info) Description 07/10/2023 3:15 PM EST Appointment Radiology, [place] [address] [address] 07/24/2023 11:00 AM EST Office Visit Nutrition & Weight Management, [facility] [place] [address] Rachele Mike PA-C 132 [facility] [place] [address] 10/09/2023 4:20 PM EDT Office [facility] [address] [phone] Wei Laughlin PA-C [address] [place] [address] 11/13/2023 1:10 PM EDT Office Visit Dermatology [place], [place] [address] [facility] [place] [address] Ruth Ann Teran PA-C [address] [place] [address] 05/08/2024 9:20 AM EST Office Visit [address] [place] [address] Stefanie Avila PA-C [address] [facility] [address] [place] [address] Health Maintenance Due Date Last Done Comments [...] filedocumented as of this encounter Care Teams Mold Maker Apprentice Relationship Specialty Start Date End Date Wei Laughlin PA-C [address] [address] PCP - General Physician Gut Cleaner 03/07/16 documented as of this encounter
--- OUTSIDE RECORDS SUMMARY | 2023-07-29 04:49 | External Medical Summary ---
Author Name Unknown Address Unknown Organization K01:[facility] [place] [address] [place] [address] Laboratory Report Ordering Provider Test Date Status JERROD GODOY 07/24/2023 11:48:38 Final Observation Date Value Abnormality Reference (Units ) Status MYCODE SPECIMEN-SST 07/24/2023 11:48:38 Freezing of extracted DNA, whole blood and/or serum. Final Performing Location LABORATORY C - [address] [place] [address]
--- OUTSIDE RECORDS SUMMARY | 2023-07-29 04:49 | External Medical Summary ---
Author Name Unknown Address Unknown Organization K01:LABORATORY [facility] - [address] [place] [address] Laboratory Report Ordering Provider Test Date Status KATE HARO 07/24/2023 11:48:38 Final Observation Date Value Abnormality Reference (Units ) Status Vitamin B12 07/24/2023 11:48:38 648 590-5309 (pg/mL) Final Performing Location LABORATORY [facility] - [address] [place] [address]
[2023-07-29] MEDS ORDERED: ACETAMINOPHEN 325 MG TAB PO PRN (04:50)
[2023-07-29] MEDS ORDERED: PROMETHAZINE HCL 12.5 MG in SODIUM CHLORIDE 0.9% 50 ML IV PRN (04:50)
--- OUTSIDE RECORDS SUMMARY | 2023-07-29 04:50 | External Medical Summary | Summary of Care ---
Author Name Unknown Organization [facility] Address [address] [facility] [place] [address] Phone [phone] Care Team Providers Care Boom Tender Name Role Phone Wei Laughlin PA-C Primary Care Provider [phone] Reason for Visit * Reason Comments PAP Encounter Details Date Type Department Care Team (Late st Contact Info) Description 05/07/2023 9:20 AM EST Office Visit [address] [place] [id number] Stefanie Avila PA-C [facility] [address] [place] [phone] Pap smear for cervical cancer screening*; Menorrhagia with irregular cycle; Primary dysmenorrhea; Encounter for surveillance of contraceptive pills; Encounter for screening mammogram for breast cancer; Family history of breast cancer; Vaginal discharge Allergies No known active allergiesdocumented as of this encounter (statuses as of 05/09/2023) Medications Medication Sig Dispensed Refills Start Date [...] 30 days. 1 mL 11 01/22/2023 Active Ondansetron 4 MG Oral Tablet Disintegrating (Zofran) Place 1 Tablet on tongue every 8 hours as needed for Nausea. dissolve on tongue. 20 Tablet 0 02/14/2023 Active traMADol HCl 50 MG Oral Tablet [...] every evening. 84 Tablet 4 05/07/2023 Active Norethindrone 0.35 MG Oral TabletIndications:M enorrhagia with irregular cycle,Primary dysmenorrhea,Encoun ter for surveillance of contraceptive pills Take by mouth 1 Tablet in the morning. 84 Tablet 4 12/16/2021 05/07/20 23 Discontinu ed(Refill) documented as of this encounter (statuses as of 05/09/2023) Active Problems Problem Noted Date Diagnosed Date [...] as of this encounter (statuses as of 05/09/2023) Resolved Problems Problem Noted Date Diagnosed Date [...] as of this encounter (statuses as of 05/09/2023) Immunizations Name Administration Dates Next Due H1N1 [...] Sign Reading Time Taken Comments Blood Pressure 142/90 05/07/2023 9:15 AM EST Pulse 88 05/07/2023 9:15 AM EST Temperature 36.5 C (97.7 F) 05/07/2023 9:15 AM ES T Respiratory Rate 18 05/07/2023 9:15 AM EST Oxygen Saturation 99% 05/07/2023 9:15 AM EST Inhaled Oxygen Concentration - - Weight 93.8 kg (206 lb 14.4 oz) 05/07/2023 9:15 AM EST Height - - Body Mass Index 34.43 01/16/2023 9:50 AM EDT documented in this encounter Progress Notes * Stefanie Avila PA-C - 05/07/2023 9:38 AM EST Subjective: Trisha Arias is a 37 year old female. Chief Complaint Patient presents with PAP HPI: Patient presents for gynecological exam. G0. States she is doing well. Started with think white/yellow discharge yesterday. Mild itching. Menses: Irregular Contraception: Minipill Sexually Active: Yes Family history of breast cancer in paternal grandmother and paternal first cousin. Youngest cousin diagnosed at 42. Never had genetic testing. Plans to discuss with family and will contact office if she wishes to pursue testing. 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 UNTIL FINISHED INDICATIONS: NEEDED FOR COLD SORES. 30 Tablet 5 Norethindrone 0.35 MG Oral Tablet Take by mouth 1 Tablet in the morning. (Patient taking differently: Take 1 Tablet by mouth every evening.) 84 Tablet 4 Tretinoin 0.025 % External Cream Apply to clean and moisturized face every other night x 2-3 weeks and then increase to nightly as tolerated; apply to dry skin 135 g 3 tiZANidine HCl 4 MG Oral Tablet (Zanaflex) Take 1 Tablet by mouth every 8 hours as needed for Muscle spasms. 90 Tablet 3 Gabapentin 300 MG Oral Capsule (Neurontin) [...] mouth in the morning. 90 Tablet 1 Syringe Luer Lock 25G X 5/8" 3 ML For vitamin B12 injections 50 Each 0 NovoFine 32G X 6 MM (NOVOFINE 32G PEN NEEDLE) Use with Saxenda pen 50 Each 2 Cyanocobalamin 1000 MCG/ML Injection Solution (Cyanocobalamin) Inject 1,000 mcg into a large muscleevery 30 days. 1 mL 11 Ondansetron 4 MG Oral Tablet Disintegrating (Zofran) Place 1 Tablet on tongue every 8 hours as needed for Nausea. dissolve on tongue. 20 Tablet 0 traMADol HCl 50 MG Oral Tablet (Ultram) Take 1 Tablet by mouth every 8 hours as needed for Pain, Severe. 15 Tablet 0 Phenazopyridine HCl 200 MG Oral Tablet (Pyridium) Take 1 Tablet by mouth 3 times a day as needed for Pain, Moderate. After meals for pain with urination 10 Tablet 0 No current facility-administered medications for this visit. 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 Possibly increased risk of point development of Malignant Melanoma within such a lesion Although the true risk is likely low Prophylactic excision is a consideration But would probably be quite mutilating Could have evaluated and get opinion from Plastic Surgeon Jamie Reynolds MD 01/12/2016 11:26 PM Esophageal reflux Family history of bladder cancer 01/09/2012 Family history of breast cancer 01/09/2012 Major depressive disorder 09/28/2010 ICD-10 update of inactive term Osteoarthrosis involving, or with mention of more than one site, but not specified as generalized, site unspecified(715.80) Past Surgical History: Procedure Laterality Date EGD, FLEXIBLE, DIAGNOSTIC 03/23/2022 z-line regular 35 cm from incisors, 3cmm HH / biopsies normal / ESOPHAGOGASTRODUODENOSCOPY (EGD), FLEXIBLE, TRANSORAL, DIAGNOSTIC performed by Rosa Tate DO at ENDOSCOPY [facility] INJECT DX/THER SUBSTANCE INTERLAMINAR CERVICAL/THORACIC W IMAGE GUIDE N/A 12/22/2021 INJECTION SPINE LUMBAR CERVICAL OR THORACIC performed by Elia Sanchez MD at OR [facility] INJECT DX/THER SUBSTANCE INTERLAMINAR LUMBAR/SACRAL W IMAGE GUIDE N/A 09/05/2018 INJECTION SPINE LUMBAR OR SACRAL performed by Margarita Metcalf MD at OR [facility] INJECT DX/THER SUBSTANCE INTERLAMINAR LUMBAR/SACRAL W IMAGE GUIDE N/A 12/25/2019 INJECTION SPINE LUMBAR OR SACRAL performed by Margarita Metcalf MD at OR [facility] INJECT DX/THER SUBSTANCE INTERLAMINAR LUMBAR/SACRAL W IMAGE GUIDE 09/30/2020 INJECTION SPINE LUMBAR OR SACRAL performed by David Woodward DO at OR [facility] L-/S-SPINE PARAVERTEBRAL FACET INJ,1 LEVEL Right 10/04/2018 L-/S-SPINE PARAVERTEBRAL FACET INJ, 1 LEVEL performed by Margarita Metcalf MD at OR [facility] L-/S-SPINE PARAVERTEBRL FACET INJ,2 LEVELS Right 10/04/2018 L-/S-SPINE PARAVERTEBRAL FACET INJ, 2 LEVELS performed by Margarita Metcalf MD at OR [facility] L-/S-SPINE PARAVERTEBRL FACET INJ,3 LEVELS Right 10/04/2018 L-/S-SPINE PARAVERTEBRAL FACET INJ, 3 OR MORE LEVELS performed by Margarita Metcalf MD at OR [facility] MRI L SPINE W WO CONTRAST 02/20/2011 Mild early degenerative changes at L4-L5. NAIL BED, PERMANENT REMOVAL Bilateral 2016 EXCISION NAIL PARTIAL OR COMPLETE INGROWN performed by Priscila Brantley DPM at OR [facility] PFT/BA BRONCHODILATOR 09/30/2021 normal SLEEVE GASTRECTOMY, LAPROSCOPY 12/19/2013 Review of patient's allergies indicates: No Known Allergies Family History Problem Relation Age of Onset Hypertension Father Breast Cancer Grandmother (Paternal) Cancer Grandmother (Paternal) bladder Skin cancer Grandfather (Paternal) Bone cancer Grandfather (Paternal) Family Status Relation Status Mo Alive Sis Alive Sis Alive Sis Alive Fa Alive PGMA (Not Specified) PGFA (Not Specified) Social History Tobacco Use Smoking status: Never Smokeless tobacco: Never Substance Use Topics Alcohol use: No Vaping/E-Cigarette Use Vaping/E-Cigarette Use Never User Vaping/E-Cigarette Substances Vaping/E-Cigarette Devices Review of Systems: All reviewed and negative unless mentioned in HPI. Objective: BP 142/90 | Pulse 88 | Temp 36.5 C (97.7 F) | Resp 18 | Wt 93.8 kg (206 lb 14.4 oz) | LMP 02/23/2023 (Exact Date) Comment: She staes that she has irregular periods | SpO2 99% | BMI 34.43 kg/m |BSA 2.07 m Physical Exam: General: alert, healthy, and no distress Neck: supple, no adenopathy, thyroid normal size, non-tender, without nodularity Heart: regular rate & rhythm, no murmur, and no gallops Lungs: clear to auscultation Pulses: radial=2/4 Abdomen: abdomen soft, non-tender, and normal bowel sounds Breasts: Inspection negative, No nipple retraction or dimpling, No nipple discharge or bleeding, Noaxillary or supraclavicular adenopathy, Normal to palpation without dominant masses Pelvic Exam: External genitalia and vagina anatomy within normal limits, No significant vulvar lesions, + thin light yellow stringy vaginal discharge, Cervix normal in appearance without lesions or purulent discharge, Uterus is normal size, shape, and consistency, Adnexea normal bilaterally. No abnormal pelvic masses, Pap obtained with broom Skin: skin color, texture, turgor are normal, no rashes or significant lesions ASSESSMENT/PLAN: Pap smear for cervical cancer screening (Primary) - INSURANCE POLICY CLERK PAP SCREEN Menorrhagia with irregular cycle Primary dysmenorrhea Encounter for surveillance of contraceptive pills - Norethindrone 0.35 MG Oral Tablet; Take 1 Tablet by mouth every evening. Encounter for screening mammogram for breast cancer - MAMMOGRAM SCREENING DEBBIE BILATERAL; Future; Expected date: 05/07/2023 Family history of breast cancer - MAMMOGRAM SCREENING DEBBIE BILATERAL; Future; Expected date: 05/07/2023 Vaginal discharge - VAGINOSIS PANEL, PCR; Future; Expected date: 05/07/2023 - CHLAMYDIA TRACHOMATIS AND NEISSERIA GONORRHOEAE, AMPLIFIED PROBE; Future; Expected date: 05/07/2023 - TRICHOMONAS VAGINALIS, AMPLIFIED PROBE; Future; Expected date: 05/07/2023 Follow Up: Return in about 6 months (around 11/06/2023) for Physical. Stefanie Avila PA-C documented in this encounter Nursing Notes * Janie Coronado LPN - 05/07/2023 8:57 AM EST Chief Complaint Patient presents with PAP Trisha Arias is a 37 year old female who presents to clinic today for Pap. documented in this encounter Miscellaneous Notes * Result Encounter Note - Yi Byrne RN - 05/09/2023 9:34 AM EST Reason for Call: PAP Contact: Anamika Hernandez Contact Type: Test Results Outcome: MyG sent. Face to face time spent with Patient (minutes): 0 Total Time including non face to face (minutes): 10 documented in this encounter Plan of Treatment Upcoming Encounters Date Type Department Care Team (Late st Contact Info) Description 07/10/2023 3:15 PM EST Appointment Radiology, [place] [address] [place] [id number] 07/24/2023 11:00 AM EST Office Visit Nutrition & Weight Management, [facility] [address] [address] Rachele Mike PA-C [address] [address] 10/09/2023 4:20 PM EDT Office Visit [facility] [address] [phone] Wei Laughlin PA-C [address] [place] [address] 11/13/2023 1:10 PM EDT Office Visit Dermatology [facility] [place], [place] [address] [place] [address] Ruth Ann Teran PA-C [address] [place] [address] 05/08/2024 9:20 AM EST Office Visit [place] [address] [address] [place] [address] Stefanie Avila PA-C [address] [place] [address] [place] [phone] Pending Results Name Type Priority Associated Diagnoses Date /Time INSURANCE POLICY CLERK PAP SCREEN Pathology Routine Pap smear for cervical cancer screening 05/07/2023 10:07 AM EST HUMAN PAPILLOMA VIRUS, PROBE Lab Routine Pap smear for cervical cancer screening 05/07/2023 10:07 AM EST Scheduled Orders Name Type Priority Associated Diagnoses Orde r Schedule MAMMOGRAM SCREENING DEBBIE BILATERAL Medical Imaging Routine Encounter for screening mammogram for breast cancer Family history of breast cancer Expected: 05/07/2023 (Approximate), Expires: 06/07/2024 Health Maintenance Due Date Last Done Comments Hepatitis B (1 of 3 - 3-dose series) 1986 COVID-19 Vaccine (#1) 1986 HPV/Co-Test 2016 Cervical Cancer Screening 07/04/2021 Pap Smear 07/04/2021 07/04/2018, 09/0 05/2014, 01/26/2015, Additional history exists TSH 09/27/2023 09/26/2022, 08/26, 08/31/2020, Additional history exists Depression Screening 11/07/2023 11/06/2022 Diabetes Screening 01/16/2026 01/16/2023, 0 01/16/2023, 09/26/2022, Additional history exists DTaP,Tdap,and Td Vaccines (3 - Td or [...] Procedure Name Priority Date/Time Associated Diagnosis Comments CHLAMYDIA TRACHOMATIS AND NEISSERIA GONORRHOEAE, AMPLIFIED PROBE Routine 05/07/2023 10:07 AM EST Vaginal discharge VAGINOSIS PANEL, PCR Routine 05/07/2023 10:07 AM EST Vaginal discharge TRICHOMONAS VAGINALIS, AMPLIFIED PROBE Routine 05/07/2023 10:07 AM EST Vaginal discharge documented in this encounter Results * TRICHOMONAS VAGINALIS, AMPLIFIED PROBE (05/07/2023 10:07 AM EST) Trichomonas Vaginalis Result Negative Negative 05/08/2023 1:45 PM EST [facility] Comment:No Trichomonas vagin yohannes detected by aegis console operator track mediated nucleic acid amplification. Swab Specimen from wound / Unknown 05/07/2023 10:07 AM EST 05/07/2023 10:07 AM EST Stefanie Avila PA-C LAB MICRO - GENERA L ORDERABLES [facility] [address] [place] [address] * CHLAMYDIA TRACHOMATIS AND NEISSERIA GONORRHOEAE, AMPLIFIED PROBE (05/07/2023 10:07 AM EST) Chlamydia Trachomatis Result Negative Negative 05/08/2023 2:01 PM EST [facility] Comment:No Chlamydia trachom atis detected by aegis console operator track-mediated nucleic acid amplification. Neisseria Gonorrhoeae Result Negative Negative 05/08/2023 2:01 PM EST [facility] Comment:No Neisseria gonorrh oeae detected by aegis console operator track-mediated nucleic acid amplification. Swab Specimen from wound / Unknown 05/07/2023 10:07 AM EST 05/07/2023 10:07 AM EST Stefanie Avila PA-C LAB MICRO - GENERA L ORDERABLES [facility] [address] [place] [address] * VAGINOSIS PANEL, PCR (05/07/2023 10:07 AM EST) Pathologist [facility] Elena Glabrata PCR Result Negative Negative 05/08/2023 1:02 PM EST [facility] Comment:Elena glabrata not detected by PCR. Elena Albicans PCR Result Negative Negative 05/08/2023 1:02 PM EST [facility] Comment:Elena albicans not detected by PCR. Trichomonas Vaginalis PCR Result Negative Negative 05/08/2023 1:02 PM EST [facility] Comment:Trichomonas vaginali s not detected by PCR. Gardnerella Vaginalis PCR Result Negative Negative 05/08/2023 1:02 PM EST [facility] Comment: Gardnerella vaginalis not detected by PCR. This test was developed and its performance characteristics determined by [facility]. It has not been cleared or approved by the U.S. Food and Drug Administration (FDA). FDA does not require this test to go through premarket FDA review. This test is used for clinical purposes. It should not be regarded as investigational or for research. This laboratory is certified under the Clinical Laboratory Improvement Amendments (CLIA) as qualified to perform high complexity clinical laboratory testing. The validation of self-collected vaginal swabs for this assay was developed and performance characteristics determined by [facility]. The validation of alternate specimen types has not been cleared or approved by the U.S. Food and Drug Administration (FDA). It has been determined that such clearance or approval is not necessary. Swab Specimen from wound / Unknown 05/07/2023 10:07 AM EST 05/07/2023 10:07 AM EST Stefanie Avila PA-C LAB MICRO - GENERA L ORDERABLES Performing Organization Address City/State/[facility] Co de Phone Number [facility] [address] [place] [address] documented in this encounter Visit Diagnoses Diagnosis Pap smear for cervical cancer screening- Primary Screening for malignant neoplasm of the cervix Menorrhagia with irregular cycle Excessive or frequent menstruation Primary dysmenorrhea Dysmenorrhea Encounter for surveillance of contraceptive pills Surveillance of previously prescribed contraceptive pill Encounter for screening mammogram for breast cancer Family history of breast cancer Family history of malignant neoplasm of breast Vaginal discharge Leukorrhea, not specified as infective documented in this encounter Care Teams Boom Tender Relationship Specialty Start Date End Date Wei Laughlin PA-C [address] [address] PCP - General Physician Switchboard Operator 03/07/16 documented as of this encounter
--- OUTSIDE RECORDS SUMMARY | 2023-07-29 04:50 | External Medical Summary ---
Author Name Unknown Address Unknown Organization K1F:[facility] [address] [address] Laboratory Report Ordering Provider Test Date Status TIFFANY DERAS 06/28/2023 20:45:09 Final Observation Date Value Abnormality Reference (Units ) Status Lactic Acid 06/28/2023 20:45:09 5.1 Above upper panic limits 0.4-2.0 (mmol/L) Final Performing Location [facility] [address] [id number]
--- OUTSIDE RECORDS SUMMARY | 2023-07-29 04:50 | External Medical Summary ---
Author Name Unknown Address Unknown Organization [facility]1F:[facility] [address] [address] Laboratory Report Ordering Provider Test Date Status TIFFANY DERAS 06/28/2023 20:45:09 Final Observation Date Value Abnormality Reference (Units ) Status Phosphate 06/28/2023 20:45:09 1.7 Below low normal 2.5 -4.8 (mg/dL) Final Performing Location [facility] [address] [address]
--- OUTSIDE RECORDS SUMMARY | 2023-07-29 04:50 | External Medical Summary ---
Author Name Unknown Address Unknown Organization K01:LABORATORY [address] [address] Laboratory Report Ordering Provider Test Date Status PÉREZ HILTON 05/07/2023 10:07:00 Final Observation Date Value Abnormality Reference (Units ) Status Human papilloma virus E6+E7 mRNA [Presence] in Cervix by KIMBER[facility] with probe detection 05/07/2023 10:07:00 Negative Not Applicable Final No high/intermediate-risk Hu man Papillomavirus (HPV E6/E7 messenger RNA) detected by nucleic acid amplification.

This assay looks for high/intermediate risk Human Papillomavirus (HPV E6/E7 messenger RNA) by nucleic acid amplification. This assay includes the qualitative detection of HPV types 16,18,31,33,35,39,45,51,52,56,58,59,66 and 68 from cervical specimens.
This assay has been FDA cleared for Thin prep collection vials.
This assay has not been approved for use as a primary screening test for HPV and should be tested in conjunction with a PAP screen.
If collected utilizing a Surepath vial, the collection and specimen preparation of this test was developed, and its performance characteristics determined by [facility]. It has not been cleared or approved by the U.S. Food and Drug Administration (FDA). The FDA has determined that such clearance or approval is not necessary.
This assay has been performed at [facility], [address] [place] [address], [place]. [address]. Performing Location LABORATORY [address] [place]. [facility] [address]
--- OUTSIDE RECORDS SUMMARY | 2023-07-29 04:50 | External Medical Summary | Summary of Care ---
Author Name Unknown Organization [facility] Address [address] [place] [address] Phone [phone] Care Team Providers Care Airborne Mission Systems Superintendent Name Role Phone Wei Laughlin PA-C Primary Care Provider [phone] Reason for Visit * Reason Comments Outpatient Testing Encounter Details Date Type Department Care Team Description 03/07/2023 [facility] [place] [facility] [id number] [place], Lab [address] [facility] [place] [address] Right flank pain; Gross hematuria; Pelvic pressure in female Allergies No known active allergiesdocumented as of this encounter (statuses as of 03/07/2023) Medications Medication Sig Dispensed Refills Start Date End Date Status Clindamycin Phosphate 1 % External Lotion Apply to face every morning 180 mL 3 09/09/2021 Active valACYclovir HCl 500 MG Oral Tablet (Valtrex) TAKE 1 TAB BY MOUTH DAILY. UNTIL FINISHED INDICATIONS: NEEDED FOR COLD SORES. 30 Tablet 5 10/12/2021 Active Norethindrone 0.35 MG Oral TabletIndications:Me norrhagia with irregular cycle,Primary dysmenorrhea,Encount er for surveillance of contraceptive pills Take by mouth 1 Tablet in the morning. 84 Tablet 4 12/16/2021 Active Additional Information Patient taking differently:0.35 mg OralQ-1999, Reported on 09/18/2022 Tretinoin 0.025 % External CreamIndications:Acn e vulgaris [...] Active Additional Information Patient not taking.Reported on 02/28/2023 Cyanocobalamin 1000 MCG/ML Injection Solution (Cyanocobalamin)Sanna cations:Vitamin B12 deficiency (dietary) anemia Inject 1,000 mcg into a large muscle every 30 days. 1 mL 11 01/22/2023 Active Ondansetron 4 MG Oral Tablet Disintegrating (Zofran) Place 1 Tablet on tongue every 8 hours as needed for Nausea. dissolve on tongue. 20 Tablet 0 02/14/2023 Active Wegovy 2.4 MG/0.75ML Subcutaneous Solution Auto-injector (Semaglutide-Weight Management) Inject 2.4 mg under the skin once a week for 28 days. 9 mL 1 02/19/2023 3 Active Phenazopyridine HCl 200 MG Oral Tablet (Pyridium)Indication s:Acute cystitis with hematuria Take 1 Tablet by mouth 3 times a day as needed for Pain, Moderate. After meals for pain with urination 10 Tablet 0 02/28/2023 Active traMADol HCl 50 MG Oral Tablet (Ultram)Indications: Kidney stone Take 1 Tablet by mouth every 8 hours as needed for Pain, Severe. 15 Tablet 0 02/28/2023 Active Ciprofloxacin HCl 500 MG Oral Tablet (Cipro) Take 1 Tablet by mouth in the morning and 1 Tablet before bedtime. Do all this for 5 days. 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 09/26/2019 Gastroesophageal reflux disease without esophagitis 06/10/2019 Anemia 01/01/2019 Congenital nevus of buttock [...] 11:26 PM Family history of breast cancer 01/09/20 12 Family history of bladder cancer 012 documented as of this encounter (statuses as of 03/07/2023) Resolved Problems Problem Noted Date Resolved Date Chronic obstructive pulmonary disease 08/25/2021 12/16/2021 Major depressive disorder, recurrent episode, mo derate 06/26/2020 06/26/2020 Overview: per PCP notes Opioid dependence, uncomplicated 07/18/2018 07/18/2018 Paronychia 06/26/2016 09/05/2019 Pneumonia due to organism 01/09/20112015 Overview: ICD-10 update of inactive term Body mass index (BMI) of 45.0-49.9 in adult 05/08/201003/07/2017 Overview: ICD-10 update of inactive term Major depressive disorder 09/28/20102020 Overview: ICD-10 update of inactive term Calculus of kidney 12/15/2008 03/07/2016 Overview: 12/10/08: bilat renal stones Other specified adjustment reaction 01/07/2008 03/07/2016 documented as of this encounter (statuses as of 03/07/2023) Immunizations Name Administration Dates Next Due H1N1 2009 Influenza, IM 06/22/2009 HPV Vaccine, 4-Valent 01/14/2008,09/16/2007,06/28 SEASONAL INFLUENZA, PF, 6 M & Above, IM , (FLULAVAL or FLUZONE) 04/12/2022,03/22/2021 Seasonal Influenza, Quadriva lent, No Preserve, IM 05/07/2020,04/14/2020,03/17/2019 Seasonal Influenza, Split, I IV3, With Preserve, Inj 04/17/2014,02/03/2013,03/08/2012,2009,04/15/2008 TD, Preservative Free 03/17/2019 TDAP (age 11 and older)(Adacel) 11/21/2007 documented as of this encounter Social History Tobacco Use Types Packs/Day Years Used Date Smoking Tobacco: Never Smokeless Tobacco: Never Alcohol Use Standard Drinks/Week Comments No 0 (1 standard drink = 0.6 oz pur e alcohol) Food Insecurity Answer Date Recorded Within the past 12 months, y ou worried that your food would run out before you got money to buy more. Never true 11/06/2022 Within the past 12 months, t he food you bought just didn't last and you didn't have money to get more. Never true 11/06/2022 Sex Assigned at Date Recorded Female 06/10/2019 11:01 AM EST Job Start Date Occupation Industry Not on file Not on file Not on file documented as of this encounter Plan of Treatment Upcoming Encounters Date Type Specialty Care Team Description 05/07/2023 Office Visit Family Medicine Stefanie Avila PA-C [address] [facility] [address] [place] [address] 07/24/2023 Office Visit Gastroenterology Rachele Mike PA-C [address] [place] [address] 10/09/2023 Office Visit Family Medicine Wei Laughlin PA-C [address] [place] [address] 11/13/2023 Office Visit Dermatology Ruth Ann Teran PA-C [address] [facility] [place] [address] Pending Results Name Type Priority Associated Diagnoses Date /Time URINALYSIS, REFLEX TO MICROSCOPIC Lab Routine Right flank pain Gross hematuria Pelvic pressure in female 03/07/2023 11:04 AM EDT CULTURE, URINE, QUANTITATIVE Lab Routine Right flank pain Gross hematuria Pelvic pressure in female 03/07/2023 11:04 AM EDT Health Maintenance Due Date Last Done Comments Hepatitis B (1 of 3 - 3-dose series) 1986 COVID-19 Vaccine (#1) 1986 HPV/Co-Test 2016 Cervical Cancer Screening 07/04/2021 Pap Smear 07/04/2021 07/04/2018, 09/05/2014, 01/26/2015, Additional history exists Influenza Vaccine (FLU shot) (#1) 2023 04/12/2022, 03/22/2021, 05/07/2020, Additional history exists TSH 09/27/2023 09/26/2022, 08/26, 08/31/2020, Additional history exists Depression Screening 11/07/2023 11/06/2022 Diabetes Screening 01/16/2026 01/16/2023, 0 01/16/2023, 09/26/2022, Additional history exists DTaP,Tdap,and Td Vaccines (3 - Td or Tdap) 03/17/2029 03/17/2019, 11/21/2007 GARDASIL-HPV IMMUNIZATION SERIES Completed 01/14/2008, 09/16/2007, 07/16/2007 MENINGOCOCCAL (MENACTRA/MENVEO) Aged Out No longer eligible based on patient's age to complete this topic Pneumococcal Vaccine: Pediatrics (0 to 5 Years) and At-Risk Patients (6 to 64 Years) Aged Out No longer eligible based on patient's age to complete this topic documented as of this encounter Medical Devices Not on filedocumented as of this encounter Visit Diagnoses Diagnosis Right flank pain Abdominal pain, unspecified site Gross hematuria Pelvic pressure in female Other specified symptom associated with female genital organs documented in this encounter Care Teams Airborne Mission Systems Superintendent Relationship Specialty Start Date End Date Wei Laughlin PA-C [address] [place] [address] PCP - General Physician Suede Cleaner 03/07/16 documented as of this encounter
--- OUTSIDE RECORDS SUMMARY | 2023-07-29 04:50 | External Medical Summary | Summary of Care ---
Author Name Unknown Organization [facility] Address [address] [place] [place] [address] Phone [phone] Care Team Providers Care Endoscopy Support Specialist Name Role Phone Wei Laughlin PA-C Primary Care Provider [phone] Reason for Visit * Precert (Within 24 hrs (call dept; emergent)) - Pending Review Specialty Diagnoses / Procedures Referred By Contac t Referred To Contact Radiology Diagnoses Right flank pain Gross hematuria Pelvic pressure in female Procedures CT ABD/PELVIS WO IV/ORAL CONTRAST Stefanie Avila PA-C [address] [address] Referral ID Status Reason Start Date Expiration Date V isits Requested Visits Authorized [id number] Pending Review 03/06/[phone] Encounter Details Date Type Department Care Team Description 03/06/2023 Hospital Encounter Radiology, [facility] [address] [place], [place] [id number] Arrived Allergies No known active allergiesdocumented as of [...] for 28 days. 9 mL 1 02/19/2023 Active Phenazopyridine HCl 200 MG Oral Tablet [...] Pain, Severe. 15 Tablet 0 02/28/2023 Active documented as of this encounter (statuses [...] mass index (BMI) of 45.0-49.9 in adult 08/201003/07/2017 Overview: ICD-10 update of inactive term Major [...] Office Visit Family Medicine Stefanie Avila PA-C [address] [place] [address] 07/24/2023 Office Visit Gastroenterology Rachele Mike PA-C [address] [place] [address] 10/09/2023 Office Visit Family Medicine Wei Laughlin PA-C [address] [place] [address] 11/13/2023 Office Visit Dermatology Ruth Ann Teran PA-C [address] [facility] [place] [address] Health Maintenance Due Date Last Done Comments Hepatitis B (1 of 3 - 3-dose series) 1986 COVID-19 Vaccine (#1) 1986 HPV/Co-Test 2016 Cervical Cancer Screening 07/04/2021 Pap Smear 07/04/2021 07/04/2018, 09/0 05/2014, 01/26/2015, Additional history exists Influenza Vaccine (FLU [...] Procedure Name Priority Date/Time Associated Diagnosis Comments CT ABD/PELVIS WO IV/ORAL CONTRAST STAT 03/06/2023 3:47 PM EDT Right flank pain Gross hematuria Pelvic pressure in female documented in this encounter Results * CT ABD/PELVIS WO IV/ORAL CONTRAST (03/06/2023 3:47 PM EDT) Anatomical Region Laterality Modality Body, Abdomen, Pelvis Computed T omography 03/06/2023 3:55 PM EDT Impressions 03/06/2023 3:52 PM EDT IMPRESSION No acute CT findings. Narrative 03/06/2023 3:52 PM EDT EXAM EXAM: CT ABD/PELVIS WO IV/ORAL CONTRAST DATE and TIME: 03/06/2023 - 03/06/2023 3:47 pm HISTORY "right flank pain, pelvic pressure, hx of kidney stones" TECHNIQUE Oral Contrast: Oral contrast was not administered. IV Contrast: No IV contrast was used. Abdomen/Pelvis: Without intravenous contrast COMPARISON 09/26/2020 FINDINGS LOWER CHEST: HEART (visualized): Normal in size. LUNG BASES: Clear. Small to moderate hiatal hernia. ABDOMEN/PELVIS: LINES AND DEVICES: None. LIVER: Unremarkable. BILE DUCTS: Unremarkable. GALLBLADDER: Unremarkable. PANCREAS: Unremarkable. SPLEEN: Unremarkable. ADRENALS: Unremarkable. KIDNEYS/URETERS: Partially malrotated right kidney. Right renal cyst. No nephrolithiasis, hydronephrosis, or obstructive uropathy. BLADDER: Not well distended. BOWEL: Postsurgical changes involving the stomach. No bowel wall thickening or bowel obstruction. Normal appendix. LYMPH NODES: No intra-abdominal or intrapelvic lymphadenopathy. VESSELS: Abdominal aorta is normal in caliber. REPRODUCTIVE ORGANS: Unremarkable. PERITONEUM/RETROPERITONEUM: No ascites or pneumoperitoneum. ABDOMINAL WALL/SOFT TISSUES: Unremarkable. BONES: Mild degenerative changes in the spine. L5 limbus vertebra. Procedure Note Newell, Paulo, MD - 03/06/2023 EXAM EXAM: CT ABD/PELVIS WO IV/ORAL CONTRAST DATE and TIME: 03/06/2023 - 03/06/2023 3:47 pm HISTORY "right flank pain, pelvic pressure, hx of kidney stones" TECHNIQUE Oral Contrast: Oral contrast was not administered. IV Contrast: No IV contrast was used. Abdomen/Pelvis: Without intravenous contrast COMPARISON 09/26/2020 FINDINGS LOWER CHEST: HEART (visualized): Normal in size. LUNG BASES: Clear. Small to moderate hiatal hernia. ABDOMEN/PELVIS: LINES AND DEVICES: None. LIVER: Unremarkable. BILE DUCTS: Unremarkable. GALLBLADDER: Unremarkable. PANCREAS: Unremarkable. SPLEEN: Unremarkable. ADRENALS: Unremarkable. KIDNEYS/URETERS: Partially malrotated right kidney. Right renal cyst.No nephrolithiasis, hydronephrosis, or obstructive uropathy. BLADDER: Not well distended. BOWEL: Postsurgical changes involving the stomach. No bowel wallthickening or bowel obstruction. Normal appendix. LYMPH NODES: No intra-abdominal or intrapelvic lymphadenopathy. VESSELS: Abdominal aorta is normal in caliber. REPRODUCTIVE ORGANS: Unremarkable. PERITONEUM/RETROPERITONEUM: No ascites or pneumoperitoneum. ABDOMINAL WALL/SOFT TISSUES: Unremarkable. BONES: Mild degenerative changes in the spine. L5 limbus vertebra. IMPRESSION IMPRESSION No acute CT findings. Stefanie Avila PA-C RAD CT documented in this encounter Care Teams Endoscopy Support Specialist Relationship Specialty Start Date End Date Wei Laughlin PA-C [address] [facility] [place] [address] PCP - General Physician Manufacturing Engineer Chief 03/07/16 documented as of this encounter
--- OUTSIDE RECORDS SUMMARY | 2023-07-29 04:50 | External Medical Summary ---
Author Name Unknown Address Unknown Organization [id number]:[facility] [address] [place] [address] Laboratory Report Ordering Provider Test Date Status TIFFANY DERAS 06/28/2023 20:52:30 Final ADMITTED patient Observation Date Value Abnormality Reference (Units ) Status Adenovirus DNA [Presence] in Nasopharynx by KIMBERLY with non-probe detection 06/28/2023 20:52:30 Negative Negative Final Human coronavirus 229E RNA [Presence] in Nasopharynx by KIMBERLY with non-probe detection 06/28/2023 20:52:30 Negative Negative Final Human coronavirus HKU1 RNA [Presence] in Nasopharynx by KIMBERLY with non-probe detection 06/28/2023 20:52:30 Negative Negative Final Human coronavirus NL63 RNA [Presence] in Nasopharynx by KIMBERLY with non-probe detection 06/28/2023 20:52:30 Negative Negative Final Human coronavirus OC43 RNA [Presence] in Nasopharynx by KIMBERLY with non-probe detection 06/28/2023 20:52:30 Negative Negative Final SARS-CoV-2 (COVID-19) RNA [Presence] in Nasopharynx by KIMBERLY with non-probe detection 06/28/2023 20:52:30 Negative Negative Final Human metapneumovirus RNA [Presence] in Nasopharynx by KIMBERLY with non-probe detection 06/28/2023 20:52:30 Negative Negative Final Rhinovirus+Enterovirus RNA [Presence] in Nasopharynx by KIMBERLY with non-probe detection 06/28/2023 20:52:30 Negative Negative Final Influenza virus A RNA [Presence] in Nasopharynx by KIMBERLY with non-probe detection 06/28/2023 20:52:30 Negative Negative Final Influenza virus B RNA [Presence] in Nasopharynx by KIMBERLY with non-probe detection 06/28/2023 20:52:30 Negative Negative Final Parainfluenza virus 1 RNA [Presence] in Nasopharynx by KIMBERLY with non-probe detection 06/28/2023 20:52:30 Negative Negative Final Parainfluenza virus 2 RNA [Presence] in Nasopharynx by KIMBERLY with non-probe detection 06/28/2023 20:52:30 Negative Negative Final Parainfluenza virus 3 RNA [Presence] in Nasopharynx by KIMBERLY with non-probe detection 06/28/2023 20:52:30 Negative Negative Final Parainfluenza virus 4 RNA [Presence] in Nasopharynx by KIMBERLY with non-probe detection 06/28/2023 20:52:30 Negative Negative Final Respiratory syncytial virus RNA [Presence] in Nasopharynx by KIMBERLY with non-probe detection 06/28/2023 20:52:30 Negative Negative Final Bordetella pertussis.pertussis toxin promoter region [Presence] in Nasopharynx by KIMBERLY with non-probe detection 06/28/2023 20:52:30 Negative Negative Final Chlamydophila pneumoniae DNA [Presence] in Nasopharynx by KIMBERLY with non-probe detection 06/28/2023 20:52:30 Negative Negative Final Mycoplasma pneumoniae DNA [Presence] in Nasopharynx by KIMBERLY with non-probe detection 06/28/2023 20:52:30 Negative Negative Final Bordetella parapertussis [id number] DNA [Presence] in Nasopharynx by KIMBERLY with non-probe detection 06/28/2023 20:52:30 Negative Negative Final
The primers that detect Rhinovirus may cross react with some Enterorviruses. The validation of bronchial specimens, tracheal aspirates, and throats for this assay was developed and performance characteristics determined by [facility]. The validation of alternate specimen types has not been cleared or approved by the U.S. Food and Drug Administration (FDA). It has been determined that such clearance or approval is not necessary. [facility] [address] [facility] [place] [facility] [address]
--- OUTSIDE RECORDS SUMMARY | 2023-07-29 04:50 | External Medical Summary | Summary of Care ---
Author Name Unknown Organization [facility] Address [address] [facility] [place] [address] Phone [phone] Care Team Providers Care Assembly Lead Person Name Role Phone Wei Laughlin PA-C Primary Care Provider [phone] Reason for Visit * Reason Comments PAP Encounter Details Date Type Department Care Team (Late st Contact Info) Description 05/07/2023 9:20 AM EST Office Visit [address] [place] [address] Stefanie Avila PA-C [facility] [address] [place] [address] Pap smear for cervical cancer screening*; Menorrhagia with irregular cycle; Primary dysmenorrhea; Encounter for surveillance of contraceptive pills; Encounter for screening mammogram for breast cancer; Family history of breast cancer; Vaginal discharge Allergies No known active allergiesdocumented as of this encounter (statuses as of 05/15/2023) Medications Medication Sig Dispensed Refills Start Date [...] as of this encounter (statuses as of 05/15/2023) Active Problems Problem Noted Date Diagnosed Date [...] as of this encounter (statuses as of 05/15/2023) Resolved Problems Problem Noted Date Diagnosed Date [...] as of this encounter (statuses as of 05/15/2023) Immunizations Name Administration Dates Next Due H1N1 [...] performed by Rosa Tate DO at ENDOSCOPY [facility] INJECT DX/THER SUBSTANCE INTERLAMINAR CERVICAL/THORACIC W IMAGE GUIDE N/A 12/22/2021 INJECTION SPINE LUMBAR CERVICAL OR THORACIC performed by Elia Sanchez MD at OR [facility] INJECT DX/THER SUBSTANCE INTERLAMINAR LUMBAR/SACRAL W IMAGE GUIDE N/A 09/05/2018 INJECTION SPINE LUMBAR OR SACRAL performed by Margarita Metcalf MD at OR [facility] INJECT DX/THER SUBSTANCE INTERLAMINAR LUMBAR/SACRAL W IMAGE GUIDE N/A 12/25/2019 INJECTION SPINE LUMBAR OR SACRAL performed by Margarita Metcalf MD at OR [facility] INJECT DX/THER SUBSTANCE INTERLAMINAR LUMBAR/SACRAL W IMAGE GUIDE 09/30/2020 INJECTION SPINE LUMBAR OR SACRAL performed by David Woodward DO at OR [facility] L-/S-SPINE PARAVERTEBRAL FACET INJ,1 LEVEL Right 10/04/2018 L-/S-SPINE PARAVERTEBRAL FACET INJ, 1 LEVEL performed by Margarita Metcalf MD at OR [facility] L-/S-SPINE PARAVERTEBRL FACET INJ,2 LEVELS Right 10/04/2018 L-/S-SPINE PARAVERTEBRAL FACET INJ, 2 LEVELS performed by Margarita Metcalf MD at OR [facility] L-/S-SPINE PARAVERTEBRL FACET INJ,3 LEVELS Right 10/04/2018 L-/S-SPINE PARAVERTEBRAL FACET INJ, 3 OR MORE LEVELS performed by Margarita Metcalf MD at OR [facility] MRI L SPINE W WO CONTRAST [...] smear for cervical cancer screening (Primary) - CREDIT CARD CLERK PAP SCREEN Menorrhagia with irregular cycle [...] Encounter Note - Yi Byrne RN - 05/15/2023 9:41 AM EST Reason for Call: PAP Contact: My David Contact Type: Test Results Outcome: MyG sent. Face to face time spent with Patient (minutes): 0 Total Time including non face to face (minutes): 10 * Result Encounter Note - Yi Byrne RN - 05/09/2023 9:34 AM EST Reason for Call: PAP Contact: My Ankitaer Contact Type: Test Results Outcome: MyG sent. Face to face time spent with Patient (minutes): 0 Total Time including non face to face (minutes): 10 documented in this encounter Plan of Treatment Upcoming Encounters Date Type Department Care Team (Late st Contact Info) Description 07/10/2023 3:15 PM EST Appointment Radiology, [place] [address] [place] [address] 07/24/2023 11:00 AM EST Office Visit Nutrition & Weight Management, [facility] [address] [place] [address] Rachele Mike PA-C [address] [place] [address] 10/09/2023 4:20 PM EDT Office Visit Family [facility], [place] [address] [phone] Wei Laughlin PA-C [address] [facility] [place] [address] 11/13/2023 1:10 PM EDT Office Visit Dermatology [facility], [place] [address] [place] [address] Ruth Ann Teran PA-C [address] [place] [address] 05/08/2024 9:20 AM EST Office Visit [place] [address] [place] [address] Stefanie Avila PA-C [address] [place] [address] [place] [address] Scheduled Orders Name Type Priority Associated Diagnoses [...] 01/16/2023, 0 01/16/2023, 09/26/2022, Additional history exists Pap Smear 05/07/2026 05/07/2023, 02/11/2018, 01/26/2015, Additional history exists Cervical Cancer Screening 05/07/2028 [...] Routine 05/07/2023 10:07 AM EST Vaginal discharge HUMAN PAPILLOMA VIRUS, PROBE Routine 05/07/2023 10:07 AM EST Pap smear for cervical cancer screening CREDIT CARD CLERK PAP SCREEN Routine 05/07/2023 10:07 AM EST Pap smear for cervical cancer screening documented in this encounter Results * HUMAN PAPILLOMA VIRUS, PROBE (05/07/2023 10:07 AM EST) Human Papilloma Virus Result Negative Not Applicable 05/14/2023 1:39 PM EST LAB[facility]ATORY [facility] Comment: No high/intermediate-risk Human Papillomavirus (HPV E6/E7 messenger RNA) detected by [...] developed, and its performance characteristics determined by [employer] [facility]. It has not been cleared or approved by the U.S. Food and Drug Administration (FDA). The FDA has determined that such clearance or approval is not necessary. This assay has been performed at [facility], [address] [place] [address]. [id number]. Pap Test Specimen from wound / Unknown 05/07/2023 10:07 AM EST 05/08/2023 5:54 AM EST Stefanie Avila PA-C LAB MICRO - GENERA L ORDERABLES Performing Organization Address [facility] [place] [address] * TRICHOMONAS VAGINALIS, AMPLIFIED PROBE (05/07/2023 10:07 AM EST) Pathologist [facility] Trichomonas Vaginalis Result Negative Negative 05/08/2023 1:45 PM EST LABORATORY [facility] Comment:No Trichomonas vagin yohannes detected by track repairer mediated nucleic acid amplification. Swab Specimen from wound / Unknown 05/07/2023 10:07 AM EST 05/07/2023 10:07 AM EST Stefanie Avila PA-C LAB MICRO - GENERA L ORDERABLES Performing Organization Address [facility] [place] [address] * CHLAMYDIA TRACHOMATIS AND NEISSERIA GONORRHOEAE, AMPLIFIED PROBE (05/07/2023 10:07 AM EST) Chlamydia Trachomatis Result Negative Negative 05/08/2023 2:01 PM EST LABORATORY [facility] Comment:No Chlamydia trachom atis detected by track repairer-mediated nucleic acid amplification. Neisseria Gonorrhoeae Result Negative Negative 05/08/2023 2:01 PM EST LABORATORY [facility] Comment:No Neisseria gonorrh oeae detected by track repairer-mediated nucleic acid amplification. Swab Specimen from wound / Unknown 05/07/2023 10:07 AM EST 05/07/2023 10:07 AM EST Stefanie Avila PA-C LAB MICRO - GENERA L ORDERABLES LABORATORY [facility] [address] [place] [address] * VAGINOSIS PANEL, PCR (05/07/2023 10:07 AM EST) Pathologist [facility] Elena Glabrata PCR Result Negative Negative 05/08/2023 1:02 PM EST LABORATORY [facility] Comment:Elena glabrata not detected by PCR. Elena Albicans PCR Result Negative Negative 05/08/2023 1:02 PM EST LABORATORY [facility] Comment:Elena albicans not detected by PCR. Trichomonas Vaginalis PCR Result Negative Negative 05/08/2023 1:02 PM EST LABORATORY [facility] Comment:Trichomonas vaginali s not detected by PCR. Gardnerella Vaginalis PCR Result Negative Negative 05/08/2023 1:02 PM EST LABORATORY [facility] Comment: Gardnerella vaginalis not detected by PCR. This test was developed and its performance characteristics determined by [employer]. It has not been cleared or approved [...] was developed and performance characteristics determined by [employer]. The validation of alternate specimen types has not been cleared or approved by the U.S. Food and Drug Administration (FDA). It has been determined that such clearance or approval is not necessary. Swab Specimen from wound / Unknown 05/07/2023 10:07 AM EST 05/07/2023 10:07 AM EST Stefanie Avila PA-C LAB MICRO - GENERA L ORDERABLES LABORATORY [facility] [address] [place] [address] * CREDIT CARD CLERK PAP SCREEN (05/07/2023 10:07 AM EST) Final Diagnosis A. Cervix, SurePath Pap test: Adequacy: Satisfactory for evaluation; transformation zone present. Interpretation: Negative for Intraepithelial lesion or malignancy (Danube System). Organisms:Fungal organisms morphologically consistent with Elena spp. AUTOMATED REVIEW: Focal Point computerized screening device (quintile 2, review). 05/14/2023 1:39 PM EST LAB[facility]ORY [facility] Performing Labs Wheel Inspector screening performed at [facility] ([facility]), [address] [place] [address]. Wheel Inspector rescreening performed at [facility] ([facility]), [address] [place] [address]. 05/14/2023 1:39 PM EST LABORATORY [facility] Gross Description A. Cervix. SurePath vial received labeled with the patient's identification. 05/14/2023 1:39 PM EST LABORATORY [facility] EDUCATIONAL NOTE: The Pap test (thin-layer cervical screening specimen) is a screening test that aids in the detection of cervical cancer and cancer precursors. Both false positive and false negative results can occur. The test should be used at regular intervals (as per the ASCCP guidelines) and positive results should be confirmed before definitive therapy. Discrepancies between the Pap test findings and clinical impressions should be resolved with diagnostic tests such as colposcopy and biopsy. 05/14/2023 1:39 PM EST LAB[facility]ATORY [facility] Case Report Gynecologic Cytology Report Case: [id number] Authorizing Provider: Stefanie Avila PA-C Collected: 05/07/2023 10:07 AM Ordering Location: [facility], Received: 05/07/2023 10:07 AM [place] First Screen: Vaishali Carter, CT(ASCP) Rescreen: Renetta Hurtado, CT(ASCP) Specimen: SurePath Pap test, Cervix 05/14/2023 1:39 PM EST [facility] PAP Indication for Procedure: Routine Pap 05/14/2023 1:39 PM EST [facility] PAP Previous Cancer: None 05/14/2023 1:39 PM EST [facility] HPV Permissions: HPV Regardless (Including cotest) 05/14/2023 1:39 PM EST [facility] PAP LMP Date: 02/23/2023 05/14/2023 1:39 PM EST [facility] PAP Contraceptive History: control pills 05/14/2023 1:39 PM EST [facility] PAP Menstrual Status: Pre-menopausal 05/14/2023 1:39 PM EST [facility] Pap Test Specimen from wound / Unknown 05/07/2023 10:07 AM EST 05/07/2023 10:07 AM EST Stefanie Avila PA-C LAB CYTOLOGY ORDER [facility] [address] [place] [address] documented in this encounter Visit [...] infective documented in this encounter Care Teams Assembly Lead Person Relationship Specialty Start Date End Date Wei Laughlin PA-C [address] [phone] PCP - General Physician Dental Technology Advisor 03/07/16 documented as of this encounter
--- OUTSIDE RECORDS SUMMARY | 2023-07-29 04:50 | External Medical Summary ---
Author Name Unknown Address Unknown Organization [id number]:[facility] [place] [address] [facility] [address] Laboratory Report Ordering Provider Test Date Status PÉREZ HILTON 05/07/2023 10:07:02 Final Observation Date Value Abnormality Reference (Units ) Status Elena glabrata DNA [Presence] in Vaginal fluid by KIMBERLY with probe detection 05/07/2023 10:07:02 Negative Negative Final Elena glabrata not detecte d by PCR. Elena albicans DNA [Presen ce] in Vaginal fluid by KIMBERLY with probe detection 05/07/2023 10:07:02 Negative Negative Final Elena albicans not detecte d by PCR. Trichomonas vaginalis DNA [P resence] in Vaginal fluid by KIMBERLY with probe detection 05/07/2023 10:07:02 Negative Negative Final Trichomonas vaginalis not de tected by PCR. Gardnerella vaginalis DNA [P resence] in Vaginal fluid by Probe with signal amplification 05/07/2023 10:07:02 Negative Negative Final Gardnerella vaginalis not de tected by PCR.

This test was developed and its performance characteristics determined by [employer]. It has not been cleared or approved [...] was developed and performance characteristics determined by [employer]. The validation of alternate specimen types has not been cleared or approved by the U.S. Food and Drug Administration (FDA). It has been determined that such clearance or approval is not necessary.

null Performing Location [facility] [place] [address] [facility] [address]
--- OUTSIDE RECORDS SUMMARY | 2023-07-29 04:50 | External Medical Summary ---
Author Name Unknown Address Unknown Organization [id number]:LABORATORY [facility] - [address] [place] [address] Laboratory Report Ordering Provider Test Date Status BRAEDENTIFFANY Andrea 06/28/2023 20:45:09 Final Observation Date Value Abnormality Reference (Units ) Status BUN 06/28/2023 20:45:09 12 6-20 (mg/dL) Final Creatinine 06/28/2023 20:45:09 0.9 0.5-1.0 (mg/dL) Final Glomerular filtration rate/1.73 sq M.predicted [Volume Rate/Area] in Serum, Plasma or Blood by Creatinine-based formula (CKD-EPI) 06/28/2023 20:45:09 86 >=60 (mL/min) Final eGFR is calculated based on the CKD-EPI 2020 equation SODIUM 06/28/2023 20:45:09 137 135-146 (m mol/L) Final Potassium 06/28/2023 20:45:09 3.3 Below low normal 3.5 -5.1 (mmol/L) Final Cl 06/28/2023 20:45:09 99 98-107 (mm ol/L) Final CO2 06/28/2023 20:45:09 14 Below low normal 22- 32 (mmol/L) Final Anion gap 06/28/2023 20:45:09 24 Above high normal 7- 15 (mmol/L) Final Glucose 06/28/2023 20:45:09 140 Above high normal 70 -120 (mg/dL) Final Albumin 06/28/2023 20:45:09 4.5 3.8-5.0 (g /dL) Final AST (Aspartate aminotransferase) 06/28/2023 20:45:09 28 10-35 (U/L) Fin al Result may be falsely elevat ed due to hemolysis. Alk Phos 06/28/2023 20:45:09 76 35-130 (U/ L) Final Bilirubin, Total 06/28/2023 20:45:09 1.2 <=1 .2 (mg/dL) Final Calcium 06/28/2023 20:45:09 10.1 8.4-10.2 ( mg/dL) Final Protein 06/28/2023 20:45:09 8.3 6.0-8.3 (g /dL) Final ALT (Alanine aminotransferase) 06/28/2023 20:45:09 8 Below low normal 10-35 (U/L) Final Performing Location LABORATORY [facility] - [facility] [place] [address]
--- OUTSIDE RECORDS SUMMARY | 2023-07-29 04:50 | External Medical Summary ---
Author Name Unknown Address Unknown Organization K01:LABORATORY [facility] - [address] [place] [address] Laboratory Report Ordering Provider Test Date Status PÉREZ HILTON 05/07/2023 10:07:02 Final Observation Date Value Abnormality Reference (Units ) Status Chlamydia trachomatis rRNA [Presence] in Specimen by KIMBERLY with probe detection 05/07/2023 10:07:02 Negative Negative Final No Chlamydia trachomatis det ected by book salesman-mediated nucleic acid amplification. Neisseria gonorrhoeae rRNA [ Presence] in Specimen by KIMBERLY with probe detection 05/07/2023 10:07:02 Negative Negative Final No Neisseria gonorrhoeae det ected by book salesman-mediated nucleic acid amplification. Performing Location LABORATORY [facility] - [address] [place] [address]
--- OUTSIDE RECORDS SUMMARY | 2023-07-29 04:50 | External Medical Summary | Summary of Care ---
Author Name Unknown Organization [facility] Address [address] [facility] [place] [address] Phone [phone] Care Team Providers Care Pediatric Orthodontist Name Role Phone Wei Laughlin PA-C Primary Care Provider [phone] Reason for Visit * Reason Comments PAP Encounter Details Date Type Department Care Team (Late st Contact Info) Description 05/07/2023 9:20 AM EST Office Visit [address] [place] [address] Stefanie Avila PA-C [facility] [address] [place] [address] Pap smear for cervical cancer screening*; Menorrhagia with irregular cycle; Primary dysmenorrhea; Encounter for surveillance of contraceptive pills; Encounter for screening mammogram for breast cancer; Family history of breast cancer; Vaginal discharge Allergies No known active allergiesdocumented as of this encounter (statuses as of 05/07/2023) Medications Medication Sig Dispensed Refills Start Date [...] as of this encounter (statuses as of 05/07/2023) Active Problems Problem Noted Date Diagnosed Date [...] as of this encounter (statuses as of 05/07/2023) Resolved Problems Problem Noted Date Diagnosed Date [...] as of this encounter (statuses as of 05/07/2023) Immunizations Name Administration Dates Next Due H1N1 2009 Influenza, IM 06/22/2009 HPV Vaccine, 4-Valent 01/14/2008,09/16/2007,06/28 SEASONAL INFLUENZA, PF, 6 M & Above, IM , (FLULAVAL or FLUZONE) 04/17/2023,04/12/2022,03/22/2021 Seasonal Influenza, Quadriva lent, No Preserve, [...] evaluated and get opinion from Plastic Surgeon Jamei Reynolds MD 01/12/2016 11:26 PM Esophageal reflux [...] performed by Rosa Tate DO at ENDOSCOPY [facility] INJECT DX/THER SUBSTANCE INTERLAMINAR CERVICAL/THORACIC W IMAGE GUIDE N/A 12/22/2021 INJECTION SPINE LUMBAR CERVICAL OR THORACIC performed by Elia Sanchez MD at OR [facility] INJECT DX/THER SUBSTANCE INTERLAMINAR LUMBAR/SACRAL W IMAGE GUIDE N/A 09/05/2018 INJECTION SPINE LUMBAR OR SACRAL performed by Margarita Metcalf MD at OR [facility] INJECT DX/THER SUBSTANCE INTERLAMINAR LUMBAR/SACRAL W IMAGE GUIDE N/A 12/25/2019 INJECTION SPINE LUMBAR OR SACRAL performed by Margarita Metcalf MD at OR [facility] INJECT DX/THER SUBSTANCE INTERLAMINAR LUMBAR/SACRAL W IMAGE GUIDE 09/30/2020 INJECTION SPINE LUMBAR OR SACRAL performed by David Woodward DO at OR [facility] L-/S-SPINE PARAVERTEBRAL FACET INJ,1 LEVEL Right 10/04/2018 L-/S-SPINE PARAVERTEBRAL FACET INJ, 1 LEVEL performed by Margarita Metcalf MD at OR [facility] L-/S-SPINE PARAVERTEBRL FACET INJ,2 LEVELS Right 10/04/2018 L-/S-SPINE PARAVERTEBRAL FACET INJ, 2 LEVELS performed by Margarita Metcalf MD at OR [facility] L-/S-SPINE PARAVERTEBRL FACET INJ,3 LEVELS Right 10/04/2018 L-/S-SPINE PARAVERTEBRAL FACET INJ, 3 OR MORE LEVELS performed by Margarita Metcalf MD at OR [facility] MRI L SPINE W WO CONTRAST [...] smear for cervical cancer screening (Primary) - DRILLING MACHINE OPERATOR PAP SCREEN Menorrhagia with irregular cycle Primary [...] today for Pap. documented in this encounter Plan of Treatment Upcoming Encounters Date Type Department Care Team (Late st Contact Info) Description 07/10/2023 3:15 PM EST Appointment Radiology, [place] [address] [address] 07/24/2023 11:00 AM EST Office Visit Nutrition & Weight Management, [facility] [address] [address] Rachele Mike PA-C [address] [address] 10/09/2023 4:20 PM EDT Office Visit Family Practice, [place] [address] [phone] Wei Laughlin PA-C [address] [address] 11/13/2023 1:10 PM EDT Office Visit Dermatology [facility], [place] [address] [place] [address] Ruth Ann Teran PA-C [address] [facility] [place] [address] 05/08/2024 9:20 AM EST Office Visit [facility], [place] [address] [place] [address] Stefanie Avila PA-C [address] [place], [place] [phone] Pending Results Name Type Priority Associated Diagnoses Date /Time DRILLING MACHINE OPERATOR PAP SCREEN Pathology Routine Pap smear for cervical cancer screening 05/07/2023 10:07 AM EST VAGINOSIS PANEL, PCR Lab Routine Vaginal discharge 05/07/2023 10:07 AM EST CHLAMYDIA TRACHOMATIS AND NEISSERIA GONORRHOEAE, AMPLIFIED PROBE Lab Routine Vaginal discharge 05/07/2023 10:07 AM EST TRICHOMONAS VAGINALIS, AMPLIFIED PROBE Lab Routine Vaginal discharge 05/07/2023 10:07 AM EST Scheduled Orders Name Type Priority Associated Diagnoses Orde r Schedule MAMMOGRAM SCREENING DEBBIE BILATERAL Medical Imaging Routine Encounter for screening mammogram for breast cancer Family history of breast cancer Expected: 05/07/2023 (Approximate), Expires: 06/07/2024 VAGINOSIS PANEL, PCR Lab Routine Vaginal discharge Expected: 05/07/2023 (Approximate), Expires: 05/07/2024 CHLAMYDIA TRACHOMATIS AND NEISSERIA GONORRHOEAE, AMPLIFIED PROBE Lab Routine Vaginal discharge Expected: 05/07/2023 (Approximate), Expires: 05/07/2024 TRICHOMONAS VAGINALIS, AMPLIFIED PROBE Lab Routine Vaginal discharge Expected: 05/07/2023 (Approximate), Expires: 05/07/2024 Health Maintenance Due Date Last Done Comments Hepatitis B (1 of 3 - 3-dose series) 1986 COVID-19 Vaccine (#1) 1986 HPV/Co-Test 2016 Cervical Cancer Screening 07/04/2021 Pap Smear 07/04/2021 07/04/2018, 05/2014, 01/26/2015, Additional history exists TSH 09/27/2023 [...] as of this encounter Visit Diagnoses Diagnosis Pap smear [...] infective documented in this encounter Care Teams Pediatric Orthodontist Relationship Specialty Start Date End Date Wei Laughlin PA-C [address] [address] PCP - General Physician Sawmill Moulder Operator 03/07/16 documented as of this encounter
--- OUTSIDE RECORDS SUMMARY | 2023-07-29 04:50 | External Medical Summary | Summary of Care ---
Author Name Unknown Organization [facility] Address [address] [facility] [place] [address] Phone [phone] Care Team Providers Care Machine Chocolate Molder Name Role Phone Wei Laughlin PA-C Primary Care Provider [phone] Reason for Visit * Reason Onset Date Comments Test Results 03/06/2023 Encounter Details Date Type Department Care Team Description 03/06/[address] [facility] [address] [facility] [place] [phone] Stefanie Avila PA-C 65[address] [facility] [address] [address] [place] [address] Test Results Allergies No known active allergiesdocumented as of this encounter (statuses as of 03/06/2023) Medications Medication Sig Dispensed Refills Start Date [...] as of this encounter (statuses as of 03/06/2023) Active Problems Problem Noted Date Moderate recurrent [...] as of this encounter (statuses as of 03/06/2023) Resolved Problems Problem Noted Date Resolved Date [...] as of this encounter (statuses as of 03/06/2023) Immunizations Name Administration Dates Next Due H1N1 [...] encounter Miscellaneous Notes * Telephone Encounter - Sade Davis MED ASSIST - 03/06/2023 6:05 PM EDT Reason for Call: Test Results Contact: Telephone Call Contact Type: Test Results Outcome: Patient informed of message and verbalizes understanding. She will give urine tomorrow. * Telephone Encounter - Stefanie Avila PA-C - 03/06/2023 5:[address] shows no evidence of stone or other acute pathology. Recommend repeating UA C&S if she possibly tested to early for infection. Rx sent to start on Cipro after completing specimen. documented in this encounter Plan of Treatment Upcoming Encounters Date Type Specialty Care Team Description 05/07/2023 Office Visit Family Medicine Stefanie Avila PA-C [address] [facility] [address] [place] [address] 07/24/2023 Office Visit Gastroenterology Rachele Mike PA-C [address] [place] [address] 10/09/2023 Office Visit Family Medicine Wei Laughlin PA-C [address] [place] [address] 11/13/2023 Office Visit Dermatology Ruth Ann Teran PA-C [address] [facility] [place] [address] Scheduled Orders Name Type Priority Associated Diagnoses Orde r Schedule CULTURE, URINE, QUANTITATIVE Lab Routine Right flank pain Gross hematuria Pelvic pressure in female Expected: 03/06/2023 (Approximate), Expires: 03/06/2024 URINALYSIS, REFLEX TO MICROSCOPIC Lab Routine Right flank pain Gross hematuria Pelvic pressure in female Expected: 03/06/2023 (Approximate), Expires: 03/06/2024 Health Maintenance Due Date Last Done Comments [...] this encounter Visit Diagnoses Diagnosis Right flank pain- Primary Abdominal pain, unspecified site Gross hematuria Pelvic pressure in female Other specified symptom associated with female genital organs documented in this encounter Care Teams Machine Chocolate Molder Relationship Specialty Start Date End Date Wei Laughlin PA-C 21 [facility] [place] [phone] PCP - General Physician Administrative Project Coordinator 03/07/16 documented as of this encounter
--- OUTSIDE RECORDS SUMMARY | 2023-07-29 04:50 | External Medical Summary | Summary of Care ---
Author Name Unknown Organization [facility] Address [address] [facility] [place] [address] Phone [phone] Care Team Providers Care Podiatric Physician Name Role Phone Wei Laughlin PA-C Primary Care Provider [phone] Reason for Visit * Reason Comments PAP Encounter Details Date Type Department Care Team (Late st Contact Info) Description 05/07/2023 9:20 AM EST Office Visit [address] [place] [address] Stefanie Avila PA-C [facility]2 [facility] [address] [place] [address] Pap smear for cervical cancer screening*; [...] performed by Rosa Tate DO at ENDOSCOPY [facility] INJECT DX/THER SUBSTANCE INTERLAMINAR CERVICAL/THORACIC W IMAGE GUIDE N/A 12/22/2021 INJECTION SPINE LUMBAR CERVICAL OR THORACIC performed by Elia Sanchez MD at OR [facility] INJECT DX/THER SUBSTANCE INTERLAMINAR LUMBAR/SACRAL W IMAGE GUIDE N/A 09/05/2018 INJECTION SPINE LUMBAR OR SACRAL performed by Margarita Metcalf MD at OR [facility] INJECT DX/THER SUBSTANCE INTERLAMINAR LUMBAR/SACRAL W IMAGE GUIDE N/A 12/25/2019 INJECTION SPINE LUMBAR OR SACRAL performed by Margarita Metcalf MD at OR [facility] INJECT DX/THER SUBSTANCE INTERLAMINAR LUMBAR/SACRAL W IMAGE GUIDE 09/30/2020 INJECTION SPINE LUMBAR OR SACRAL performed by David Woodward DO at OR [facility] L-/S-SPINE PARAVERTEBRAL FACET INJ,1 LEVEL Right 10/04/2018 L-/S-SPINE PARAVERTEBRAL FACET INJ, 1 LEVEL performed by Margarita Metcalf MD at OR [facility] L-/S-SPINE PARAVERTEBRL FACET INJ,2 LEVELS Right 10/04/2018 L-/S-SPINE PARAVERTEBRAL FACET INJ, 2 LEVELS performed by Margarita Metcalf MD at OR [facility] L-/S-SPINE PARAVERTEBRL FACET INJ,3 LEVELS Right 10/04/2018 L-/S-SPINE PARAVERTEBRAL FACET INJ, 3 OR MORE LEVELS performed by Margarita Metcalf MD at OR [facility] MRI L SPINE W WO CONTRAST 02/20/2011 [...] smear for cervical cancer screening (Primary) - CARDIAC REHAB NURSE PAP SCREEN Menorrhagia with irregular cycle Primary [...] EST Appointment Radiology, [place] [address] [place] [address] 07/24/2023 11:00 AM EST Office Visit Nutrition & Weight Management, [facility] [address] [place] [address] Rachele Mike PA-C [address] [place] [address] 10/09/2023 4:20 PM EDT Office Visit Family Practice, [place] [address] [place] [phone] Wei Laughlin PA-C [address] [place] [address] 11/13/2023 1:10 PM EDT Office Visit Dermatology [facility], [place] [address] [facility] [place] [address] Ruth Ann Teran PA-C [address] [facility] [place] [address] 05/08/2024 9:20 AM EST Office Visit [facility], [place] [address] [address] [place] [address] Stefanie Avila PA-C [address] [place], [place] [phone] Pending Results Name Type Priority Associated Diagnoses Date /Time CARDIAC REHAB NURSE PAP SCREEN Pathology Routine Pap smear for [...] infective documented in this encounter Care Teams Podiatric Physician Relationship Specialty Start Date End Date Wei Laughlin PA-C [address] [place] [address] PCP - General Physician Medical Transcriptionist 03/07/16 documented as of this encounter
--- OUTSIDE RECORDS SUMMARY | 2023-07-29 04:50 | External Medical Summary ---
Author Name Unknown Address Unknown Organization K1F:[facility] [address] [facility] [place] [address] Laboratory Report Ordering Provider Test Date Status TIFFANY DERAS 06/28/2023 22:30:08 Final Observation Date Value Abnormality Reference (Units ) Status Color of Urine by Auto 06/28/2023 22:30:08 Yellow Light Yellow, Yellow, Dark Yellow Final Clarity, Urine 06/28/2023 22:30:08 Clear Clear Final Glucose [Mass/volume] in Urine by Automated test strip 06/28/2023 22:30:08 Negative Negative (mg/dL) Final Bilirubin.total [Presence] in Urine by Automated test strip 06/28/2023 22:30:08 Negative Negative Final Ketones [Mass/volume] in Urine by Automated test strip 06/28/2023 22:30:08 >=80 Abnormal Negative (mg/dL) Final Specific gravity, Urine 06/28/2023 22:30:08 1.058 Above high normal 1.003-1.030 Final Hemoglobin [Presence] in Urine by Automated test strip 06/28/2023 22:30:08 Large Abnormal Negative Final pH, Urine 06/28/2023 22:30:08 6.0 5.0-7.5 (Units) Final Protein [Mass/volume] in Urine by Automated test strip 06/28/2023 22:30:08 Trace Abnormal Negative (mg/dL) Final Urobilinogen [Mass/volume] in Urine by Automated test strip 06/28/2023 22:30:08 0.2 0.2, 1.0 (mg/dL) Final Nitrite [Presence] in Urine by Automated test strip 06/28/2023 22:30:08 Negative Negative Final Leukocyte esterase [Presence] in Urine by Automated test strip 06/28/2023 22:30:08 Negative Negative Final RBC, Urine 06/28/2023 22:30:08 20-29 Abnormal 0-2 (/HPF) Final WBC, Urine 06/28/2023 22:30:08 0-2 0-2 (/HPF) Final Bacteria [#/area] in Urine sediment by Microscopy high power field 06/28/2023 22:30:08 26-50 Abnormal 0-25 (/HPF) Final Epithelial cells.squamous [#/area] in Urine sediment by Microscopy high power field 06/28/2023 22:30:08 Many Abnormal None (/HPF) Final CULTURE, URINE - [facility] 06/28/2023 22:30:08 Final Quantitative urine culture t o be performed Performing Location LABORATORY [facility] - [address] [place] [address] [place] [address]
--- OUTSIDE RECORDS SUMMARY | 2023-07-29 04:50 | External Medical Summary ---
Author Name Unknown Address Unknown Organization K1F:[facility] - [address] [place] [address] Laboratory Report Ordering Provider Test Date Status TIFFANY DERAS 06/28/2023 20:45:09 Final Observation Date Value Abnormality Reference (Units ) Status Magnesium 06/28/2023 20:45:09 1.8 1.5-2.6 (m g/dL) Final Performing Location LABORATORY [facility] - [address] [place] [address]
--- OUTSIDE RECORDS SUMMARY | 2023-07-29 04:50 | External Medical Summary ---
Author Name Unknown Address Unknown Organization K01:[facility]ORY [facility] - [address] [facility] [place] [address] Laboratory Report Ordering Provider Test Date Status PÉREZ HILTON 03/07/2023 11:04:33 Final Observation Date Value Abnormality Reference (Units) Status Color of Urine by Auto 03/07/2023 11:04:33 Dark Yellow Colorless, Light Yellow, Yellow, Dark Yellow Final Clarity, Urine 03/07/2023 11:04:33 Slightly Cloudy Abnormal Clear Final Glucose [Mass/volume] in Urine by Automated test strip 03/07/2023 11:04:33 Negative Negative (mg/dL) Final Bilirubin.total [Presence] in Urine by Automated test strip 03/07/2023 11:04:33 Negative Negative Final Ketones [Mass/volume] in Urine by Automated test strip 03/07/2023 11:04:33 Negative Negative (mg/dL) Final Specific gravity, Urine 03/07/2023 11:04:33 1.035 Above high normal 1.003-1.030 Final Hemoglobin [Presence] in Urine by Automated test strip 03/07/2023 11:04:33 Negative Negative Final pH, Urine 03/07/2023 11:04:33 5.5 5.0-7.5 (Units) Final Protein [Mass/volume] in Urine by Automated test strip 03/07/2023 11:04:33 100 Abnormal Negative (mg/dL) Final Urobilinogen [Mass/volume] in Urine by Automated test strip 03/07/2023 11:04:33 Normal Normal (mg/dL) Final Nitrite [Presence] in Urine by Automated test strip 03/07/2023 11:04:33 Negative Negative Final Leukocyte esterase [Presence] in Urine by Automated test strip 03/07/2023 11:04:33 Negative Negative Final RBC, Urine 03/07/2023 11:04:33 3-5 Abnormal 0-2 (/HPF) Final WBC, Urine 03/07/2023 11:04:33 10-19 Abnormal 0-2 (/HPF) Final Bacteria [#/area] in Urine sediment by Microscopy high power field 03/07/2023 11:04:33 0-25 0-25 (/HPF) Final Mucus, Urine 03/07/2023 11:04:33 Many Abnormal None (/HPF) Final Hyaline casts, Urine 03/07/2023 11:04:33 30-49 Abnormal None (/LPF) Final Performing Location LABORATORY [facility] - [address] [facility] [address]
--- OUTSIDE RECORDS SUMMARY | 2023-07-29 04:50 | External Medical Summary ---
Author Name Unknown Address Unknown Organization K1F:LABORATORY [facility] - [address] [place] [address] Ave. [place] [address] Laboratory Report Ordering Provider Test Date Status TIFFANY DERAS 06/28/2023 20:45:09 Final Observation Date Value Abnormality Reference (Units ) Status WBC, Total 06/28/2023 20:45:09 18.07 Above high normal 4.00-10.80 (K/uL) Final RBC 06/28/2023 20:45:09 5.49 3.85-5.15 (M/uL) Final Hemoglobin 06/28/2023 20:45:09 16.2 Above high normal 12.0-15.3 (g/dL) Final HCT 06/28/2023 20:45:09 47.4 Above high normal 36.0-45.2 (%) Final MCV 06/28/2023 20:45:09 86.3 81.5-97.5 (fL) Final MCH 06/28/2023 20:45:09 29.5 27.0-34.0 (pg) Final MCHC 06/28/2023 20:45:09 34.2 32.0-36.0 (g/dL) Final RDW 06/28/2023 20:45:09 12.6 11.5-15.5 (%) Final Platelets 06/28/2023 20:45:09 383 140-400 (K/uL) Final MPV 06/28/2023 20:45:09 10.8 6.6-11.1 (fL) Final Nucleated erythrocytes/100 leukocytes [Ratio] in Blood by Automated count 06/28/2023 20:45:09 0 <=0 (/100 WBCs) Final Performing Location LABORATORY [facility] - [address] [place] [address]
--- OUTSIDE RECORDS SUMMARY | 2023-07-29 04:50 | External Medical Summary ---
Author Name Unknown Address Unknown Organization K1F:LABORATORY [facility] - [address] [place] [address] Laboratory Report Ordering Provider Test Date Status TIFFANY DERAS 06/28/2023 20:45:09 Final Less than 0.5 ng/mL: Low ris k for progression to sepsis. Review patients condition for localized infections.

0.5 to 2.0 ng/mL: Intermediate risk for progresion to sepsis. Review underlying conditions. Recommend repeat PCT after 6 hours has elapsed.

Greater than 2.0 ng/mL: high risk for progression to sepsis unless other causes are known. Observation Date Value Abnormality Reference (Units ) Status Procalcitonin [Mass/volume] in Serum or Plasma by Immunoassay 06/28/2023 20:45:09 <0.02 <0.10 (ng/mL) Final Performing Location LABORATORY [facility] - [address] [place] [address]
--- OUTSIDE RECORDS SUMMARY | 2023-07-29 04:50 | External Medical Summary ---
Author Name Unknown Address Unknown Organization K1F:LABORATORY [facility] - [address] [place] [address] Laboratory Report Ordering Provider Test Date Status TIFFANY DERAS 06/28/2023 20:45:09 Final hCG can serve as a screening [...] +Beta subunit [Units/volume] in Serum or Plasma 06/28/2023 20:45:09 <0.1 <=1.0 (mIU/mL) Final Performing Location LABORATORY [facility] - [address] [place] [address]
--- OUTSIDE RECORDS SUMMARY | 2023-07-29 04:50 | External Medical Summary ---
Author Name Unknown Address Unknown Organization K01:LABORATORY [facility] - [address] [facility] [address] [place] [address] Laboratory Report Ordering Provider Test Date Status PÉREZ HILTON 05/07/2023 10:07:02 Final Observation Date Value Abnormality Reference (Units ) Status Trichomonas vaginalis rRNA [Presence] in Specimen by KIMBERLY with probe detection 05/07/2023 10:07:02 Negative Negative Final No Trichomonas vaginalis det ected by offbearer mediated nucleic acid amplification. Performing Location LABORATORY [facility] - [address] [place] [address]
--- OUTSIDE RECORDS SUMMARY | 2023-07-29 04:50 | External Medical Summary ---
Author Name Unknown Address Unknown Organization K01:[facility]ATORY [facility] [place] [address] [facility] [address] [facility] [address] Laboratory Report Ordering Provider Test Date Status PÉREZ HILTON 03/07/2023 11:04:42 Final <10,000 colonies/ml normal f micah, one colony type Observation Date Value Abnormality Reference (Units ) Status Bacteria identified in Specimen by Culture 03/07/2023 11:04:42 [id number]^ESCHE RICHIA COLI Abnormal Final 10,000 to 100,000 colonies/m L Escherichia coli Performing Location [facility]ORY [facility] [place] [address] [facility] [address] [facility] [address] Ordering Provider Test Date Status PÉREZ HILTON 03/07/2023 11:04:42 Final Observation Date Value Abnormality Reference (Units ) Status Ampicillin 03/07/2023 11:04:42 >=32 Resistant Final Ampicillin + Sulbactam 03/07/2023 11:04:42 16 Intermediate Final Cefazolin 03/07/2023 11:04:42 <=4 Susceptible Final Cefepime susceptibility 03/07/2023 11:04:42 <=1 Susceptible Final Ceftriaxone suceptibility 03/07/2023 11:04:42 <=1 Susceptible Final Ciprofloxacin 03/07/2023 11:04:42 <=0.25 Susceptible Final Due to serious side effects, the FDA has advised against using Ciprofloxacin to treat uncomplicated UTIs and respiratory tract infections unless there are no alternative treatment options. Gentamicin susceptibility 03/07/2023 11:04:42 <=1 Susc eptible Final Levofloxacin susceptibility 03/07/2023 11:04:42 <=0.12 Chen sceptible Final Due to serious side effects, the FDA has advised against using Levofloxacin to treat uncomplicated UTIs and respiratory tract infections unless there are no alternative treatment options. Nitrofurantoin susceptibility 03/07/2023 11:04:42 <=16 Susceptible Final Piperacillin + Tazobactamsusceptibility 03/07/2023 11:04:42 <=4 Susceptible Final TMP-SMZ susceptibility 03/07/2023 11:04:42 >=320 Resista nt Final Test: Culture, Urine, Quanti tative
Specimen Source: Urine, Clean Catch
Specimen Type: Urine
Specimen Date: 03/07/2023 11:04 AM
Result Date: 03/09/2023 2:56 PM
Result Status: Final result
Abnormal: Yes
Resulting Lab: LAB[facility]ATORY [facility]
[address]
[facility] [address]

CULTURE

10,000 to 100,000 colonies/mL Escherichia coli (Abnormal)

<10,000 colonies/ml normal willian, one colony type

SUSCEPTIBILITY

Escherichia coli
METHOD MICROBROTH DILUTIONS

AMPICILLIN >=32 Resistant
AMPICILLIN/SULBACTAM 16 Intermediate
CEFAZOLIN <=4 Susceptible
CEFEPIME <=1 Susceptible
CEFTRIAXONE <=1 Susceptible
CIPROFLOXACIN <=0.25 Susceptible [1]
GENTAMICIN <=1 Susceptible
LEVOFLOXACIN <=0.12 Susceptible [2]
NITROFURANTOIN <=16 Susceptible
PIPERACILLIN TAZOBACTAM <=4 Susceptible
TRIMETH/SULFAMETHOXAZOLE >=320 Resistant

[1] Due to serious side effects, the FDA has advised against using
Ciprofloxacin to treat uncomplicated UTIs and respiratory tract infections
unless there are no alternative treatment options.

[2] Due to serious side effects, the FDA has advised against using
Levofloxacin to treat uncomplicated UTIs and respiratory tract infections
unless there are no alternative treatment options.

null Performing Location LAB[facility]ATORY [facility] - [address] [facility] [address]
--- OUTSIDE RECORDS SUMMARY | 2023-07-29 04:50 | External Medical Summary ---
Author Name Unknown Address Unknown Organization K1F:LABORATORY [facility] - [address] [place] [address] Laboratory Report Ordering Provider Test Date Status TIFFANY DERAS 06/28/2023 20:45:09 Final Observation Date Value Abnormality Reference (Units ) Status Lipase 06/28/2023 20:45:09 102 Above high normal 13 -60 (U/L) Final Performing Location LABORATORY [facility] - [address] [place] [address]
--- OUTSIDE RECORDS SUMMARY | 2023-07-29 04:50 | External Medical Summary ---
Author Name Unknown Address Unknown Organization K1F:[facility]ORY [facility] - [address] [place] [address] Laboratory Report Ordering Provider Test Date Status BRAEDENTIFFANY Andrea 06/28/2023 20:45:09 Final Observation Date Value Abnormality Reference (Units ) Status SYNC LEUKOCYTES IN BLOOD BY AUTOMATED COUNT 06/28/2023 20:45:09 18.07 Above high normal 4.00-10.80 (K/uL) Final Segs 06/28/2023 20:45:09 83.2 Above high normal 40.0-75.0 (%) Final Lymphs % 06/28/2023 20:45:09 11.4 Below low normal 18.0-42.0 (%) Final Monos 06/28/2023 20:45:09 4.4 1.0-11.0 (%) Final Eosinophils 06/28/2023 20:45:09 0.1 0.0-6.0 (%) Final Basos 06/28/2023 20:45:09 0.5 0.0-2.0 (%) Final Immature Granulocyte, Percent 06/28/2023 20:45:09 0.4 0.0-2.0 (%) Final Absolute Segs 06/28/2023 20:45:09 15.03 Above high normal 1.80-7.70 (K/uL) Final Lymphs, absolute 06/28/2023 20:45:09 2.06 1.00-4.80 (K/ul) Final Monos, Abs 06/28/2023 20:45:09 0.80 0.00-1.10 (K/uL) Final Eos, Abs 06/28/2023 20:45:09 0.02 0.00-0.70 (K/uL) Final Basos, Abs 06/28/2023 20:45:09 0.09 0.00-0.20 (K/uL) Final Immature Granulocytes, Number 06/28/2023 20:45:09 0.07 0.00-0.20 (K/uL) Final Performing Location LABORATORY [facility] [address] [place] [address]
--- OUTSIDE RECORDS SUMMARY | 2023-07-29 04:50 | External Medical Summary | Summary of Care ---
Author Name Unknown Organization [facility] Address [address] [facility] [place] [address] Phone [phone] Care Team Providers Care Celebrity Manager Name Role Phone Wei Laughlin PA-C Primary Care Provider [phone] Reason for Visit * Reason Onset Date Comments Medication Refill 04/30/2023 Encounter Details Date Type Department Care Team (Late st Contact Info) Description 04/30/2023 Telephone Hematology/Oncology, [address] [phone] Collins Bales MD [address] [place] [address] Medication Refill Allergies No known active allergiesdocumented as of this encounter (statuses as of 04/30/2023) Medications Medication Sig Dispensed Refills Start Date [...] with urination 10 Tablet 0 03/08/2023 Active documented as of this encounter (statuses as of 04/30/2023) Active Problems Problem Noted Date Diagnosed Date [...] as of this encounter (statuses as of 04/30/2023) Resolved Problems Problem Noted Date Diagnosed Date [...] as of this encounter (statuses as of 04/30/2023) Immunizations Name Administration Dates Next Due H1N1 [...] encounter Miscellaneous Notes * Telephone Encounter - Laura, Claudia Hand, AYLIN - 04/30/2023 2:46 PM EST [facility] Cyanocobalamin 1,000 MCG/ML VL Qty 3 documented in this encounter Plan of Treatment Upcoming Encounters Date Type Department Care Team (Late st Contact Info) Description 05/07/2023 9:20 AM EST Office Visit [facility] [address] [place] [address] Stefanie Avila PA-C [facility] [facility] [address] 07/24/2023 11:00 AM EST Office Visit Nutrition & Weight Management, [facility] [address] [place] [address] Rachele Mike PA-C [address] [place] [address] 10/09/2023 4:20 PM EDT Office Visit [facility] [address] [place] [phone] Wei Laughlin PA-C [facility] [place] [phone] 11/13/2023 1:10 PM EDT Office Visit Dermatology [facility] [address] [place] [address] Ruth Ann Teran PA-C [address] [place] [address] Health Maintenance Due Date Last Done Comments [...] filedocumented as of this encounter Care Teams Celebrity Manager Relationship Specialty Start Date End Date Wei Laughlin PA-C [address] [place] [phone] PCP - General Physician Urban Planning Teacher 03/07/16 documented as of this encounter
--- OUTSIDE RECORDS SUMMARY | 2023-07-29 04:50 | External Medical Summary | Summary of Care ---
Author Name Unknown Organization [facility] Address [address] [facility] [place] [address] Phone [phone] Care Team Providers Care Shipbuilding Draftsperson Name Role Phone Wei Laughlin PA-C Primary Care Provider [phone] Reason for Visit * Reason Onset Date Comments Medication Refill 04/30/2023 Encounter Details Date Type Department Care Team (Late st Contact Info) Description 04/30/2023 Telephone Hematology/Oncology, [address] [phone] Collins Bales MD [address] [place] [address] Medication Refill Allergies No known [...] AYLIN - 04/30/2023 2:46 PM EST [facility] Cyanocobalamin 1,000 MCG/ML VL Qty 3 documented in this encounter Plan of Treatment Upcoming Encounters Date Type Department Care Team (Late st Contact Info) Description 05/07/2023 9:20 AM EST Office Visit [facility] [address] [facility] [place] [place] [address] Stefanie Avila PA-C [facility] [facility] [place] [address] 07/24/2023 11:00 AM EST Office Visit Nutrition & Weight Management, [facility] [address] [place] [address] Rachele Mike PA-C [address] [place] [address] 10/09/2023 4:20 PM EDT Office Visit [facility] [address] [place] [phone] Wei Laughlin PA-C [facility] [place] [phone] 11/13/2023 1:10 PM EDT Office Visit Dermatology [facility] [address] [place] [address] Ruth Ann Teran PA-C [address] [place] [address] Health Maintenance Due Date Last Done Comments [...] filedocumented as of this encounter Care Teams Shipbuilding Draftsperson Relationship Specialty Start Date End Date Wei Laughlin PA-C [address] [place] [phone] PCP - General Physician Junior Graphic Designer 03/07/16 documented as of this encounter
--- OUTSIDE RECORDS SUMMARY | 2023-07-29 04:51 | External Medical Summary ---
Author Name Unknown Address Unknown Organization K01:LABORATORY [facility] - [address] [place] [id number] Laboratory Report Ordering Provider Test Date Status SATYA WU 02/28/2023 14:59:53 Final Observation Date Value Abnormality Reference (Units) Status Bacteria identified in Specimen by Culture 02/28/2023 14:59:53 No significant growth Final Test: Culture, Urine, Quant itative
Specimen Source: Urine, Clean Catch
Specimen Type: Urine
Specimen Date: 02/28/2023 2:59 PM
Result Date: 03/01/2023 5:38 PM
Result Status: Final result
Resulting Lab: LABORATORY [facility]
[address]
[place] [id number]

CULTURE

No significant growth

null Performing Location LABORATORY [facility] - [address] [facility] [address]
--- OUTSIDE RECORDS SUMMARY | 2023-07-29 04:51 | External Medical Summary | Summary of Care ---
Author Name Unknown Organization [facility] Address [address] [facility] [place] [address] Phone [phone] Care Team Providers Care Process Automation Engineer Name Role Phone Wei Laughlin PA-C Primary Care Provider [phone] Reason for Referral * Precert (Within 24 hrs (call dept; emergent)) - Pending Review Specialty Diagnoses / Procedures Referred By Contac t Referred To Contact Radiology Diagnoses Right flank pain Gross hematuria Pelvic pressure in female Procedures CT ABD/PELVIS WO IV/ORAL CONTRAST Stefanie Avila PA-C [address] [place] [address] Referral ID Status Reason Start Date Expiration Date V isits Requested Visits Authorized [id number] Pending Review 03/06/2023 999 999 Reason for Visit * Reason Comments Acute Lower back pain wrap s around to lower bad with a lot of pressure. Burning with urination and feels like she has to void constantly. Finished bactrim. Has 1 pyridium left which does help. Tramadol also helped but not taken any since Sunday. Vomiting on Sunday. UA and cx done on 02/28. Encounter Details Date Type Department Care Team Description 03/06/2023 Office Visit [facility] [address] [facility] [place] [id number] Stefanie Avila PA-C [address] [facility] [address] [facility] [place] [place] [id number] Right flank pain*; Gross hematuria; Pelvic pressure in female; History of kidney stones Allergies No known active allergiesdocumented as of [...] mass index (BMI) of 45.0-49.9 in adult /08/201003/07/2017 Overview: ICD-10 update of inactive term Major [...] Sign Reading Time Taken Comments Blood Pressure 118/78 03/06/2023 10:00 AM EDT Pulse 87 03/06/2023 10:00 AM EDT Temperature 36.9 C (98.4 F) 03/06/2023 10:00 AM E DT Respiratory Rate 15 03/06/2023 10:00 AM EDT Oxygen Saturation 98% 03/06/2023 10:00 AM EDT Inhaled Oxygen Concentration - - Weight 95.4 kg (210 lb 6.4 oz) 03/06/2023 10:00 AM EDT Height - - Body Mass Index 35.01 01/16/2023 9:50 AM EDT documented in this encounter Progress Notes * Stefanie Avila PA-C - 03/06/2023 10:04 AM EDT Subjective: Trisha Arias is a 37 year old female. Chief Complaint Patient presents with Acute Lower back pain wraps around to lower bad with a lot of pressure. Burning with urination and feels like she has to void constantly. Finished bactrim. Has 1 pyridium left which does help. Tramadol also helped but not taken any since Sunday. Vomiting on Sunday. UA and cx done on 02/28. HPI: Patient presents for continued LBP and pelvic pressure x 9 days. Evaluated 02/28 and treated for Bactrim for suspected UTI. Final urine culture is negative for infection. Urinalysis shows large blood and she's having gross hematuria as well. Hx of kidney stones x 2.5 years ago. Pain was worse on Sunday and had an episode of vomiting. OV 02/28 - Erna Wynne MD: She has a h/o kidney stones, but it has been a couple of years. 3 days ago she had pain in her right low back, which radiated to her front, and she immediately thought it was a kidney stone. The pain was on and off and she tried to drink a lot of water. When the pain was bad, she has thrown up twice. The next day she started to get a pressure in her bladder area like she constantly has to pee. She does have pain w/ urination. She has had UTIs before. If it weren't for the back pain, she would think she had a UTI. She has been taking Azo and motrin which helps some. Philippe usually gives her tramadol for kidney stones, and Bactrim for UTIs. She has no h/o drug abuse. She is currently on her period and having heavy flow. She does have 2 herniated discs in her back, but this back pain is different. She takes fluoxetine for anxiety and depression, and she thinks it's working good. No SI/HI. She doesn't want the flu shot today. PMH: Patient Active Problem List Diagnosis Code [...] by mouth every evening.) 84 Tablet 4 Gabapentin 300 MG Oral Capsule (Neurontin) Take by mouth 1 Capsule in by mouth 2 times per day 180 Capsule 3 FLUoxetine HCl 20 MG Oral Capsule (PROzac) Take 1 Capsule by mouth in the morning. 90 Capsule 3 Levothyroxine Sodium 50 MCG Oral Tablet (Levoxyl) Take 1 Tablet by mouth in the morning. 90 Tablet 3 Spironolactone 50 MG Oral Tablet (Aldactone) Take 1 Tablet by mouth in the morning. 90 Tablet 1 Cyanocobalamin 1000 MCG/ML Injection Solution (Cyanocobalamin) Inject 1,000 mcg into a large muscleevery 30 days. 1 mL 11 Ondansetron 4 MG Oral Tablet Disintegrating (Zofran) Place 1 Tablet on tongue every 8 hours as needed for Nausea. dissolve on tongue. 20 Tablet 0 Wegovy 2.4 MG/0.75ML Subcutaneous Solution Auto-injector (Semaglutide-Weight Management) Inject 2.4mg under the skin once a week for 28 days. 9 mL 1 Phenazopyridine HCl 200 MG Oral Tablet (Pyridium) Take 1 Tablet by mouth 3 times a day as needed for Pain, Moderate. After meals for pain with urination 10 Tablet 0 traMADol HCl 50 MG Oral Tablet (Ultram) Take 1 Tablet by mouth every 8 hours as needed for Pain, Severe. 15 Tablet 0 Tretinoin 0.025 % External Cream Apply to clean and moisturized face every other night x 2-3 weeks and then increase to nightly as tolerated; apply to dry skin 135 g 3 tiZANidine HCl 4 MG Oral Tablet (Zanaflex) Take 1 Tablet by mouth every 8 hours as needed for Muscle spasms. 90 Tablet 3 Omeprazole 40 MG Oral Capsule Delayed Release (PriLOSEC) TAKE 1 CAPSULE BY MOUTH IN THE MORNING AND1 CAPSULE BEFORE BEDTIME 180 Capsule 3 Syringe Luer Lock 25G X 5/8" 3 ML For vitamin B12 injections 50 Each 0 NovoFine 32G X 6 MM (NOVOFINE 32G PEN NEEDLE) Use with Saxenda pen (Patient not taking: Reported on02/28/2023) 50 Each 2 No current facility-administered medications for this visit. [...] and get opinion from Plastic Surgeon Jamie Reynolsd MD 01/12/2016 11:26 PM Esophageal reflux Family [...] performed by Rosa Tate DO at ENDOSCOPY [facility] INJECT DX/THER SUBSTANCE INTERLAMINAR CERVICAL/THORACIC W IMAGE GUIDE N/A 12/22/2021 INJECTION SPINE LUMBAR CERVICAL OR THORACIC performed by Elia Sanchez MD at OR [facility] INJECT DX/THER SUBSTANCE INTERLAMINAR LUMBAR/SACRAL W IMAGE GUIDE N/A 09/05/2018 INJECTION SPINE LUMBAR OR SACRAL performed by Margarita Metcalf MD at OR [facility] INJECT DX/THER SUBSTANCE INTERLAMINAR LUMBAR/SACRAL W IMAGE GUIDE N/A 12/25/2019 INJECTION SPINE LUMBAR OR SACRAL performed by Margarita Metcalf MD at OR [facility] INJECT DX/THER SUBSTANCE INTERLAMINAR LUMBAR/SACRAL W IMAGE GUIDE 09/30/2020 INJECTION SPINE LUMBAR OR SACRAL performed by David Woodward DO at OR [facility] L-/S-SPINE PARAVERTEBRAL FACET INJ,1 LEVEL Right 10/04/2018 L-/S-SPINE PARAVERTEBRAL FACET INJ, 1 LEVEL performed by Margarita Metcalf MD at OR [facility] L-/S-SPINE PARAVERTEBRL FACET INJ,2 LEVELS Right 10/04/2018 L-/S-SPINE PARAVERTEBRAL FACET INJ, 2 LEVELS performed by Margarita Metcalf MD at OR [facility] L-/S-SPINE PARAVERTEBRL FACET INJ,3 LEVELS Right 10/04/2018 L-/S-SPINE PARAVERTEBRAL FACET INJ, 3 OR MORE LEVELS performed by Margarita Metcalf MD at OR [facility] MRI L SPINE W WO CONTRAST 02/20/2011 Mild early degenerative changes at L4-L5. NAIL BED, PERMANENT REMOVAL Bilateral 2016 EXCISION NAIL PARTIAL OR COMPLETE INGROWN performed by Priscila Brantley DPM at OR [facility] PFT/BA BRONCHODILATOR 09/30/2021 normal SLEEVE GASTRECTOMY, LAPROSCOPY [...] negative unless mentioned in HPI. Objective: BP 118/78 | Pulse 87 | Temp 36.9 C (98.4 F) (Tympanic) | Resp 15 | Wt 95.4 kg (210 lb 6.4 oz) |LMP 02/23/2023 (Exact Date) | SpO2 98% | BMI 35.01 kg/m | BSA 2.09 m Physical Exam: General: alert, no distress, + uncomfortable Neck: supple, no adenopathy Heart: regular rate & rhythm, no murmur, and no gallops Lungs: chest symmetric with normal AP diameter, no chest deformities noted, no chest wall tenderness, lungs clear to auscultation Pulses: radial=2/4, posterior tibial=2/4 Abdomen: abdomen soft, right pelvic and right flank TTP , normal bowel sounds Extremities: less than 2 second capillary refill, no edema, no clubbing, no cyanosis Skin: skin color, texture, turgor are normal, no rashes or significant lesions ASSESSMENT/PLAN: Right flank pain (Primary) Gross hematuria Pelvic pressure in female History of kidney stones - CT ABD/PELVIS WO IV/ORAL CONTRAST Follow-up: Return if symptoms worsen or fail to improve. Check-out note: Schedule first available PAP with me in [place]. Stefanie Avila PA-C documented in this encounter Nursing Notes * Corie Lewis CMA - 03/06/2023 9:59 AM EDT Chief Complaint Patient presents with Acute Lower back pain wraps around to lower bad with a lot of pressure. Burning with urination and feels like she has to void constantly. Finished bactrim. Has 1 pyridium left which does help. Tramadol also helped but not taken any since Sunday. Vomiting on Sunday. UA and cx done on 02/28. Patient has been verbally educated on the need or importance of Immunizations: flu, hep b documented in this encounter Plan of Treatment Upcoming Encounters Date Type Specialty Care Team Description 03/06/2023 Appointment Radiology 05/07/2023 Office Visit Family Medicine Stefanie Avila PA-C [address] [facility] [address] [place] [address] 07/24/2023 Office Visit Gastroenterology Rachele Mike PA-C [address] [place] [address] 10/09/2023 Office Visit Family Medicine Wei Laughlin PA-C [address] [place] [address] 11/13/2023 Office Visit Dermatology Ruth Ann Teran PA-C [address] [facility] [place] [address] Scheduled Orders Name Type Priority Associated Diagnoses Orde r Schedule CT ABD/PELVIS WO IV/ORAL CONTRAST Medical Imaging STAT Right flank pain Gross hematuria Pelvic pressure in female Ordered: 03/06/2023 Health Maintenance Due Date Last Done Comments Hepatitis B (1 of 3 - 3-dose series) 1986 COVID-19 Vaccine (#1) 1986 HPV/Co-Test 2016 Cervical Cancer Screening 07/04/2021 Pap Smear 07/04/2021 07/04/2018, 05/2014, 01/26/2015, Additional history exists Influenza Vaccine [...] specified symptom associated with female genital organs History of kidney stones Personal history of urinary calculi documented in this encounter Care Teams Process Automation Engineer Relationship Specialty Start Date End Date Wei Laughlin PA-C [address] [facility] [place] [address] PCP - General Physician Real Estate Representative 03/07/16 documented as of this encounter
--- OUTSIDE RECORDS SUMMARY | 2023-07-29 04:51 | External Medical Summary ---
Author Name Unknown Address Unknown Organization K01:LABORATORY [facility] - [address] [facility] [address] Laboratory Report Ordering Provider Test Date Status SATYA WU 02/28/2023 14:59:53 Final Observation Date Value Abnormality Reference (Units) Status Color of Urine by Auto 02/28/2023 14:59:53 Yellow Colorless, Light Yellow, Yellow, Dark Yellow Final Clarity, Urine 02/28/2023 14:59:53 Slightly Cloudy Abnormal Clear Final Glucose [Mass/volume] in Urine by Automated test strip 02/28/2023 14:59:53 Negative Negative (mg/dL) Final Bilirubin.total [Presence] in Urine by Automated test strip 02/28/2023 14:59:53 Negative Negative Final Ketones [Mass/volume] in Urine by Automated test strip 02/28/2023 14:59:53 Trace Abnormal Negative (mg/dL) Final Specific gravity, Urine 02/28/2023 14:59:53 1.036 Above high normal 1.003-1.030 Final Hemoglobin [Presence] in Urine by Automated test strip 02/28/2023 14:59:53 Large Abnormal Negative Final pH, Urine 02/28/2023 14:59:53 6.0 5.0-7.5 (Units) Final Protein [Mass/volume] in Urine by Automated test strip 02/28/2023 14:59:53 30 Abnormal Negative (mg/dL) Final Urobilinogen [Mass/volume] in Urine by Automated test strip 02/28/2023 14:59:53 Normal Normal (mg/dL) Final Nitrite [Presence] in Urine by Automated test strip 02/28/2023 14:59:53 Negative Negative Final Leukocyte esterase [Presence] in Urine by Automated test strip 02/28/2023 14:59:53 Negative Negative Final RBC, Urine 02/28/2023 14:59:53 50+ Abnormal 0-2 (/HPF) Final WBC, Urine 02/28/2023 14:59:53 3-5 Abnormal 0-2 (/HPF) Final Bacteria [#/area] in Urine sediment by Microscopy high power field 02/28/2023 14:59:53 26-50 Abnormal 0-25 (/HPF) Final Performing Location LABORATORY [facility] - [facility] [address] [facility] [address]
--- OUTSIDE RECORDS SUMMARY | 2023-07-29 04:51 | External Medical Summary | Summary of Care ---
Author Name Unknown Organization [facility] Address [address] [facility] [place] [address] Phone [phone] Care Team Providers Care Punchboard Stuffer Name Role Phone Wei Laughlin PA-C Primary Care Provider [phone] Reason for Visit * Reason Onset Date Comments Test Results 03/06/2023 Encounter Details Date Type Department Care Team Description 03/06/2023 Telephone [facility] [address] [facility] [place] [id number] Stefanie Avila PA-C [address] [facility] [place] [address] Test Results Allergies No known active [...] encounter Miscellaneous Notes * Telephone Encounter - Stefanie Avila PA-C [...] Visit Family Medicine Stefanie Avila PA-C [address] [facility] [address] [place] [address] 07/24/2023 Office Visit Gastroenterology Rachele Mike PA-C [address] [place] [phone] 10/09/2023 Office Visit Family Medicine Wei Laughlin PA-C [address] [place] [address] 11/13/2023 Office Visit Dermatology Ruth Ann Teran PA-C [address] [facility] [place] [address] Scheduled Orders Name Type Priority Associated Diagnoses [...] organs documented in this encounter Care Teams Punchboard Stuffer Relationship Specialty Start Date End Date Wei Laughlin PA-C [address] [facility] [address] [place] [address] PCP - General Physician Curing Room Worker 03/07/16 documented as of this encounter
--- OUTSIDE RECORDS SUMMARY | 2023-07-29 04:51 | External Medical Summary | Summary of Care ---
Author Name Unknown Organization [facility] Address [address] [facility] [place] [address] Phone [phone] Care Team Providers Care Float Tender Name Role Phone Wei Laughlin PA-C Primary Care Provider [phone] Reason for Visit * Reason Onset Date Comments Encounter Created in Error 02/16/2023 Encounter Details Date Type Department Care Team Description 02/16/2023 Orders Only Outcomes Research Department [address] [facility] [place] [address] Lashae Mendez CHRA Encounter created in error Allergies No known active allergiesdocumented as of this encounter (statuses as of 02/16/2023) Medications Medication Sig Dispensed Refills Start Date [...] Saxenda pen 50 Each 2 01/17/2023 Active Saxenda 18 MG/3ML Subcutaneous Solution Pen-injector (Liraglutide -Weight Management)Indicatio ns:Obesity, Class II, BMI 35-39.9, isolated Titrate up starting with 0.6 mg subcutaneous daily, increasing by 0.6 mg weekly until a target dose of 3mg 15 mL 2 01/17/2023 Active Cyanocobalamin 1000 MCG/ML Injection Solution (Cyanocobalamin)Sanna cations:Vitamin B12 deficiency (dietary) anemia Inject 1,000 mcg into a large muscle every 30 days. 1 mL 11 01/22/2023 Active Ondansetron 4 MG Oral Tablet Disintegrating (Zofran) Place 1 Tablet on tongue every 8 hours as needed for Nausea. dissolve on tongue. 20 Tablet 0 02/14/2023 Active documented as of this encounter (statuses as of 02/16/2023) Active Problems Problem Noted Date Moderate recurrent [...] as of this encounter (statuses as of 02/16/2023) Resolved Problems Problem Noted Date Resolved Date [...] as of this encounter (statuses as of 02/16/2023) Immunizations Name Administration Dates Next Due H1N1 2009 Influenza, IM 06/22/2009 HPV Vaccine, 4-Valent 01/14/2008,09/16/2007,06/28 Seasonal Influenza, PF, 6 mo ns & Above, IM , (Flulaval) 04/12/2022,03/22/2021 Seasonal Influenza, Quadriva lent, No Preserve, [...] on file documented as of this encounter Progress Notes * HEATH Reyes - 02/16/2023 2:00 PM EDT This encounter was created in error. 02/16/2023, 2:00 PM, HEATH Reyes documented in this encounter Plan of Treatment Upcoming Encounters Date Type Specialty Care Team Description 07/24/2023 Office Visit Gastroenterology Rachele Mike PA-C [address] [address] 10/09/2023 Office Visit Family Medicine Wei Laughlin PA-C [address] [facility] [place] [address] 11/13/2023 Office Visit Dermatology Ruth Ann Teran PA-C [address] [facility] [place] [address] Health Maintenance Due Date Last Done Comments Hepatitis B (1 of 3 - 3-dose series) 1986 COVID-19 Vaccine (#1) 1986 HPV/Co-Test 2016 Cervical Cancer Screening 07/04/2021 Pap Smear 07/04/2021 07/04/2018, 0 05/2014, 01/26/2015, Additional history exists Influenza Vaccine (FLU shot) (#1) 2023 04/12/2022, 03/22/2021, 05/07/2020, Additional history exists TSH 09/27/2023 09/26/2022, 08/26, 08/31/2020, Additional history exists Depression Screening 11/07/2023 11/06/2022 Diabetes Screening 01/16/2026 01/16/2023, 0 01/16/2023, 09/26/2022, Additional history exists DTaP,Tdap,and Td Vaccines (3 - Td or Tdap) 03/17/2029 03/17/2019, 11/21/2007 GARDASIL-HPV IMMUNIZATION SERIES Completed 01/14/2008, 09/16/2007, 07/16/2007 Hepatitis C Screening Completed 12/09/2021 , 12/09/2021, 12/09/2021 MENINGOCOCCAL (MENACTRA/MENVEO) Aged Out No longer eligible based on patient's age to complete this topic Pneumococcal Vaccine: Pediatrics (0 to 5 Years) and At-Risk Patients (6 to 64 Years) Aged Out No longer eligible based on patient's age to complete this topic documented as of this encounter Medical Devices Not on filedocumented as of this encounter Visit Diagnoses Diagnosis Encounter Created In Error- Primary documented in this encounter Care Teams Float Tender Relationship Specialty Start Date End Date Wei Laughlin PA-C [facility] [place] [address] PCP - General Physician Watchstander 03/07/16 documented as of this encounter
--- OUTSIDE RECORDS SUMMARY | 2023-07-29 04:51 | External Medical Summary | Summary of Care ---
Author Name Unknown Organization [facility] Address [address] [facility] [place] [address] Phone [phone] Care Team Providers Care Advertising Photographer Name Role Phone Wei Laughiln PA-C Primary Care Provider [phone] Reason for Visit * Reason Comments Acute Right lower back nicolasa n radiating to the front, abdominal pressure, pt currently on her menstrual cycle Encounter Details Date Type Department Care Team Description 02/28/2023 Office Visit [facility] [address] [facility] [place] [id number] Sami Wynne MD [address] [facility] [place] [id number] Acute cystitis with hematuria*; Moderate recurrent major depression (HCC); Kidney stone Allergies No known active allergiesdocumented as of this encounter (statuses as of 02/28/2023) Medications Medication Sig Dispensed Refills Start Date End Date Status Clindamycin Phosphate 1 % External Lotion Apply to face every morning 180 mL 3 09/09/2021 Active valACYclovir HCl 500 MG Oral Tablet (Valtrex) TAKE 1 TAB BY MOUTH DAILY. UNTIL FINISHED INDICATIONS: NEEDED FOR COLD SORES. 30 Tablet 5 10/12/2021 Active Additional Information Patient not taking.Reported on 02/28/2023 Norethindrone 0.35 MG Oral TabletIndications:Me norrhagia with [...] Additional Information Patient not taking.Reported on 02/28/2023 Gabapentin 300 MG Oral Capsule (Neurontin) Take [...] on tongue. 20 Tablet 0 02/14/2023 Active Additional Information Patient not taking.Reported on 02/28/2023 Wegovy 2.4 MG/0.75ML Subcutaneous Solution Auto-injector (Semaglutide-Weight Management) Inject 2.4 mg under the skin once a week for 28 days. 9 mL 1 02/19/2023 3 Active Additional Information Patient not taking.Reported on 02/28/2023 Sulfamethoxazole-Tri methoprim 800-160 MG Oral Tablet (Bactrim DS)Indications:Acute cystitis with hematuria Take 1 Tablet by mouth in the morning and 1 Tablet before bedtime. Do all this for 3 days. Until gone. 6 Tablet 0 02/28/2023 Active Phenazopyridine HCl 200 [...] as of this encounter (statuses as of 02/28/2023) Active Problems Problem Noted Date Moderate recurrent [...] as of this encounter (statuses as of 02/28/2023) Resolved Problems Problem Noted Date Resolved Date [...] as of this encounter (statuses as of 02/28/2023) Immunizations Name Administration Dates Next Due H1N1 [...] Date Smoking Tobacco: Never Smokeless Tobacco: Never Tobacco Cessation:Counseling Given: Not Answered Alcohol Use Standard Drinks/Week Comments No 0 [...] Sign Reading Time Taken Comments Blood Pressure 118/76 02/28/2023 2:29 PM EDT Pulse 75 02/28/2023 2:29 PM EDT Temperature 36.3 C (97.4 F) 02/28/2023 2:29 PM ED T Respiratory Rate 18 02/28/2023 2:29 PM EDT Oxygen Saturation 98% 02/28/2023 2:29 PM EDT Inhaled Oxygen Concentration - - Weight 97 kg (213 lb 14.4 oz) 02/28/2023 2:29 PM EDT Height - - Body Mass Index 35.59 01/16/2023 9:50 AM EDT documented in this encounter Progress Notes * Sami Wynne MD - 02/28/2023 2:40 PM EDT Images from the original note were not included. History of Present Illness Trisha Arias is a 37 year old female that presents for Acute (Right lower back pain radiating to the front, abdominal pressure, pt currently on her menstrual cycle) Her PCP is Philippe Laughlin. She has a h/o kidney stones, but [...] She doesn't want the flu shot today. ROS: No cp/sob Physical Exam Vitals: 02/28/23 1429 Temp: 36.3 C (97.4 F) Pulse: 75 Resp: 18 SpO2: 98% BP: 118/76 Physical Exam Vitals reviewed. Constitutional: General: She is not in acute distress. Appearance: Normal appearance. She is not ill-appearing. Cardiovascular: Rate and Rhythm: Normal rate and regular rhythm. Heart sounds: No murmur heard. No friction rub. No gallop. Pulmonary: Effort: Pulmonary effort is normal. Breath sounds: No wheezing, rhonchi or rales. Abdominal: General: There is no distension. Palpations: Abdomen is soft. Tenderness: There is no abdominal tenderness. There is no right CVA tenderness, left CVA tenderness, guarding or rebound. Neurological: Mental Status: She is alert. I have reviewed the following results: None Assessment and Plan UTI (urinary tract infection) Symptoms c/w UTI and kidney stone; difficult to differentiate. Will treat presumptively for both. Continue to drink plenty of water. - URINALYSIS, REFLEX TO MICROSCOPIC; Future - CULTURE, URINE, QUANTITATIVE; Future - Sulfamethoxazole-Trimethoprim 800-160 MG Oral Tablet (Bactrim DS); Take 1 Tablet by mouth in the morning and 1 Tablet before bedtime. Do all this for 3 days. Until gone. - Phenazopyridine HCl 200 MG Oral Tablet (Pyridium); Take 1 Tablet by mouth 3 times a day as neededfor Pain, Moderate. After meals for pain with urination Moderate recurrent major depression (HCC) Doing well. Continue fluoxetine. Kidney stone As above for UTI. - traMADol HCl 50 MG Oral Tablet (Ultram); Take 1 Tablet by mouth every 8 hours as needed for Pain,Severe. This patient was advised that this is a short term script for a maximum of 3-5 days due to the addictive property of this medication. Patient is aware there will be no refills given without an additional appointment with their primary care provider. They were also made aware that this medication isnot to be taken with alcohol or other sedative substances. Use of other sedating medications such as, but not limited to, benzodiazepines, muscle relaxers or hypnotics must be disclosed to provider. Wrap-Up Follow Up: Return if symptoms worsen or fail to improve. Time: I spent a total of 20-29 minutes (exact time 20 mins) on the date of service in preparation, delivery, and documentation of the care provided to Trisha Arias excluding any time spent in the performance of separately billed services. documented in this encounter Nursing Notes * Sarah Dial LPN - 02/28/2023 2:27 PM EDT Chief Complaint Patient presents with Acute Right lower back pain radiating to the front, abdominal pressure, pt currently on her menstrual cycle Patient has been verbally educated on the need or importance of Immunizations: Flu. Hep B documented in this encounter Plan of Treatment Upcoming Encounters Date Type Specialty Care Team Description 07/24/2023 Office Visit Gastroenterology Rachele Mike PA-C [address] [place] [id number] 10/09/2023 Office Visit Family Medicine Wei Laughlin PA-C [address] [place] [address] 11/13/2023 Office Visit Dermatology Ruth Ann Teran PA-C [address] [facility] [place] [address] Scheduled Orders Name Type Priority Associated Diagnoses Orde r Schedule URINALYSIS, REFLEX TO MICROSCOPIC Lab Routine Acute cystitis with hematuria Expected: 02/28/2023, Expires: 02/29/2024 CULTURE, URINE, QUANTITATIVE Lab Routine Acute cystitis with hematuria Expected: 02/28/2023, Expires: 02/29/2024 Health Maintenance Due Date Last Done Comments [...] as of this encounter Visit Diagnoses Diagnosis Acute cystitis with hematuria- Primary Acute cystitis Moderate recurrent major depression (HCC) Major depressive disorder, recurrent episode, moderate Kidney stone Calculus of kidney documented in this encounter Care Teams Advertising Photographer Relationship Specialty Start Date End Date Wei Laughlin PA-C [address] [place] [phone] PCP - General Physician Checkering Machine Adjuster 03/07/16 documented as of this encounter
[2023-07-29] MEDS: D5W AND 1/2NSS 1,000 ML IV SCH (05:30)
[2023-07-29] MEDS: METOCLOPRAMIDE HCL INJ 5 MG/ML 2 ML VIAL IV PRN (05:30)
[2023-07-29] MEDS: FAMOTIDINE 20MG IV PUSH 20 MG/5 ML SYR IV SCH (05:31)
[2023-07-29] MEDS: LEVOTHYROXINE SODIUM 50 MCG TABLET PO SCH (05:31)
[2023-07-29 06:07] LABS: Appearance Urine Clear (Clear); Bilirubin Urine Negative (Negative); Blood Urine Negative (Negative); Color Urine Yellow; Glucose Urine UA Negative (Negative); Ketones Urine 1+ (Negative); Leukocyte Esterase Urine Negative (Negative); Nitrite Urine Negative (Negative); Protein Urine Negative (Negative); Specific Gravity Urine > 1.045 (1.000-1.030); Urobilinogen Urine Negative (Negative)
[2023-07-29 08:19] LABS: Basophils # (auto) 0.05 K/uL (0.00-0.20); Basophils % (auto) 0.7 %; Eosinophils # (auto) 0.04 K/uL (0.00-0.50); Eosinophils % (auto) 0.5 %; Hematocrit (blood only) 39.8 % (37.0-47.0); Hemoglobin 13.3 g/dl (12.0-16.0); Immature Granulocytes # (auto) 0.02 K/uL (0.01-0.20); Immature Granulocytes % (auto) 0.3 %; Lymphocytes # (auto) 2.39 K/uL (1.20-3.40); Lymphocytes % (auto) 31.2 %; Mean Corpuscular Hemoglobin 28.4 pg (25.0-34.0); Mean Corpuscular Hgb Conc 33.4 g/dL (32.0-36.0); Mean Corpuscular Volume 84.9 fL (80.0-100.0); Mean Platelet Volume 11.1 fL (9.4-12.4); Monocytes # (auto) 0.64 K/uL (0.11-0.59); Monocytes % (auto) 8.4 %; Neutrophils # (auto) 4.52 K/uL (1.40-6.50); Neutrophils % (auto) 58.9 %; Platelet Count 284 K/uL (130-400); RDW Standard Deviation 37.2 fL (36.4-46.3); Red Blood Count 4.69 M/uL (4.20-5.40); White Blood Count 7.66 K/ul (4.8-10.8)
--- NOTE | 2023-07-29 08:21 | XRay Report ---
XR chest 1V portable HISTORY: 38 years-old Female lightheaded acute dizziness COMPARISON: CT abdomen and pelvis of same day TECHNIQUE: AP view of the chest FINDINGS: Cardiomediastinal and hilar silhouettes are within normal limits. No pneumothorax, pleural effusion o r airspace consolidation. Small hiatal hernia. Bones appear grossly intact. IMPRESSION: No acute process. ACT 112: Negative or not required by law. The above report was generated using voice recognition software. It may contain grammatical, syntax o r spelling errors. Electronically signed by: Wallace Espino M.D. 07/29/2023 8:20 AM
[2023-07-29 08:35] LABS: BUN Creatinine Ratio 8.4 (10-20); Calcium 8.5 mg/dl (8.6-10.3); Creatinine Clr Calc Pharmacy 101.8 ml/min; Est GFR (African American) 104.4 ml/min; Est GFR (Non-African American) 90.1 ml/min; Magnesium 1.8 mg/dl (1.7-2.4); Phosphorus 3.6 mg/dl (2.5-4.9); Potassium 3.6 mmol/L (3.5-5.1)
--- NOTE | 2023-07-29 08:35 | Electrocardiogram Report ---
Test Reason : Blood Pressure : / mmHG Vent. Rate : 073 BPM Atrial Rate : 073 BPM P-R Int : 120 ms QRS Dur : 082 ms QT Int : 394 ms P-R-T Axes : 030 018 039 degrees QTc Int : 434 ms Normal sinus rhythm Normal ECG No previous ECGs available Confirmed by Dylan Rayo ([id number]) on 07/29/2023 8:35:11 AM Referred By: REFERRED SELF Confirmed By:Dylan Rayo
[2023-07-29] MEDS: ENOXAPARIN INJ 40 MG/0.4 ML SYR SQ SCH (08:37)
[2023-07-29] MEDS: GABAPENTIN 300 MG CAP PO SCH (08:37)
--- NOTE | 2023-07-29 09:52 | Gastrointestinal Consultation ---
Date of Consultation July 29, 2023 Assessment & Plan (1) Nausea & vomiting: Pleasant lady with persistent nausea and vomiting after starting Wegovy. I am certain that her problems are related to Wegovy and are starting to wear off as she is able to tolerate some liquids now. I don't see a reason for doing EGD unless her symptoms persist. I have seen symptoms persist almost up to two weeks after stopping the meds. When she can tolerate oral then she can go home from my standpoint to follow up with her normal GI docs. History of Present Illness Reason for Consultation: nausea, vomiting Attending Physician: Marjorie Galicia MD History of Present Illness 38 year old female s/p sleeve gastrectomy in 2013 who started Wegovy one week ago. She immediately started having persistent nausea and vomiting on Sunday. On Sunday she went to her GI at [facility] and was told it was probably the Wegovy and to stop it. She finally couldn't tolerate anything by mouth and was admitted to the hospital last night. As I am seeing her she is better, the nausea isn't as bad and she was able to tolerate some liquids. She denies pain. She had no problems like this prior to the Wegovy. Allergies Allergy/AdvReac Type Severity Reaction Status Date / Time semaglutide [From Wegovy] AdvReac Severe Vomiting Verified 07/29/23 00:19 Home Medications Medication Instructions Recorded Confirmed Type cyanocobalamin (vitamin B-12) 1,000 mcg IM MONTHLY 07/29/23 07/29/23 History 1,000 mcg/mL injection solution fluoxetine 20 mg capsule 20 mg PO HS 07/29/23 07/29/23 History gabapentin 300 mg capsule 300 mg PO AMHS 07/29/23 07/29/23 History levothyroxine 50 mcg tablet 50 mcg PO DAILYBB 07/29/23 07/29/23 History norethindrone (contraceptive) 0.35 0.35 mg PO HS 07/29/23 07/29/23 History mg tablet omeprazole 40 mg capsule,delayed 40 mg PO AMHS 07/29/23 07/29/23 History release ondansetron 4 mg disintegrating 4 mg PO Q8 PRN Nausea 07/29/23 07/29/23 History tablet spironolactone 50 mg tablet 50 mg PO HS 07/29/23 07/29/23 History Patient History Social History Smoking Status: Never smoker Second Hand Exposure: No; Do You Dip or Chew Tobacco: No; Hx Alcohol Use: No Hx Substance Use: No Preferred Language: Macedonian Communication Ability: Effective [employer] Supervisor Required: No Beliefs That Will Affect Care: None Current Living Situation: Alone Other Information That Helps Us Care for You: No Feels Safe at Home: Yes Safety Concerns: Feels Safe At This Time Assistive Devices: None Review of Systems Review of Systems: All systems reviewed & are unremarkable except as noted in HPI & below Physical Exam Physical Exam: Pleasant woman in no distress Constitutional: WD/WN, vitals as above Eyes: PERRL, conjunctivae normal, anicteric sclerae Neck: trachea midline, no thyromegaly Respiratory: normal respiratory effort, lungs clear to auscultation Cardiovascular: RRR, no murmur, no edema Gastrointestinal (Abdomen): Inspection/Auscultation: normal bowel sounds Percussion/Palpation: + abdomen tender (slightly) and abdomen soft; no hepatosplenomegaly and no abdominal mass Skin: no rashes, warm and dry Results & Data Vital Signs (Past 12 Hours) Vital Signs Temp Pulse Pulse Resp BP BP Pulse Ox 07/29/23 07:54 36.3 C L 88 17 127/87 97 07/29/23 04:50 36.9 C 80 18 133/83 98 07/29/23 01:15 85 07/29/23 00:00 76 13 136/76 98 07/28/23 22:00 75 16 140/97 98 O2 Del Method 07/29/23 07:54 Room Air 07/29/23 04:50 Room Air 07/29/23 01:15 07/29/23 00:00 Room Air 07/28/23 22:00 Room Air Laboratory Results 07/29/23 07/29/23 07/29/23 Range/Units Unknown 07:48 05:40 WBC 7.66 (4.8-10.8) K/ul RBC 4.69 (4.20-5.40) M/uL Hgb 13.3 (12.0-16.0) g/dl Hct 39.8 (37.0-47.0) % MCV 84.9 (80.0-100.0) fL MCH 28.4 (25.0-34.0) pg MCHC 33.4 (32.0-36.0) g/dL RDW Std Deviation 37.2 (36.4-46.3) fL RDW Coeff of Marycarmen 12.0 (11.5-14.5) % Plt Count 284 (130-400) K/uL MPV 11.1 (9.4-12.4) fL Immature Gran % (Auto) 0.3 % Neut % (Auto) 58.9 % Lymph % (Auto) 31.2 % Ransom % (Auto) 8.4 % Eos % (Auto) 0.5 % Baso % (Auto) 0.7 % Neut # (Auto) 4.52 (1.40-6.50) K/uL Lymph # (Auto) 2.39 (1.20-3.40) K/uL Ransom # (Auto) 0.64 H (0.11-0.59) K/uL Eos # (Auto) 0.04 (0.00-0.50) K/uL Baso # (Auto) 0.05 (0.00-0.20) K/uL Immature Gran # (Auto) 0.02 (0.01-0.20) K/uL Sodium 136 (136-145) mmol/L Potassium 3.6 (3.5-5.1) mmol/L Chloride 107 (98-107) mmol/L Carbon Dioxide 22 (21-32) mmol/L Anion Gap 7 (3-11) BUN 7 (6-23) mg/dl Creatinine 0.83 (0.6-1.2) mg/dl Est Cr Clr Drug Dosing 101.8 ml/min Est GFR ( Amer) 104.4 ml/min Est GFR (Non-Af Amer) 90.1 ml/min BUN/Creatinine Ratio 8.4 L (10-20) Glucose 99 (70-99(Fasting)) mg/dl Calcium 8.5 L (8.6-10.3) mg/dl Phosphorus 3.6 (2.5-4.9) mg/dl Magnesium 1.8 (1.7-2.4) mg/dl Total Bilirubin (0.2-1.0) mg/dl AST (13-39) U/L ALT (7-52) U/L Alkaline Phosphatase (34-104) U/L Total Protein (6.0-8.3) gm/dl Albumin (3.4-5.0) gm/dl Globulin (2.5-4.0) gm/dl Albumin/Globulin Ratio (0.9-2) Lipase (11-82) U/L HCG, Qual (Negative) Urine Color Yellow Urine Appearance Clear (Clear) Urine pH 6.0 (4.5-7.5) Ur Specific [place] > 1.045 H (1.000-1.030) Urine Protein Negative (Negative) Urine Glucose (UA) Negative (Negative) Urine Ketones 1+ H (Negative) Urine Blood Negative (Negative) Urine Nitrite Negative (Negative) Urine Bilirubin Negative (Negative) Urine Urobilinogen Negative (Negative) Ur Leukocyte Esterase Negative (Negative) SARS-CoV-2 (PCR) NEGATIVE (Negative) Influenza Type A (PCR) Negative (Neg) Influenza Type B (PCR) Negative (Neg) RSV (RT-PCR) Negative (Neg) 07/28/23 Range/Units 21:14 WBC 10.01 (4.8-10.8) K/ul RBC 5.52 H (4.20-5.40) M/uL Hgb 15.8 (12.0-16.0) g/dl Hct 46.3 (37.0-47.0) % MCV 83.9 (80.0-100.0) fL MCH 28.6 (25.0-34.0) pg MCHC 34.1 (32.0-36.0) g/dL RDW Std Deviation 36.1 L (36.4-46.3) fL RDW Coeff of Marycarmen 11.9 (11.5-14.5) % Plt Count 379 (130-400) K/uL MPV 11.1 (9.4-12.4) fL Immature Gran % (Auto) 0.3 % Neut % (Auto) 66.7 % Lymph % (Auto) 24.8 % Ransom % (Auto) 7.2 % Eos % (Auto) 0.3 % Baso % (Auto) 0.7 % Neut # (Auto) 6.68 H (1.40-6.50) K/uL Lymph # (Auto) 2.48 (1.20-3.40) K/uL Ransom # (Auto) 0.72 H (0.11-0.59) K/uL Eos # (Auto) 0.03 (0.00-0.50) K/uL Baso # (Auto) 0.07 (0.00-0.20) K/uL Immature Gran # (Auto) 0.03 (0.01-0.20) K/uL Sodium 137 (136-145) mmol/L Potassium 3.5 (3.5-5.1) mmol/L Chloride 104 (98-107) mmol/L Carbon Dioxide 20 L (21-32) mmol/L Anion Gap 13 H (3-11) BUN 9 (6-23) mg/dl Creatinine 1.01 (0.6-1.2) mg/dl Est Cr Clr Drug Dosing 82.9 ml/min Est GFR ( Amer) 82.4 ml/min Est GFR (Non-Af Amer) 71.1 ml/min BUN/Creatinine Ratio 8.9 L (10-20) Glucose 98 (70-99(Fasting)) mg/dl Calcium 9.7 (8.6-10.3) mg/dl Phosphorus (2.5-4.9) mg/dl Magnesium (1.7-2.4) mg/dl Total Bilirubin 1.5 H (0.2-1.0) mg/dl AST 14 (13-39) U/L ALT 6 L (7-52) U/L Alkaline Phosphatase 59 (34-104) U/L Total Protein 8.0 (6.0-8.3) gm/dl Albumin 4.5 (3.4-5.0) gm/dl Globulin 3.5 (2.5-4.0) gm/dl Albumin/Globulin Ratio 1.3 (0.9-2) Lipase 51 (11-82) U/L HCG, Qual Negative (Negative) Urine Color Urine Appearance (Clear) Urine pH (4.5-7.5) Ur Specific [place] (1.000-1.030) Urine Protein (Negative) Urine Glucose (UA) (Negative) Urine Ketones (Negative) Urine Blood (Negative) Urine Nitrite (Negative) Urine Bilirubin (Negative) Urine Urobilinogen (Negative) Ur Leukocyte Esterase (Negative) SARS-CoV-2 (PCR) (Negative) Influenza Type A (PCR) (Neg) Influenza Type B (PCR) (Neg) RSV (RT-PCR) (Neg) Diagnostic Findings Abdomen/Pelvis CT 07/28/23 22:58 Exam(s): CT ABDOMEN + PELVIS With Contrast IV Amt: 88 ML EXAM: CT Abdomen and Pelvis With Intravenous Contrast CLINICAL HISTORY: Reason for exam: epigastric pain, n/v, hx gastric sleeve. TECHNIQUE: Axial computed tomography images of the abdomen and pelvis with intravenous contrast. CTDI is 26 mGy and DLP is 1309 mGy-cm. Automated exposure control was utilized for the study. A dose lowering technique was utilized adhering to the principles of ALARA. CONTRAST: Patient received 88 ML of IV contrast COMPARISON: No relevant prior studies available. FINDINGS: Mediastinum: Small hiatal hernia. ABDOMEN: Liver: Unremarkable. Gallbladder and bile ducts: Unremarkable. Pancreas: Unremarkable. Spleen: Unremarkable. Adrenals: Unremarkable. Kidneys and ureters: Unremarkable. No obstructing stones. No hydronephrosis. Stomach and bowel: Status post sleeve gastrectomy without acute abnormality. PELVIS: Appendix: No findings to suggest acute appendicitis. Bladder: Unremarkable. Reproductive: Unremarkable as visualized. ABDOMEN and PELVIS: Intraperitoneal space: Unremarkable. No free air. No significant fluid collection. Bones/joints: No acute fracture. Soft tissues: Unremarkable. Vasculature: Unremarkable. Lymph nodes: Unremarkable. IMPRESSION: 1. No acute abnormality. 2. Status post sleeve gastrectomy without acute abnormality. 3. Small hiatal hernia. Electronically signed by: Kerwin Yepez MD 07/28/23 23:56 PM Chest X-Ray 07/28/23 23:33 XR chest 1V portable HISTORY: 38 years-old Female lightheaded acute dizziness COMPARISON: CT abdomen and pelvis of same day TECHNIQUE: AP view of the chest FINDINGS: Cardiomediastinal and hilar silhouettes are within normal limits. No pneumothora x, pleural effusion or airspace consolidation. Small hiatal hernia. Bones appear grossly intact. IMPRESSION: No acute process. ACT 112: Negative or not required by law. The above report was generated using voice recognition software. It may contain grammatical, syntax or spelling errors. Electronically signed by: Wallace Espino M.D. 07/29/2023 8:20 AM
--- NOTE | 2023-07-29 15:05 | Discharge Summary ---
Discharge Summary Date of Service July 29, 2023 Notes For Next Care Provider Medication Changes From Visit Zofran 4mg q 8h refill Admission HPI Per Admitting Provider 38-year-old female with past med history significant for GERD, iron deficiency anemia following bariatric surgery, depression, presents with persistent nausea vomiting since last Sunday. Patient states having nausea vomiting since last 1 month but persistent since last Sunday. Saw GI last Sunday and her symptoms thought to be from Wegvoy and it was stopped. Last dose of wegvoy was last Sunday and she is taking it since last January. She also was in the [place] ER on Sunday and was given fluids and Zofran and Reglan. Patient said Reglan worked better for her. And she did okay and was discharged. Patient says again since last Sunday she is having persistent nausea vomiting and yesterday she could not eat anything and came back to the ER . Has mild abdominal discomfort. Carmichael shortness of breath earlier but that resolved now. Denies any chest pain. No fevers. No headache. No runny nose or sore throat. No cough. Normal bowel movements. Normal bladder movements. Resting comfortab ly currently. Past medical history. As mentioned above Past surgical history. EGD. Injection of lumbosacral spine. Laparoscopic sleeve gastrectomy Social history. No smoking. No alcohol use. No drug use. Family history. Paternal grandfather had bone cancer. Skin cancer. Paternal grandmother had breast cancer. Bladder cancer. Father has hypertension. Admission Exam Per Admitting Provider General- Not in distress Head- atraumatic Eyes- PERRL. ENT- oropharynx clear Neck- supple, no JVD. Lungs- clear to auscultation no wheezing or crackles. Heart- regular rhythm; no murmur, no gallop. Abdomen- normal bowel sounds, soft, nontender, no distension Extremities- no pretibial edema, no erythema Neuro- alert, oriented PERRL, no facial palsy; no dysarthria; moves extremities. Principal Dx & Hospital Course #1 = Principal Diagnosis (1) Nausea & vomiting: Ms. Arias is a 38-year-old female with past med history significant for GERD, iron deficiency anemia following bariatric surgery, depression, presents with persistent nausea vomiting since last Sunday. Patient states having nausea vomiting since last 1 month but persistent since last Sunday. Saw GI last Sunday and her symptoms thought to be from Wegvoy and it was stopped. Last dose of wegvoy was last Sunday and she is taking it since last January. She also was in the [place] ER on Sunday and was given fluids and Zofran and Reglan. Patient was evaluated by GI and felt that symptoms likely ongoing from Wegovy. Patient tolerated regular diet. Persistent nausea vomiting Thought to be from wegvoy which is currently stopped CT abdomen pelvis okay Lipase is okay GI evaluated: medication side effect, ok to discharge home Hypothyroidism On Synthyroid Depression On paroxetine On day of discharge, patient was doing well and denied any further symptoms. Discharge Exam Constitutional WD/WN, vitals as above Respiratory normal respiratory effort, lungs clear to auscultation Cardiovascular RRR, no murmur, no edema Gastrointestinal (Abdomen) normal bowel sounds, soft, nontender, no hepatosplenomegaly Updated Medication List Medication Instructions Recorded Confirmed Type cyanocobalamin (vitamin B-12) 1,000 mcg IM MONTHLY 07/29/23 07/29/23 History 1,000 mcg/mL injection solution fluoxetine 20 mg capsule 20 mg PO HS 07/29/23 07/29/23 History gabapentin 300 mg capsule 300 mg PO AMHS 07/29/23 07/29/23 History levothyroxine 50 mcg tablet 50 mcg PO DAILYBB 07/29/23 07/29/23 History norethindrone (contraceptive) 0.35 0.35 mg PO HS 07/29/23 07/29/23 History mg tablet omeprazole 40 mg capsule,delayed 40 mg PO AMHS 07/29/23 07/29/23 History release ondansetron 4 mg disintegrating 4 mg PO Q8 PRN Nausea #45 tabs 07/29/23 Rx tablet spironolactone 50 mg tablet 50 mg PO HS 07/29/23 07/29/23 History Hospital Stay Data Consultations 07/29/23 00:16 ED Decision to Admit Stat 07/29/23 08:00 Consult Gastroenterology Routine Diagnostic Imagining Performed 07/28/23 22:58 CT abd pelvis IV con only Stat Pending Results Patient Have Any Pending Studies at Discharge: No Discharge Instructions Given to Patient (Per Discharging Provider) You were admitted for nausea and vomiting which has resolved. you were seen by the stomach doctors/ GI who feels that your symptoms are lasting from Wegovy. These symptoms can persist for 2 weeks and occasionally longer. You tolerated diet without difficult. Supply of antinausea medication sent to pharmacy to help in interim. Total Time Total Time Spent Total Time Spent (In Minutes): 45
[2023-07-29] MEDS ORDERED: FLUoxetine HCL 20 MG CAP PO SCH (21:00)
== END 2023-07-29 16:00 | disposition home or self-care (01) | DRG 392 ==
LOC: ED 20:56 → 3E 07-29 03:02 → INTOOBSV 07-29 03:02 → 3E 07-29 04:47